=== PATIENT | female | born 1995 | race Caucasian/White ===

== ENCOUNTER 2019-08-19 19:39 | Inpatient (IN) | payer SELFPAY ==
[2019-08-19 19:49] VITALS: BP 148/86; PULSE 106; RESP 22; TEMP 36.4; O2SAT 99; BMI 23.9
--- NOTE | 2019-08-19 19:56 | ED_ITS ---
Entered by Ximena Mcdermott, acting as scribe for Arlette Edwards MD, [facility] [place] - Nausea/Vomiting/Diarrhea General: Chief complaint: Nausea/Vomiting/Diarrhea Stated complaint: VOMITING/SOB/DIZZY Time Seen by Provider: 08/19/19 19:57 Source: patient, family and RN notes reviewed Mode of arrival: ambulatory Limitations: no limitations History of Present Illness: HPI Narrative: 24 yo female presents to ED with complaints fo diarrhea, nausea, vomiting and weakness. The patient states she feels like shit . She said she had watery diarrhea all day yesterday and woke this morning nauseated and began vomiting. The patient is type 1 diabetic and her blood glucose is 444, at this time (20:10). The patient states she has muscle spasms all over. The patient mom said the patient has been short of breath today, more like breathing fast and hard. MD elicited complaint: nausea, vomiting and diarrhea Pertinent past history: other (history of DKA, type 1 diabetic) Onset (ago): day(s) (2) Description of vomiting: none Description of diarrhea: watery Associated nausea: Yes Associated abdominal pain: No Severity: severe Quality: other (all over body pain) Exacerbating factors: other (type 1 diabetic) Relieving factors: none Context: other (type 1 diabetic) Associated symtoms: Reports chest pain, malaise, nausea, short of breath and weakness; Denies change in vision, dysuria, headache(s) or palpitations Treatment prior to arrival: none Review of Systems General: Reports: 10 or more systems reviewed and unremarkable except in HPI and below Const: Reports: malaise Eyes: Denies: change in vision or blurry vision ENMT: Denies: throat pain, enlarged tonsils, painful swallowing, hoarseness, mouth pain or swelling of lips/tongue Card: Reports: chest pain; Denies: palpitations, irregular heart rhythm, edema or swelling of feet/ankles Resp: Denies: productive cough or non-productive cough GI: Reports: nausea : Denies: flank pain, difficulty urinating, painful urination, urinary frequency, urinary urgency or urinary hesitancy Musc: Reports: extremity pain (left shoulder), joint pain (left shoulder) and limited range of motion; Denies: neck pain, back pain or extremity swelling Skin/Breast: Denies: rash, itching or redness Neuro: Denies: headache or numbness in extremities Endo: Denies: excessive urination, excessive thirst or tired all the time PFSH ED PFSH: Statuses (acute, chronic, etc) shown below reflect problem list status as previously entered and may not be historically accurate Medical History (Updated 08/19/19 @ 23:05 by Radha Trevizo MD) Depression (Acute) Type 1 diabetes (Acute) Surgical History (Updated 08/19/19 @ 23:06 by Radha Trevizo MD) Previous section (Acute) Family History (Updated 08/19/19 @ 23:06 by Radha Trevizo MD) Denies family history of CAD (coronary artery disease) Bleeding disorder Cancer Social History (Updated 08/19/19 @ 23:07 by Radha Trevizo MD) Smoking and tobacco status: current every day smoker cigarettes Packs smoked per day: 0.5 Alcohol intake: current Alcohol intake frequency: few times a week Substance/Drug Use: never Caregiver/support person: Yes Housing: House Marital status: Legally Physical Exam Const: COMMON NORMALS: average body habitus, oriented x3, no limitations, healthy appearing, alert and well nourished GENERAL APPEARANCE: in distress and ill appearing HENMT: COMMON NORMALS: normocephalic and head/scalp atraumatic; oral mucous membranes not moist (Dry mucous membrane) HEAD & SCALP: normocephalic and atraumatic Eye: COMMON NORMALS: PERRL, EOMs intact bilaterally, conjunctivae normal and no scleral icterus CONJUNCTIVA: Yes conjunctivae normal PUPIL: Yes PERRL Neck/C-Spine: COMMON NORMALS: full ROM, supple, no meningeal signs, no JVD and no carotid bruits Chest: COMMONS NORMALS: inspection of chest normal and palpation of chest normal Resp: COMMON NORMALS: normal respiratory effort, no retractions, no use of accessory muscles, clear to auscultation bilaterally and percussion normal EFFORT & INSPECTION: Yes tachypneic AUSCULTATION: clear to auscultation bilaterally PERCUSSION: percussion normal Cardio: COMMON NORMALS: no JVD, regular rhythm, S1 normal heart sound, S2 normal heart sound, no gallops, no clicks, no murmurs, no rub and peripheral pulses 2+ throughout RATE: tachycardic RHYTHM: regular rhythm HEART SOUNDS: S1 normal and S2 normal PERIPHERAL PULSES: pulses 2+ throughout GI: COMMON NORMALS: normal to inspection, nondistended, normoactive bowel sounds, soft to palpation, non-tender, no hepatosplenomegaly, no masses and no bruits PALPATION: Yes soft and Yes no hepatosplenomegaly : COMMON NORMALS: Yes no CVA tenderness BLADDER/KIDNEY EXAM: Yes no CVA tenderness Back/Pelvis: COMMON NORMALS: no CVA tenderness Extremity: COMMON NORMALS: normal to inspection, full ROM, normal capillary refill, no calf tenderness and no pedal edema Neuro: COMMON NORMALS: oriented x3 SENSORIUM/ORIENTATION: Yes alert MENINGEAL SIGNS: Yes no meningeal signs Skin: COMMON NORMALS: no rashes or lesions noted, no wounds, skin turgor normal, no jaundice, no petechiae and no mottling GENERAL SKIN EXAM: no rashes or lesions noted, turgor normal and dry skin Course Consultations: Consultation #1: Dr. rTevizo, he kindly accepted the patient to his service. Vital Signs: Vital signs: Vital Signs Temperature 99.0 F 08/19/19 20:53 Pulse Rate 122 H 08/19/19 21:00 Respiratory Rate 30 H 08/19/19 21:00 Blood Pressure 132/70 08/19/19 21:00 Pulse Oximetry 100 08/19/19 21:00 MDM - Nausea/Vomiting/Diarrhea MDM Narrative: Medical decision making narrative: 24-year-old female patient with a history of type 1 diabetes mellitus who presented to the emergency department with complaints of vomiting diarrhea and feeling unwell. Evaluation in the emergency department shows the patient is in diabetic ketoacidosis, with severe acidosis. She also has acute kidney injury. She has significant leukocytosis of unclear etiology. The patient has been started on an insulin drip, given 1 ampoule of bicarbonate intravenously and is being admitted to the ICU for further evaluation and management. Medical Records: Attestation: I reviewed the patient's medical records. Lab Data: Attestation: I reviewed the patient's lab results. Labs: Lab Results 08/19/19 08/19/19 08/19/19 Range/Units 20:05 20:23 20:23 WBC 28.6 H (4.0-10.0) 10^3/ uL RBC 5.54 H (4.1-5.3) 10^6/u L Hgb 17.4 H (11.5-15.3) g/dL Hct 53.8 H (37.0-47.0) % MCV 97.1 (81-99) fL MCH 31.4 (28.0-34.0) pg MCHC 32.3 (30.0-36.0) g/dL RDW 11.5 L (12.1-15.1) % Plt Count 349 (130-400) 10^3/c mm MPV 11.7 H (7.4-10.4) fL Neut % (Auto) 81.6 % Lymph % (Auto) 6.6 % Person % (Auto) 7.6 % Eos % (Auto) 0.1 % Baso % (Auto) 0.6 % Neut # (Auto) 23.4 H (1.8-7.7) 10^3/u L Lymph # (Auto) 1.9 (0.8-4.8) 10^3/u L Person # (Auto) 2.2 H (0.2-0.9) 10^3/u L Eos # (Auto) 0.0 (0.0-0.8) 10^3/u L Baso # (Auto) 0.2 H (0.0-0.1) 10^3/u L Nucleated RBC % (a uto) 0 % Nucleated RBCs # 0.0 /100WBC Specimen Type Sample Site ABG pH (7.35-7.45) ABG pCO2 (35-45) mmHg ABG pO2 (80.0-100.0) mmH g ABG HCO3 (22-26) mmol/L ABG Base Excess (-2.0-2.0) mmol/ L Jasen Test Hematocrit (37-47) % Data Designer ID Sodium 130 L (136-145) mmol/L Potassium 6.6 H (3.5-5.1) mmol/L Chloride 95 L (98-107) mmol/L Carbon Dioxide 6 L* (22-29) mmol/L Anion Gap 35.6 H (5-19) BUN 22 H (6-20) mg/dL Creatinine 1.2 H (0.5-0.9) mg/dL GFR Calculation 55.2 L (90-130) mL/min Glucose 552 H* (74-109) mg/dL POC Glucose 444 (70-110) mg/dL Lactate (0.5-2.2) mmol/L Calcium 10.9 H (8.5-10.5) mg/dL Total Bilirubin 0.5 (0.15-1.2) mg/dL AST 21 (0-32) U/L ALT 16 (0-33) U/L Alkaline Phosphata se 178 H (35-105) IU/L Total Protein 9.1 H (6.6-8.7) g/dL Albumin 5.4 H (3.5-5.2) g/dL Globulin 3.7 (1.3-4.6) g/dL Lipase (13-60) U/L HCG, Qual (Negative) Serum Ketones (Negative) 08/19/19 08/19/19 08/19/19 Range/Units 20:23 20:23 20:23 WBC (4.0-10.0) 10^3/ uL RBC (4.1-5.3) 10^6/u L Hgb (11.5-15.3) g/dL Hct (37.0-47.0) % MCV (81-99) fL MCH (28.0-34.0) pg MCHC (30.0-36.0) g/dL RDW (12.1-15.1) % Plt Count (130-400) 10^3/c mm MPV (7.4-10.4) fL Neut % (Auto) % Lymph % (Auto) % Person % (Auto) % Eos % (Auto) % Baso % (Auto) % Neut # (Auto) (1.8-7.7) 10^3/u L Lymph # (Auto) (0.8-4.8) 10^3/u L Person # (Auto) (0.2-0.9) 10^3/u L Eos # (Auto) (0.0-0.8) 10^3/u L Baso # (Auto) (0.0-0.1) 10^3/u L Nucleated RBC % (a uto) % Nucleated RBCs # /100WBC Specimen Type Sample Site ABG pH (7.35-7.45) ABG pCO2 (35-45) mmHg ABG pO2 (80.0-100.0) mmH g ABG HCO3 (22-26) mmol/L ABG Base Excess (-2.0-2.0) mmol/ L Jasen Test Hematocrit (37-47) % Data Designer ID Sodium (136-145) mmol/L Potassium (3.5-5.1) mmol/L Chloride (98-107) mmol/L Carbon Dioxide (22-29) mmol/L Anion Gap (5-19) BUN (6-20) mg/dL Creatinine (0.5-0.9) mg/dL GFR Calculation (90-130) mL/min Glucose (74-109) mg/dL POC Glucose (70-110) mg/dL Lactate 3.8 H (0.5-2.2) mmol/L Calcium (8.5-10.5) mg/dL Total Bilirubin (0.15-1.2) mg/dL AST (0-32) U/L ALT (0-33) U/L Alkaline Phosphata se (35-105) IU/L Total Protein (6.6-8.7) g/dL Albumin (3.5-5.2) g/dL Globulin (1.3-4.6) g/dL Lipase 13 (13-60) U/L HCG, Qual (Negative) Serum Ketones Positive H (Negative) 08/19/19 08/19/19 Range/Units 21:45 21:50 WBC (4.0-10.0) 10^3/ uL RBC (4.1-5.3) 10^6/u L Hgb (11.5-15.3) g/dL Hct (37.0-47.0) % MCV (81-99) fL MCH (28.0-34.0) pg MCHC (30.0-36.0) g/dL RDW (12.1-15.1) % Plt Count (130-400) 10^3/c mm MPV (7.4-10.4) fL Neut % (Auto) % Lymph % (Auto) % Person % (Auto) % Eos % (Auto) % Baso % (Auto) % Neut # (Auto) (1.8-7.7) 10^3/u L Lymph # (Auto) (0.8-4.8) 10^3/u L Person # (Auto) (0.2-0.9) 10^3/u L Eos # (Auto) (0.0-0.8) 10^3/u L Baso # (Auto) (0.0-0.1) 10^3/u L Nucleated RBC % (a uto) % Nucleated RBCs # /100WBC Specimen Type Arterial Sample Site Radial, left ABG pH 6.99 L* (7.35-7.45) ABG pCO2 15.3 L* (35-45) mmHg ABG pO2 125.0 H (80.0-100.0) mmH g ABG HCO3 3.7 L (22-26) mmol/L ABG Base Excess -26.0 L (-2.0-2.0) mmol/ L Jasen Test Pos Hematocrit 51.5 H (37-47) % Data Designer ID [email or web address] Sodium (136-145) mmol/L Potassium (3.5-5.1) mmol/L Chloride (98-107) mmol/L Carbon Dioxide (22-29) mmol/L Anion Gap (5-19) BUN (6-20) mg/dL Creatinine (0.5-0.9) mg/dL GFR Calculation (90-130) mL/min Glucose (74-109) mg/dL POC Glucose (70-110) mg/dL Lactate (0.5-2.2) mmol/L Calcium (8.5-10.5) mg/dL Total Bilirubin (0.15-1.2) mg/dL AST (0-32) U/L ALT (0-33) U/L Alkaline Phosphata se (35-105) IU/L Total Protein (6.6-8.7) g/dL Albumin (3.5-5.2) g/dL Globulin (1.3-4.6) g/dL Lipase (13-60) U/L HCG, Qual Negative (Negative) Serum Ketones (Negative) Discharge Plan Discharge Patient Disposition: Admitted As Inpatient Clinical Impression: ADALID (acute kidney injury) DKA (diabetic ketoacidoses) Qualifiers: Diabetes mellitus type: type 1 Diabetes mellitus complication detail: without coma Qualified Code(s): E10.10 - Type 1 diabetes mellitus with ketoacidosis without coma Leukocytosis Qualifiers: Leukocytosis type: unspecified Qualified Code(s): D72.829 - Elevated white blood cell count, unspecified Condition: Stable Coding Level of Care Code ED Crossbow Maker for Chg Fwd The documentation recorded by the Baldemar amador Valerie R, accurately reflects the service I personally performed and the decisions made by Jerry burks Adegoke I, MD, [facility] Aug 19, 2019 19:39
[2019-08-19 20:08] LABS: Glucose Point of Care 444 mg/dL (70-110)
[2019-08-19] MEDS: sodium chloride 0.9% 1,000 ML 999 ML IV ×3 (20:17→23:08)
[2019-08-19] MEDS: ondansetron 2 mg/ML SDV 2 mL 4 MG IVP (20:19)
[2019-08-19 20:31] LABS: Basophils # 0.2 10^3/uL (0.0-0.1); Basophils % 0.6 %; Eosinophils % 0.1 %; Hematocrit 53.8 % (37.0-47.0); Hemoglobin 17.4 g/dL (11.5-15.3); Lymphocytes # 1.9 10^3/uL (0.8-4.8); Lymphocytes % 6.6 %; Mean Corpuscular HGB Conc 32.3 g/dL (30.0-36.0); Mean Corpuscular Hemoglobin 31.4 pg (28.0-34.0); Mean Corpuscular Volume 97.1 fL (81-99); Mean Platelet Volume 11.7 fL (7.4-10.4); Monocytes # 2.2 10^3/uL (0.2-0.9); Monocytes % 7.6 %; Neutrophils # 23.4 10^3/uL (1.8-7.7); Neutrophils % 81.6 %; Nucleated Red Blood Cells % 0 %; Platelet Count 349 10^3/cmm (130-400); Red Blood Count 5.54 10^6/uL (4.1-5.3); Red Cell Distribution Width 11.5 % (12.1-15.1); White Blood Count 28.6 10^3/uL (4.0-10.0)
[2019-08-19 20:38] LABS: Ketone (Acetest) Serum Positive (Negative)
[2019-08-19 20:45] LABS: Alanine Aminotransferase 16 U/L (0-33); Albumin Level 5.4 g/dL (3.5-5.2); Alkaline Phosphatase 178 IU/L (35-105); Anion Gap 35.6 (5-19); Aspartate Amino Transferase 21 U/L (0-32); Blood Urea Nitrogen 22 mg/dL (6-20); Calcium 10.9 mg/dL (8.5-10.5); Chloride 95 mmol/L (98-107); Globulin 3.7 g/dL (1.3-4.6); Glomerular Filtration Rate 55.2 mL/min (90-130); Potassium 6.6 mmol/L (3.5-5.1); Sodium 130 mmol/L (136-145); Total Bilirubin 0.5 mg/dL (0.15-1.2); Total Protein 9.1 g/dL (6.6-8.7)
[2019-08-19 20:46] LABS: Lactate (Lactic Acid level) 3.8 mmol/L (0.5-2.2)
[2019-08-19] MEDS: promethazine 25 mg/mL SDV 1 mL IM (20:52)
[2019-08-19 20:53] VITALS: BP 124/76; PULSE 110; RESP 26; TEMP 37.2; O2SAT 100
[2019-08-19 21:00] VITALS: BP 132/70; PULSE 122; RESP 30; O2SAT 100
--- NOTE | 2019-08-19 21:11 | XR_ITS ---
WS: [id number] CHEST XRAY TECHNIQUE: Portable chest. CLINICAL INFORMATION: DKA COMPARISON: FINDINGS: Heart: Normal cardiac silhouette. Lungs: Lungs are clear. No consolidation or pleural effusion. Bones: Normal visualized bony structures. XR/XR chest 1V portable [id number] IMPRESSION: Normal chest
[2019-08-19 21:24] LABS: Carbon Dioxide 6 mmol/L (22-29); Glucose 552 mg/dL (74-109)
[2019-08-19 21:56] LABS: Arterial Blood Gas Hematocrit 51.5 % (37-47); Blood Gas Allen Test Pos; Blood Gas Sample Site Radial, left; Blood Gas Sample Type Arterial; HCO3 ABG 3.7 mmol/L (22-26)
[2019-08-19 21:57] LABS: ABG PCO2 15.3 mmHg (35-45); ABG PH Result 6.99 (7.35-7.45)
[2019-08-19 22:05] LABS: HCG Qualitative Urine. Negative (Negative)
[2019-08-19] MEDS: insulin regular-human 250 UNIT in sodium chloride 0.9% 250 ML 12.6 UNIT IV (22:05)
--- NOTE | 2019-08-19 22:14 | CTR_ITS ---
PROCEDURE INFORMATION: Exam: CT Abdomen And Pelvis Without Contrast Exam date and time: 08/19/2019 10:28 PM Age: 24 years old Clinical indication: Nausea and vomiting and other: Dka; Prior surgery; Surgery date: 6+ months; Surgery type: ; Additional info: Vomiting, diarrhea, dka TECHNIQUE: Imaging protocol: Computed tomography of the abdomen and pelvis without contrast. Total DLP: 545.02 mGy-cm Radiation optimization: All CT scans at this facility use at least one of these dose optimization techniques: automated exposure control; mA and/or kV adjustment per patient size (includes targeted exams where dose is matched to clinical indication); or iterative reconstruction. COMPARISON: US Umbilical Artery Echo [id number] 05/23/2016 12:46 PM FINDINGS: Tubes, catheters and devices: A catheter is present in the urinary bladder. Liver: Normal. No mass. Gallbladder and bile ducts: Normal. No calcified stones. No ductal dilation. Pancreas: Normal. No ductal dilation. Spleen: Normal. No splenomegaly. Adrenals: Normal. No mass. Kidneys and ureters: Normal. No hydronephrosis. Stomach and bowel: Mild wall thickening and pericolonic fat stranding is seen in the proximal ascending colon. No intestinal obstruction. Appendix: The appendix is normal. Intraperitoneal space: Unremarkable. No free air. No significant fluid collection. Vasculature: A left-sided IVC is noted. Lymph nodes: Unremarkable. No enlarged lymph nodes. Bladder: Unremarkable as visualized. Reproductive: The uterus and ovaries appear normal. A 3.6 cm left ovarian cyst is noted. An IUD is present in the uterus. Bones/joints: Unremarkable. No acute fracture. Soft tissues: Unremarkable. CT/CT abdomen pelvis con [id number] IMPRESSION: Possible mild colitis. Radiation Dose CTDIVOL = (mGy): DLP = 545.02 (mGy-cm)
[2019-08-19] MEDS: sodium bicarbonate 8.4% 1 mEq/mL 50mL Syr 50 MEQ IVP (22:36)
[2019-08-19 22:51] LABS: Lipase 13 U/L (13-60)
[2019-08-19 23:00] VITALS: BP 135/74; PULSE 117; RESP 28; O2SAT 100
--- NOTE | 2019-08-19 23:04 | PM.HP ---
Providers/Chief Complaint Primary Care Provider: Cricket Collins MD Chief Complaint: VOMITING/SOB/DIZZY History of Present Illness Nikki Smith is a 24 year old female who presented to the hospital with chief complaint of nausea vomiting and diarrhea. Patient is stating that her symptoms started today with intractable nausea and vomiting, she has had more than 10 episodes throughout the day, she is also noticing some abdominal cramps and hypogastric region which is radiating towards her back every time she is urinating. She has noticed subjective fevers, no cough, sputum production, headache, recent flulike symptoms. 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 She ran out of Lantus insulin 2 nights ago. She has been using short acting insulin with carb counting. Diagnostics in ER showed DKA, severe metabolic acidosis, lactic acidemia, ADALID, leukocytosis without obvious signs of infection, chest x-ray negative Urinalysis and lipase is pending I have ordered 1 amp of bicarb currently she is on insulin drip along normal saline second liter of fluid Review of Systems Const: Reports: chills, body aches, change in appetite, fatigue and malaise; Denies: fever Eyes: Denies: change in vision ENMT: Denies: throat pain Card: Denies: chest pain Resp: Denies: shortness of breath GI: Reports: abdominal pain, nausea and vomiting; Denies: coffee grounds in vomit, difficulty swallowing, heartburn/indigestion or constipation : Reports: difficulty urinating, painful urination and urinary frequency; Denies: flank pain Musc: Denies: neck pain or back pain Skin/Breast: Denies: rash Neuro: Denies: headache Psych: Denies: anxiety Endo: Denies: excessive urination Miki/Lymph: Denies: easy bruising All/Imm: Denies: hives Medications/Allergies Allergies Allergy/AdvReac Type Severity Reaction Status Date / Time No Known Allergies Allergy Verified 08/19/19 19:53 PFSH Acute PFSH: Statuses (acute, chronic, etc) shown below reflect problem list status as previously entered and may not be historically accurate Medical History (Updated 08/19/19 @ 23:05 by Radha Trevizo MD) Depression (Acute) Type 1 diabetes (Acute) Surgical History (Updated 08/19/19 @ 23:06 by Radha Trevizo MD) Previous section (Acute) Family History (Updated 08/19/19 @ 23:06 by Radha Trevizo MD) Denies family history of CAD (coronary artery disease) Bleeding disorder Cancer Social History (Updated 08/19/19 @ 23:07 by Radha Trevizo MD) Smoking and tobacco status: current every day smoker cigarettes Packs smoked per day: 0.5 Alcohol intake: current Alcohol intake frequency: few times a week Substance/Drug Use: never Caregiver/support person: Yes Housing: House Marital status: Legally Vitals/I&O/Wt Last Vital Signs Temp 99.0 F 08/19/19 20:53 Pulse 110 H 08/19/19 20:53 Resp 26 H 08/19/19 20:53 BP 124/76 08/19/19 20:53 Pulse Ox 100 08/19/19 20:53 08/19/19 08/19/19 08/20/19 14:59 22:59 06:59 Intake Total 1002.94 / 1002.94 Balance 1002.94 / 1002.94 Weight last 48 hrs Weight 61.235 kg Physical Exam Narrative: EXAM NARRATIVE: This is a young female looks extremely dehydrated, seems to be in distress because abdominal pain She is tachypneic without any respiratory distress Abdomen is soft nontender nondistended bowels are present S1, S2, tachycardia, no signs of heart failure Lungs are clear to auscultation Patient seems anxious with irritable mood No active suicidal homicidal ideation Skin does not show any signs of ischemia gangrene ulcer Lower extremities without any gross abnormalities Data : 08/19/19 20:23 08/19/19 20:23 A&P Assessment and plan (1) DKA (diabetic ketoacidoses): Status: Acute Qualifiers: Diabetes mellitus complication detail: without coma Diabetes mellitus type: type 1 Qualified Code(s): E10.10 - Type 1 diabetes mellitus with ketoacidosis without coma Code(s): E11.10 - Type 2 diabetes mellitus with ketoacidosis without coma (2) ADALID (acute kidney injury): Status: Acute Code(s): N17.9 - Acute kidney failure, unspecified (3) Leukocytosis: Status: Acute Qualifiers: Leukocytosis type: unspecified Qualified Code(s): D72.829 - Elevated white blood cell count, unspecified Code(s): D72.829 - Elevated white blood cell count, unspecified Additional A&P Information Severe diabetic ketoacidosis She ran out of Lantus insulin 2 nights ago, she has been having diarrhea with urinary frequency and burning DKA protocol Severe metabolic acidosis Lactic acidemia High anion gap with respiratory alkalosis 1 amp of bicarb Patient has received 2 L of fluid, I will give her 1 more normal saline bolus Leukocytosis with tachypnea and tachycardia I believe the symptoms are secondary to ketosis but because she is complaining of urinary tract infection symptoms I will start her on ceftriaxone, she has received adequate fluids in ER Hyperglycemia induced hyponatremia: Corrected sodium is normal Bipolar disorder: Previously she was on lithium and Depakote currently she is not taking any anxiolytics or mood stabilizers No need of DVT prophylaxis because of her young age UTI: I will start her on ceftriaxone Attestations Medical Necessity Statement*: Anticipating her stay to cross more than 2 midnights, clinical course will depend on her glucose control, she is in DKA needs ICU care Time Spent in Patient Care: 60 Coding Level of Care Code Acute Janitor Supervisor for [facility] Junaid Diagnoses DKA (diabetic ketoacidoses) E10.10 Diabetes mellitus complication detail: without coma Diabetes mellitus type: type 1 ADALID (acute kidney injury) N17.9 Leukocytosis D72.829 Leukocytosis type: unspecified
[2019-08-19 23:17] LABS: Protein Urine Trace (Negative); Urine Appearance Clear (CLEAR); Urine Color Straw (Yellow); pH Urine 5 (5-7)
[2019-08-19 23:18] LABS: Bilirubin Urine Neg (NEGATIVE); Blood Urine 2+ (Negative); Glucose Urine UA 4+ (Normal); Ketones Urine 3+ (Negative); Nitrate Urine Negative (Negative); Urobilinogen Urine Norm (Negative)
[2019-08-19 23:20] LABS: Add Urine Microscopic? YES; Leukocyte Esterase Urine Negative (Negative)
[2019-08-19 23:22] LABS: Add Urine Culture? No; Amphetamines Screen Urine Negative (Negative); Bacteria Urine TRACE; Barbiturates Screen Urine Negative (Negative); Benzodiazepines Screen Urine Negative (Negative); Cocaine Screen Urine Negative (Negative); Opiate Screen Urine Negative (Negative); PCP Screen Urine Negative (Negative); RBC Urine 0-4 /hpf (0-2); WBC Urine 0-4 /hpf (0-5)
[2019-08-19 23:23] LABS: THC Screen Urine Negative (Negative)
--- NOTE | 2019-08-19 23:24 | PC.NURSE ---
Lakisha's blood sugar is 251, nurse was notified
[2019-08-19 23:25] LABS: Glucose Point of Care 251 mg/dL (70-110)
[2019-08-19 23:25] LABS: Glucose Point of Care 472 mg/dL (70-110)
[2019-08-19 23:25] LABS: Glucose Point of Care 417 mg/dL (70-110)
[2019-08-19 23:47] VITALS: BP 126/64; PULSE 110; RESP 28; O2SAT 100
[2019-08-20] VITALS (31 sets, daily range): BP systolic 86–122; BP diastolic 41–73; PULSE 85–125; RESP 17–26; TEMP 36.8–38.1; O2SAT 97–100
[2019-08-20 00:41] LABS: Glucose Point of Care 143 mg/dL (70-110)
[2019-08-20] MEDS: sodium bicarbonate 150 MEQ in dextrose 5% 1,000 ML IV (00:44)
[2019-08-20 01:19] LABS: Glucose Point of Care 112 mg/dL (70-110)
[2019-08-20 02:20] LABS: Glucose Point of Care 120 mg/dL (70-110)
[2019-08-20 03:00] LABS: Blood Urea Nitrogen 14 mg/dL (6-20); Chloride 106 mmol/L (98-107); Glomerular Filtration Rate 76.9 mL/min (90-130); Glucose 145 mg/dL (74-109); Osmolality Calculated 281 mOsm/kg (285-295); Sodium 136 mmol/L (136-145)
[2019-08-20 03:06] LABS: Carbon Dioxide 9 mmol/L (22-29)
[2019-08-20 03:18] LABS: Glucose Point of Care 140 mg/dL (70-110)
[2019-08-20 04:16] LABS: Glucose Point of Care 139 mg/dL (70-110)
[2019-08-20 04:33] LABS: Basophils # 0.1 10^3/uL (0.0-0.1); Basophils % 0.4 %; Hematocrit 38.3 % (37.0-47.0); Lymphocytes % 10.5 %; Mean Corpuscular HGB Conc 33.9 g/dL (30.0-36.0); Mean Corpuscular Hemoglobin 31.4 pg (28.0-34.0); Mean Corpuscular Volume 92.5 fL (81-99); Mean Platelet Volume 11.7 fL (7.4-10.4); Monocytes # 1.4 10^3/uL (0.2-0.9); Monocytes % 7.4 %; Neutrophils # 15.4 10^3/uL (1.8-7.7); Neutrophils % 78.9 %; Nucleated Red Blood Cells % 0 %; Platelet Count 241 10^3/cmm (130-400); Red Blood Count 4.14 10^6/uL (4.1-5.3); Red Cell Distribution Width 11.5 % (12.1-15.1); White Blood Count 19.5 10^3/uL (4.0-10.0)
[2019-08-20 04:43] LABS: Anion Gap 22.7 (5-19); Blood Urea Nitrogen 14 mg/dL (6-20); Calcium 9.3 mg/dL (8.5-10.5); Carbon Dioxide 11 mmol/L (22-29); Chloride 108 mmol/L (98-107); Glomerular Filtration Rate 68.1 mL/min (90-130); Glucose 176 mg/dL (74-109); Osmolality Calculated 287 mOsm/kg (285-295); Potassium 3.7 mmol/L (3.5-5.1); Sodium 138 mmol/L (136-145)
[2019-08-20 05:19] LABS: Glucose Point of Care 137 mg/dL (70-110)
--- NOTE | 2019-08-20 06:24 | PC.NURSE ---
SHIFT SUMMARY PT HAS BEEN ALERT AND ORIENTED. PT INSULIN DRIP REMAINS RUNNING. PT HAS SLIGHT NAUSEA. PT HAS HAD ADEQUATE URINE OUTPUT. PT IV REMAINS PATENT.
[2019-08-20 06:34] LABS: Glucose Point of Care 217 mg/dL (70-110)
[2019-08-20 07:30] LABS: Glucose Point of Care 194 mg/dL (70-110)
[2019-08-20] MEDS: D5-NS 0.45% + KCL 20 mEq 20 MEQ/1,000 ML BAG 100 MEQ IV ×2 (07:36→17:23)
--- NOTE | 2019-08-20 07:45 | PM.PN ---
Subjective Subjective: Interval history: Nikki reports she is feeling better. Does not feel nauseated. Would like a clear liquid diet. Does admit to some congestion lately along with some loose stools. Medications: Reviewed: Yes Vitals/I&O/Wt Last Vital Signs Temp 99.7 F H 08/20/19 06:00 Pulse 102 H 08/20/19 06:00 Resp 23 H 08/20/19 06:00 BP 94/53 08/20/19 06:00 Pulse Ox 99 08/20/19 06:00 08/19/19 08/20/19 08/20/19 22:59 06:59 14:59 Intake Total 1002.94 / 1002.94 1036.885 / 2039.825 3.823 / 3.823 Output Total 850 / 850 Balance 1002.94 / 1002.94 186.885 / 1189.825 3.823 / 3.823 Weight last 48 hrs Weight 61.235 kg Physical Exam Narrative: EXAM NARRATIVE: General exam is no apparent distress Cardiovascular slightly tachycardic, no murmur Lungs clear Abdomen is soft with positive bowel sounds Extremities no cyanosis clubbing or edema Urinary Catheter Management^: Shannon: Cath Placed During This Visit: no 2-way Urethral: Cath Placed During This Visit: no Data : 08/20/19 03:45 08/20/19 03:45 A&P Assessment and plan (1) DKA (diabetic ketoacidoses): Associated with severe anion gap metabolic acidosis consistent with DKA on admission. Pseudohyponatremia noted. She received bicarb in the emergency department. Still with significant anion gap. Still needs insulin drip, D5 until this clears. Next BMP is planned at 09 100. However, is improving and bicarb is climbing. Etiology is secondary to her running out of insulin several days ago, although viral illness is also possible. When anion gap clears, will initiate subcutaneous insulin. She will likely be discharged tomorrow if continues to improve. Status: Acute Qualifiers: Diabetes mellitus complication detail: without coma Diabetes mellitus type: type 1 Qualified Code(s): E10.10 - Type 1 diabetes mellitus with ketoacidosis without coma Code(s): E11.10 - Type 2 diabetes mellitus with ketoacidosis without coma (2) ADALID (acute kidney injury): Resolved Status: Acute Code(s): N17.9 - Acute kidney failure, unspecified (3) Leukocytosis: Status: Acute Qualifiers: Leukocytosis type: unspecified Qualified Code(s): D72.829 - Elevated white blood cell count, unspecified Code(s): D72.829 - Elevated white blood cell count, unspecified Additional A&P Information Elevated temperature. Will need to exclude influenza. Check blood cultures. She was placed on Rocephin on admission for some concerns of urinary tract infection. We will continue this until further studies have been obtained. On review of urine 0-4 white blood cells are noted. Chest x-ray reading is pending. Question of colitis on CT. She has had no further loose stool here Leukocytosis. Likely demargination from severe DKA, but cannot exclude viral illness History of bipolar disorder Attestations Medical Necessity Statement*: Needs continued hospitalization for insulin drip secondary to DKA Critical Care Time: 32 minutes spent in critical care time secondary to insulin drip, severe acidosis on admission, exploration of possible infectious disease. Critical Care Time (min): 32 Coding Level of Care Code Acute Head Orthopedic Team Physician for [employer] Fwd Diagnoses DKA (diabetic ketoacidoses) E10.10 Diabetes mellitus complication detail: without coma Diabetes mellitus type: type 1 ADALID (acute kidney injury) N17.9 Leukocytosis D72.829 Leukocytosis type: unspecified
[2019-08-20 08:38] LABS: Glucose Point of Care 166 mg/dL (70-110)
[2019-08-20 09:16] LABS: Influenza A by IFA Negative (Negative); Influenza B by IFA Negative (Negative)
[2019-08-20] MEDS: cefTRIAXone 1,000 MG in sodium chloride 0.9% (plus) 50 ML 100 MG IV (09:39)
[2019-08-20 09:47] LABS: Glucose Point of Care 295 mg/dL (70-110)
[2019-08-20 10:44] LABS: Glucose Point of Care 347 mg/dL (70-110)
[2019-08-20 11:08] LABS: Anion Gap 18.4 (5-19); Blood Urea Nitrogen 10 mg/dL (6-20); Calcium 8.8 mg/dL (8.5-10.5); Carbon Dioxide 18 mmol/L (22-29); Chloride 103 mmol/L (98-107); Creatinine Clr Calc Pharmacy 95.7481; Glomerular Filtration Rate 88.1 mL/min (90-130); Glucose 359 mg/dL (74-109); Osmolality Calculated 292 mOsm/kg (285-295); Potassium 3.4 mmol/L (3.5-5.1); Sodium 136 mmol/L (136-145)
[2019-08-20 11:37] LABS: Glucose Point of Care 270 mg/dL (70-110)
[2019-08-20] MEDS: acetaminophen 325 mg Tablet 650 MG PO ×2 (11:43→20:29)
[2019-08-20 12:36] LABS: Glucose Point of Care 228 mg/dL (70-110)
[2019-08-20 13:44] LABS: Glucose Point of Care 210 mg/dL (70-110)
[2019-08-20 14:48] LABS: Glucose Point of Care 128 mg/dL (70-110)
[2019-08-20 15:35] LABS: Glucose Point of Care 79 mg/dL (70-110)
[2019-08-20 16:36] LABS: Glucose Point of Care 106 mg/dL (70-110)
[2019-08-20 16:55] LABS: Blood Gas CCRB Time 1010
[2019-08-20 17:46] LABS: Glucose Point of Care 101 mg/dL (70-110)
[2019-08-20 18:39] LABS: Glucose Point of Care 154 mg/dL (70-110)
--- NOTE | 2019-08-20 19:27 | PM.EVENT ---
Event Note Event Note: . Gap is closed, I will bridge her with subcutaneous insulin with IV insulin for 2 hours continue D5 half-normal saline with potassium. I will start her on Lantus 25 units twice a day
[2019-08-20 19:38] LABS: Glucose Point of Care 155 mg/dL (70-110)
[2019-08-20] MEDS: insulin glargine 100 units/1 mL 25 UNIT SUBCUT (20:29)
[2019-08-20 20:38] LABS: Glucose Point of Care 160 mg/dL (70-110)
--- NOTE | 2019-08-20 22:39 | PC.NURSE ---
PER DR BARRIOS ORDERS. LANTUS WAS GIVEN, INSULIN DRIP RAN FOR TWO HOURS TO BRIDGE HER OVER. INSULIN NOW TURNED OFF. WILL RECHECK BLOOD SUGAR IN A COUPLE OF HOURS. PT HAS NO COMPLAINTS CURRENTLY. PT WAS ABLE TO EAT, NO NAUSEA OR VOMITING.
[2019-08-21] VITALS (10 sets, daily range): BP systolic 94–118; BP diastolic 55–96; PULSE 76–93; RESP 13–21; TEMP 36.8–37.2; O2SAT 97–100
[2019-08-21 00:56] LABS: Glucose Point of Care 251 mg/dL (70-110)
[2019-08-21 04:22] LABS: Basophils % 0.2 %; Eosinophils % 0.3 %; Hemoglobin 12.1 g/dL (11.5-15.3); Lymphocytes # 3.3 10^3/uL (0.8-4.8); Lymphocytes % 33.1 %; Mean Corpuscular HGB Conc 34.6 g/dL (30.0-36.0); Mean Corpuscular Volume 89.7 fL (81-99); Mean Platelet Volume 11.5 fL (7.4-10.4); Monocytes # 0.8 10^3/uL (0.2-0.9); Monocytes % 7.8 %; Neutrophils # 5.7 10^3/uL (1.8-7.7); Neutrophils % 58.1 %; Nucleated Red Blood Cells % 0 %; Platelet Count 182 10^3/cmm (130-400); Red Cell Distribution Width 11.6 % (12.1-15.1); White Blood Count 9.8 10^3/uL (4.0-10.0)
[2019-08-21 04:31] LABS: Anion Gap 13.1 (5-19); Blood Urea Nitrogen 6 mg/dL (6-20); Calcium 8.9 mg/dL (8.5-10.5); Carbon Dioxide 22 mmol/L (22-29); Chloride 107 mmol/L (98-107); Glomerular Filtration Rate 122.8 mL/min (90-130); Glucose 298 mg/dL (74-109); Osmolality Calculated 293 mOsm/kg (285-295); Potassium 4.1 mmol/L (3.5-5.1); Sodium 138 mmol/L (136-145)
[2019-08-21 06:22] LABS: Glucose Point of Care 237 mg/dL (70-110)
--- NOTE | 2019-08-21 07:01 | PC.NURSE ---
SHIFT SUMMARY PT HAS BEEN ALERT AND ORIENTATED. DR BARRIOS GAVE ORDER TO SHU OVIEDO. PT TOOK SHOWER THIS MORNING. PT LUNGS REMAIN CLEAR. AFEBRILE. NO NAUSEA OR VOMITING NOTED THIS SHIFT. WAS ABLE TO EAT A SANDWICH.
--- NOTE | 2019-08-21 07:36 | PM.DCS ---
Discharge Providers Date of Admission: 08/19/19 22:36 Date of Discharge: Date of Discharge: August 21, 2019 Attending Provider at Admission: Radha Trevizo MD Attending Provider at Discharge: Mat Chapin MD Primary Care Provider: Cricket Collins MD Diagnoses at Discharge Discharge Diagnosis (1) DKA (diabetic ketoacidoses): Status: Acute Problem details: Anion gap closed. DKA resolved. Discharge home Qualifiers: Diabetes mellitus complication detail: without coma Diabetes mellitus type: type 1 Qualified Code(s): E10.10 - Type 1 diabetes mellitus with ketoacidosis without coma (2) ADALID (acute kidney injury): Status: Acute Problem details: Resolved (3) Leukocytosis: Status: Acute Problem details: Resolved Qualifiers: Leukocytosis type: unspecified Qualified Code(s): D72.829 - Elevated white blood cell count, unspecified Reason for Visit Reason for Visit: Reason For Visit: DKA Hospital Course Hospital Course: Nikki is a 24-year-old white female who presented to the hospital with history of not taking her insulin for the last 2 days, running out. She was in DKA with a pH of 6.9. She received resuscitation in the emergency department including fluids, bicarb, insulin drip and transferred to the ICU. While in the ICU she improved rather rapidly. By August 21 her anion gap was closed. She received subcutaneous insulin the night before and had transition to this well. It was thought she could be discharged home with instructions to take her insulin as prescribed. Work-up during her hospitalization did not demonstrate any infection, with her receiving urine testing, chest x-ray, influenza testing. Physical Exam Narrative: EXAM NARRATIVE: General exam no apparent distress Cardiovascular regular in rhythm without murmur Lungs clear Abdomen is soft with positive bowel sounds Extremities no cyanosis clubbing or edema Urinary Catheter Management^: Shannon: Cath Placed During This Visit: no 2-way Urethral: Cath Placed During This Visit: no Discharge Data Data Completed and Pending: Completed Studies During Hospitalization Category Date Time Status CT abdomen pelvis wo con [id number] Urge nt Cat Scan 08/19/19 22:14 Completed XR chest 1V sunny ble [id number] Stat Exams 08/19/19 21:11 Completed Pending at discharge Category Date Time Status Blood Culture Sta t Lab 08/20/19 10:18 Results Labs from last 24 hours 08/21/19 08/21/1920 06:19 03:49 03:49 WBC 9.8 RBC 3.90 L Hgb 12.1 Hct 35.0 L MCV 89.7 MCH 31.0 MCHC 34.6 RDW 11.6 L Plt Count 182 MPV 11.5 H Neut % (Auto) 58.1 Lymph % (Auto) 33.1 [place] % (Auto) 7.8 Eos % (Auto) 0.3 Baso % (Auto) 0.2 Neut # (Auto) 5.7 Lymph # (Auto) 3.3 [place] # (Auto) 0.8 Eos # (Auto) 0.0 Baso # (Auto) 0.0 Nucleated RBC % (a uto) 0 Nucleated RBCs # 0.0 O2 Delivery Device Blood Gas Notified Time Sodium 138 Potassium 4.1 Chloride 107 Carbon Dioxide 22 Anion Gap 13.1 BUN 6 Creatinine 0.6 GFR Calculation 122.8 Glucose 298 H POC Glucose 237 Calculated Osmolal ity 293 Calcium 8.9 Influenza Type A A g POC Influenza B Ag 08/21/19 08/20/19 08/20/19 00:50 20:33 19:30 WBC RBC Hgb Hct MCV MCH MCHC RDW Plt Count MPV Neut % (Auto) Lymph % (Auto) [place] % (Auto) Eos % (Auto) Baso % (Auto) Neut # (Auto) Lymph # (Auto) [place] # (Auto) Eos # (Auto) Baso # (Auto) Nucleated RBC % (a uto) Nucleated RBCs # O2 Delivery Device Blood Gas Notified Time Sodium Potassium Chloride Carbon Dioxide Anion Gap BUN Creatinine GFR Calculation Glucose POC Glucose 251 160 155 Calculated Osmolal ity Calcium Influenza Type A A g POC Influenza B Ag 08/20/19 08/20/19 08/20/19 18:36 17:31 16:34 WBC RBC Hgb Hct MCV MCH MCHC RDW Plt Count MPV Neut % (Auto) Lymph % (Auto) [place] % (Auto) Eos % (Auto) Baso % (Auto) Neut # (Auto) Lymph # (Auto) [place] # (Auto) Eos # (Auto) Baso # (Auto) Nucleated RBC % (a uto) Nucleated RBCs # O2 Delivery Device Blood Gas Notified Time Sodium Potassium Chloride Carbon Dioxide Anion Gap BUN Creatinine GFR Calculation Glucose POC Glucose 154 101 106 Calculated Osmolal ity Calcium Influenza Type A A g POC Influenza B Ag 08/20/19 08/20/19 08/20/19 15:30 14:44 13:39 WBC RBC Hgb Hct MCV MCH MCHC RDW Plt Count MPV Neut % (Auto) Lymph % (Auto) [place] % (Auto) Eos % (Auto) Baso % (Auto) Neut # (Auto) Lymph # (Auto) [place] # (Auto) Eos # (Auto) Baso # (Auto) Nucleated RBC % (a uto) Nucleated RBCs # O2 Delivery Device Blood Gas Notified Time Sodium Potassium Chloride Carbon Dioxide Anion Gap BUN Creatinine GFR Calculation Glucose POC Glucose 79 128 210 Calculated Osmolal ity Calcium Influenza Type A A g POC Influenza B Ag 08/20/19 08/20/19 08/20/19 12:29 11:33 10:40 WBC RBC Hgb Hct MCV MCH MCHC RDW Plt Count MPV Neut % (Auto) Lymph % (Auto) [place] % (Auto) Eos % (Auto) Baso % (Auto) Neut # (Auto) Lymph # (Auto) [place] # (Auto) Eos # (Auto) Baso # (Auto) Nucleated RBC % (a uto) Nucleated RBCs # O2 Delivery Device Blood Gas Notified Time Sodium Potassium Chloride Carbon Dioxide Anion Gap BUN Creatinine GFR Calculation Glucose POC Glucose 228 270 347 Calculated Osmolal ity Calcium Influenza Type A A g POC Influenza B Ag 08/20/19 08/20/19 08/20/19 10:14 09:42 08:31 WBC RBC Hgb Hct MCV MCH MCHC RDW Plt Count MPV Neut % (Auto) Lymph % (Auto) [place] % (Auto) Eos % (Auto) Baso % (Auto) Neut # (Auto) Lymph # (Auto) [place] # (Auto) Eos # (Auto) Baso # (Auto) Nucleated RBC % (a uto) Nucleated RBCs # O2 Delivery Device Blood Gas Notified Time Sodium 136 Potassium 3.4 L Chloride 103 Carbon Dioxide 18 L Anion Gap 18.4 BUN 10 Creatinine 0.8 GFR Calculation 88.1 L Glucose 359 H POC Glucose 295 166 Calculated Osmolal ity 292 Calcium 8.8 Influenza Type A A g POC Influenza B Ag 08/20/19 08/19/19 07:55 21:45 WBC RBC Hgb Hct MCV MCH MCHC RDW Plt Count MPV Neut % (Auto) Lymph % (Auto) [place] % (Auto) Eos % (Auto) Baso % (Auto) Neut # (Auto) Lymph # (Auto) [place] # (Auto) Eos # (Auto) Baso # (Auto) Nucleated RBC % (a uto) Nucleated RBCs # O2 Delivery Device Not Reportable Blood Gas Notified Time 1010 Sodium Potassium Chloride Carbon Dioxide Anion Gap BUN Creatinine GFR Calculation Glucose POC Glucose Calculated Osmolal ity Calcium Influenza Type A A g Negative POC Influenza B Ag Negative Vitals: Last Vital Signs Temp 98.2 F 08/21/19 04:00 Pulse 76 08/21/19 06:00 Resp 16 08/21/19 06:00 BP 102/55 08/21/19 06:00 Pulse Ox 98 08/21/19 06:00 Discharge Plan Discharge Patient Disposition: Home, Self-Care Condition: Stable Prescriptions: Continued Lantus U-100 Insulin 100 unit/mL Solution 25 unit SUBCUT BID RF: 0 Humalog KwikPen Insulin RF: 0 Discharge Orders: Discharge Order (Routine); Ordered 08/21/19 Ordered By: Mat Chapin Referrals: Cricket Collins MD [Primary Care Provider] - 4-7 days Discharge Diet: Diabetic Discharge Activity: Resume usual activity Activity Restrictions/Additional Instructions: Take insulin as prescribed. Follow-up with primary care provider next week. Discharge Attestations Time Spent in Discharge Care*: greater than 30 min Quality Metrics Clinical Quality Measures During this hospital stay, did patient experience: None Coding Level of Care Code Acute Ice Seller for Chg Fwd Diagnoses DKA (diabetic ketoacidoses) E10.10 Diabetes mellitus complication detail: without coma Diabetes mellitus type: type 1 ADALID (acute kidney injury) N17.9 Leukocytosis D72.829 Leukocytosis type: unspecified
[2019-08-21 07:38] LABS: Glucose Point of Care 243 mg/dL (70-110)
[2019-08-21] MEDS: cefTRIAXone 1,000 MG in sodium chloride 0.9% (plus) 50 ML 100 MG IV (08:11)
[2019-08-21] MEDS: insulin glargine 100 units/1 mL 25 UNIT SUBCUT (08:12)
[2019-08-21 12:29] LABS: Glucose Point of Care 179 mg/dL (70-110)
--- NOTE | 2019-08-21 13:11 | PC.NURSE ---
pt discharged at 1250. Pt left with parents. Pres[place] delivered [place] [facility] [place]. Belongings sent with pt. disease specific education provided.
== END 2019-08-21 12:50 | disposition home or self-care (01) | DRG 638 ==
LOC: ER 23:27 → ICU 23:27
PROVIDERS: Admitting Provider Internal Medicine; Emergency Provider Family Medicine; Family Provider Family Medicine; PCP Family Medicine; Visit Provider Internal Medicine
DX: E10.10 Type 1 diabetes mellitus with ketoacidosis without coma (principal); N17.9 Acute kidney failure, unspecified; D72.829 Elevated white blood cell count, unspecified; Z91.128 Patient's intentional underdosing of medication regimen for other reason; Z79.4 Long term (current) use of insulin
CPT/HCPCS: 12345; 36415; 36416; 36600; 51702; 71045; 74176; 80048; 80053; 80307; 81001; 81025; 82009; 82803; 82962; 83605; 83690; 85025; 87040; 87804; 96360; 96372; 96374; 99284; J0696; J1815; J2405; J2550; J7030; J7050

== ENCOUNTER 2020-01-30 13:25 | Emergency (ER) | payer OTHER, SELFPAY ==
[2020-01-30 13:33] VITALS: BP 137/95; PULSE 112; RESP 18; TEMP 37; O2SAT 97; BMI 24.7
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
[2020-01-30] MEDS: ondansetron 4 MG Tablet PO (15:56)
[2020-01-30] MEDS: azithromycin 250 mg Tablet 1000 MG PO (16:10)
[2020-01-30] MEDS: tetanus-dipt-pertussis 0.5 mL SDV IM (16:14)
[2020-01-30] MEDS: cefTRIAXone 250 mg SDV IM (16:14)
[2020-01-30 16:21] LABS: Basophils # 0.1 10^3/uL (0.0-0.1); Basophils % 0.3 %; Eosinophils % 0.1 %; Hematocrit 41.1 % (37.0-47.0); Hemoglobin 14.1 g/dL (11.5-15.3); Lymphocytes # 2.2 10^3/uL (0.8-4.8); Lymphocytes % 15.1 %; Mean Corpuscular HGB Conc 34.3 g/dL (30.0-36.0); Mean Corpuscular Hemoglobin 31.4 pg (28.0-34.0); Mean Corpuscular Volume 91.5 fL (81-99); Mean Platelet Volume 11.2 fL (7.4-10.4); Monocytes # 0.9 10^3/uL (0.2-0.9); Monocytes % 6.3 %; Neutrophils # 11.19 10^3/uL (1.8-7.7); Neutrophils % 77.7 %; Nucleated Red Blood Cells % 0 %; Platelet Count 243 10^3/cmm (130-400); Red Blood Count 4.49 10^6/uL (4.1-5.3); Red Cell Distribution Width 11.8 % (12.1-15.1); White Blood Count 14.4 10^3/uL (4.0-10.0)
[2020-01-30 16:37] LABS: Alanine Aminotransferase < 5 U/L (0-33); Albumin Level 4.6 g/dL (3.5-5.2); Alkaline Phosphatase 122 IU/L (35-105); Anion Gap 17.7 (5-19); Aspartate Amino Transferase 27 U/L (0-32); Blood Urea Nitrogen 13 mg/dL (6-20); Calcium 9.9 mg/dL (8.5-10.5); Carbon Dioxide 19 mmol/L (22-29); Chloride 103 mmol/L (98-107); Creatinine Clr Calc Pharmacy 129.7348; Globulin 2.4 g/dL (1.3-4.6); Glomerular Filtration Rate 122.8 mL/min (90-130); Glucose 183 mg/dL (65-115); Osmolality Calculated 283 mOsm/kg (285-295); Potassium 3.7 mmol/L (3.5-5.1); Sodium 136 mmol/L (136-145); Total Bilirubin 0.8 mg/dL (0.15-1.2)
[2020-01-30] MEDS: lidocaine 1% INJ 20 mL IM (16:37)
[2020-01-30] MEDS: emtricitabine/tenofovir 200 mg-300 mg TABLET 1 TAB PO (16:38)
[2020-01-30 16:58] LABS: Hepatitis A Antibody IgM Non-Reactive (Nonreactive); Hepatitis B Core AB, Total Non-Reactive (Nonreactive); Hepatitis B Surface AB 3.5 (0-8.5); Hepatitis B Surface Antigen Non-Reactive (Nonreactive); Hepatitis C Virus Antibody Non-Reactive (Nonreactive)
[2020-01-30 17:18] LABS: HIV 1 & 2 Antibody Non-Reactive (Non-Reactiv); HIV 1 & 2 Antigen Non-Reactive (Non-Reactiv)
[2020-01-30 18:24] VITALS: BP 116/53; PULSE 78; RESP 18; O2SAT 99
== END 2020-01-30 18:33 | disposition home or self-care (01) ==
PROVIDERS: Emergency Provider Nurse Practitioner Family; PCP Family Medicine
DX: T74.21XA Adult sexual abuse, confirmed, initial encounter (principal); E10.9 Type 1 diabetes mellitus without complications; Z79.4 Long term (current) use of insulin; F17.210 Nicotine dependence, cigarettes, uncomplicated; Z23 Encounter for immunization
CPT/HCPCS: 12345; 36415; 80053; 85025; 86705; 86706; 86709; 86803; 87340; 87806; 90471; 90715; 96372; 99281; E0352; J0696; Q0144; Q0162

== ENCOUNTER → 2020-02-11 10:22 | Outpatient (BNVA) | payer OTHER, SELFPAY | PROVIDERS: PCP Family Medicine; Visit Provider Nurse Practitioner Family | DX: Z04.89 Encounter for examination and observation for other specified reasons (principal); Z79.899 Other long term (current) drug therapy; Z13.31 Encounter for screening for depression | CPT/HCPCS: 80053; 80061; 81025; 83036; 84443; 85025; 87491; 87591; 87661 ==

== ENCOUNTER → 2020-02-28 09:20 | Outpatient (BNVA) | payer OTHER, SELFPAY | PROVIDERS: PCP Family Medicine; Visit Provider Nurse Practitioner Family | DX: T74.21XA Adult sexual abuse, confirmed, initial encounter (principal); Y07.50 Unspecified non-family member, perpetrator of maltreatment and neglect | CPT/HCPCS: 80053; 85025 ==

== ENCOUNTER 2020-03-17 10:12 | Outpatient (CLI) | payer OTHER, SELFPAY ==
[2020-03-17 16:15] LABS: HIV 1 & 2 Antibody Non-Reactive (Non-Reactiv); HIV 1 & 2 Antigen Non-Reactive (Non-Reactiv)
== END 2020-03-17 10:13 | disposition home or self-care (01) ==
PROVIDERS: PCP Family Medicine; Visit Provider Nurse Practitioner Family
DX: Z20.2 Contact with and (suspected) exposure to infections with a predominantly sexual mode of transmission (principal)
CPT/HCPCS: 36415; 87806

== ENCOUNTER → 2020-04-26 15:20 | Outpatient (BNVA) | payer SELFPAY | PROVIDERS: PCP Internal Medicine; Visit Provider Nurse Practitioner Family | DX: Z20.2 Contact with and (suspected) exposure to infections with a predominantly sexual mode of transmission (principal) | CPT/HCPCS: 86705; 86706; 86709; 86803; 87340; 87806 ==

== ENCOUNTER 2020-04-28 13:31 | Inpatient (IN) | payer OTHER, SELFPAY ==
[2020-04-28 14:07] VITALS: BP 121/79; PULSE 113; RESP 16; TEMP 36.7; O2SAT 99; BMI 23.9
--- NOTE | 2020-04-28 14:56 | XR_ITS ---
WS: [id number] Portable AP upright chest, 04/28/2020 Clinical Data: syncope Comparison: Chest, 08/19/2019. Findings: No nodules, masses or effusions are seen. The heart is normal. The pulmonary vascularity is not increased. No pneumonia or pneumothorax is seen. XR/XR chest 1V portable [id number] Impression: Negative chest.
[2020-04-28 16:42] LABS: Basophils # 0.1 10^3/uL (0.0-0.1); Basophils % 0.2 %; Eosinophils % 0.1 %; Hematocrit 51.2 % (37.0-47.0); Hemoglobin 16.5 g/dL (11.5-15.3); Lymphocytes # 1.4 10^3/uL (0.8-4.8); Lymphocytes % 5.6 %; Mean Corpuscular HGB Conc 32.2 g/dL (30.0-36.0); Mean Corpuscular Hemoglobin 31.1 pg (28.0-34.0); Mean Corpuscular Volume 96.6 fL (81-99); Mean Platelet Volume 11.3 fL (7.4-10.4); Monocytes # 0.8 10^3/uL (0.2-0.9); Monocytes % 3.1 %; Neutrophils # 21.47 10^3/uL (1.8-7.7); Neutrophils % 86.4 %; Nucleated Red Blood Cells % 0 %; Platelet Count 406 10^3/cmm (130-400); Red Cell Distribution Width 11.5 % (12.1-15.1); White Blood Count 24.9 10^3/uL (4.0-10.0)
[2020-04-28 16:43] LABS: Glucose Point of Care 494 mg/dL (70-110)
[2020-04-28 16:58] LABS: D Dimer <= 0.27 ug/mIFEU (0-0.59)
[2020-04-28 17:03] LABS: Lactate (Lactic Acid level) 2.1 mmol/L (0.5-2.2)
[2020-04-28 17:04] LABS: Ketone (Acetest) Serum Positive (Negative)
[2020-04-28 17:04] LABS: Arterial Blood Gas Hematocrit 51.5 % (37-47); Blood Gas Allen Test Pos; Blood Gas Operator Identificat MONRO; Blood Gas Sample Site Brachial, left; Blood Gas Sample Type Arterial; Carboxyhemoglobin 0.9 %THgb (0.4-20.1); HCO3 ABG 3.3 mmol/L (22-26); HGB O2 Sat 96.8 % (95-100); Ionized Calcium Level - ABG 1.3 mmol/L (1.1-1.4); Methemoglobin 0.9 % (0.4-1.5); Oxygen Device ROOM AIR; Oxygen Saturation ABG 98.5; Potassium Level - ABG 5.6 mmol/L (3.5-5.0); Total Hemoglobin 16.8 g/dL (12-16)
[2020-04-28 17:05] LABS: ABG PCO2 11.9 mmHg (35-45); ABG PH Result 7.05 (7.35-7.45)
[2020-04-28 17:07] LABS: C Reactive Protein 16.9 mg/L (0.0-4.9); Lactate Dehydrogenase 201 U/L (135-214)
[2020-04-28 17:11] LABS: Fibrinogen 590 mg/dL (174-498)
[2020-04-28 17:12] LABS: Slide Review Slide Review Perform
[2020-04-28 17:16] LABS: Procalcitonin 0.12 ng/mL (0-0.5)
--- NOTE | 2020-04-28 17:23 | ED_ITS ---
Documented by User: Vito Vaughan DO 05/01/20 13:59 HPI - General Adult General: Chief complaint: General Medical Stated complaint: COVID SYMPTOMS Time Seen by Provider: 04/28/20 16:37 History of Present Illness: HPI narrative: 24-year-old female is a known insulin-dependent diabetic. She is lethargic and poorly responsive. Clinically she has Kussmaul breathing and appears to be in severe DKA. She has had cough and some shortness of breath along with sore throat and severe diarrhea for the last week. She denies any medication melena hematemesis or coffee-ground emesis Onset (ago): day(s) (-) Location: chest Severity: moderate Quality: aching Pain Consistency: constant Relieving factors: none Exacerbating factors: none Associated symptoms: Reports confusion, cough, diaphoresis, decreased appetite, dyspnea, fevers/chills, headache(s), malaise, nausea, palpitations, short of breath, vomiting and weakness; Deny rash, seizures or syncope Treatments prior to arrival: none Review of Systems Const: Reports: malaise and diaphoresis ENMT: Reports: throat pain, nasal discharge and nasal congestion; Denies: ear or mastoid pain Card: Reports: palpitations; Denies: syncope Resp: Reports: dyspnea and productive cough GI: Reports: nausea and vomiting : Denies: flank pain, difficulty voiding, dysuria, urinary frequency or urinary urgency Skin/Breast: Denies: rash Neuro: Reports: headache(s) and confusion PFSH ED PFSH: Medical History Depression Type 1 diabetes Surgical History Previous section Family History Denies family history of CAD (coronary artery disease) Bleeding disorder Cancer Social History Smoking and tobacco status: current every day smoker cigarettes Packs smoked per day: 0.5 Alcohol intake: current Alcohol intake frequency: few times a month Substance/Drug Use: never Caregiver/support person: Yes Housing: House Marital status: Legally Female Reproductive History: Date of last menstrual period: 04/27/20 Physical Exam Const: ORIENTATION/CONSCIOUSNESS: Yes oriented to person, Yes oriented to place and Yes oriented to time HENMT: COMMON NORMALS: normocephalic, atraumatic and hearing grossly normal bilaterally HEAD & SCALP: normocephalic and atraumatic Neck/C-Spine: COMMON NORMALS: no JVD Resp: COMMON NORMALS: normal respiratory effort, No retractions, No use of accessory muscles and clear to auscultation bilaterally AUSCULTATION: clear to auscultation bilaterally Cardio: COMMON NORMALS: no JVD, regular rhythm and No murmurs present (Cardio) RATE: tachycardic RHYTHM: regular rhythm GI: COMMON NORMALS: Soft to palpation and No hepatosplenomegaly present AUSCULTATION: Yes normoactive bowel sounds PALPATION: Yes Soft to palpation, No Tenderness to palpation present (GI), No Guarding due to palpation present (GI) and Yes No hepatosplenomegaly present Extremity: COMMON NORMALS: normal to inspection, capillary refill normal, no clubbing, cyanosis or edema, no calf tenderness and no pedal edema Neuro: SENSORIUM/ORIENTATION: Yes oriented to person, Yes oriented to place and Yes oriented to time Skin: COMMON NORMALS: no rashes or lesions noted GENERAL SKIN EXAM: no rashes or lesions noted Course Vital Signs: Vital signs: Vital Signs Temperature 98.7 F 05/01/20 11:53 Pulse Rate 87 05/01/20 11:53 Respiratory Rate 16 05/01/20 11:53 Blood Pressure 127/85 05/01/20 11:53 Pulse Oximetry 99 05/01/20 11:53 MDM - General Adult MDM Narrative: Medical decision making narrative: Patient in DKA discussed with Dr. Kwon and will admit to ICU she is a person under investigation strongly suspicious that she has Covid Lab Data: Labs: Lab Results 04/28/20 04/28/20 04/28/20 Range/Units 16:35 16:35 16:35 WBC 24.9 H (4.0-10.0) 10^3/ uL RBC 5.30 (4.1-5.3) 10^6/u L Hgb 16.5 H (11.5-15.3) g/dL Hct 51.2 H (37.0-47.0) % MCV 96.6 (81-99) fL MCH 31.1 (28.0-34.0) pg MCHC 32.2 (30.0-36.0) g/dL RDW 11.5 L (12.1-15.1) % Plt Count 406 H (130-400) 10^3/c mm MPV 11.3 H (7.4-10.4) fL Neut % (Auto) 86.4 % Lymph % (Auto) 5.6 % [place] % (Auto) 3.1 % Eos % (Auto) 0.1 % Baso % (Auto) 0.2 % Neut # (Auto) 21.47 H (1.8-7.7) 10^3/u L Lymph # (Auto) 1.4 (0.8-4.8) 10^3/u L [place] # (Auto) 0.8 (0.2-0.9) 10^3/u L Eos # (Auto) 0.0 (0.0-0.8) 10^3/u L Baso # (Auto) 0.1 (0.0-0.1) 10^3/u L Nucleated RBC % (a uto) 0 % Nucleated RBCs # 0.0 /100WBC Fibrinogen (174-498) mg/dL D-Dimer <= 0.27 (0-0.59) ug/mIFE U Specimen Type Sample Site ABG pH (7.35-7.45) ABG pCO2 (35-45) mmHg ABG pO2 (80.0-100.0) mmH g ABG HCO3 (22-26) mmol/L ABG O2 Saturation ABG Base Excess (-2.0-2.0) mmol/ L Jasen Test A-a O2 Gradient Hematocrit (37-47) % Hgb O2 Saturation (95-100) % Carboxyhemoglobin (0.4-20.1) %THgb Methemoglobin (0.4-1.5) % Total Hemoglobin (12-16) g/dL Ionized Calcium (1.1-1.4) mmol/L O2 Delivery Device FiO2 % Suction Roller ID Sodium 131 L (136-145) mmol/L Potassium 5.6 H (3.5-5.1) mmol/L Chloride 94 L (98-107) mmol/L Carbon Dioxide 6 L* (22-29) mmol/L Anion Gap 36.6 H (5-19) BUN 22 H (6-20) mg/dL Creatinine 1.1 H (0.5-0.9) mg/dL GFR Calculation 61.0 L (90-130) mL/min Glucose 534 H* (65-115) mg/dL POC Glucose (70-110) mg/dL Calculated Osmolal ity 300 H (285-295) mOsm/k g Lactate (0.5-2.2) mmol/L Calcium 9.9 (8.5-10.5) mg/dL Ferritin 236 H (15-150) ng/mL Total Bilirubin 0.3 (0.15-1.2) mg/dL AST 15 (0-32) U/L ALT 13 (0-33) U/L Alkaline Phosphata se 177 H (35-105) IU/L Lactate Dehydrogen ase (135-214) U/L C-Reactive Protein (0.0-4.9) mg/L Total Protein 7.9 (6.6-8.7) g/dL Albumin 4.7 (3.5-5.2) g/dL Globulin 3.2 (1.3-4.6) g/dL Procalcitonin 0.12 (0-0.5) ng/mL Urine Color (Yellow) Urine Appearance (CLEAR) Urine pH (5-7) Ur Specific Gravit y (1.005-1.030) Urine Protein (Negative) Urine Glucose (UA) (Normal) Urine Ketones (Negative) Urine Blood (Negative) Urine Nitrate (Negative) Urine Bilirubin (Negative) Urine Urobilinogen (Negative) mg/dL Ur Leukocyte Yamile ase (Negative) Urine RBC (0-2) /hpf Urine WBC (0-5) /hpf Ur Squamous Epith Cells (0-5) /hpf Amorphous Sediment Urine Bacteria (NONE) /hpf Urine Mucus /hpf Serum Ketones Positive H (Negative) SARS-CoV-2 Ag (Rap id) (Negative) 04/28/20 04/28/20 04/28/20 Range/Units 16:35 16:35 16:35 WBC (4.0-10.0) 10^3/ uL RBC (4.1-5.3) 10^6/u L Hgb (11.5-15.3) g/dL Hct (37.0-47.0) % MCV (81-99) fL MCH (28.0-34.0) pg MCHC (30.0-36.0) g/dL RDW (12.1-15.1) % Plt Count (130-400) 10^3/c mm MPV (7.4-10.4) fL Neut % (Auto) % Lymph % (Auto) % [place] % (Auto) % Eos % (Auto) % Baso % (Auto) % Neut # (Auto) (1.8-7.7) 10^3/u L Lymph # (Auto) (0.8-4.8) 10^3/u L [place] # (Auto) (0.2-0.9) 10^3/u L Eos # (Auto) (0.0-0.8) 10^3/u L Baso # (Auto) (0.0-0.1) 10^3/u L Nucleated RBC % (a uto) % Nucleated RBCs # /100WBC Fibrinogen 590 H (174-498) mg/dL D-Dimer (0-0.59) ug/mIFE U Specimen Type Sample Site ABG pH (7.35-7.45) ABG pCO2 (35-45) mmHg ABG pO2 (80.0-100.0) mmH g ABG HCO3 (22-26) mmol/L ABG O2 Saturation ABG Base Excess (-2.0-2.0) mmol/ L Jasen Test A-a O2 Gradient Hematocrit (37-47) % Hgb O2 Saturation (95-100) % Carboxyhemoglobin (0.4-20.1) %THgb Methemoglobin (0.4-1.5) % Total Hemoglobin (12-16) g/dL Ionized Calcium (1.1-1.4) mmol/L O2 Delivery Device FiO2 % Suction Roller ID Sodium (136-145) mmol/L Potassium (3.5-5.1) mmol/L Chloride (98-107) mmol/L Carbon Dioxide (22-29) mmol/L Anion Gap (5-19) BUN (6-20) mg/dL Creatinine (0.5-0.9) mg/dL GFR Calculation (90-130) mL/min Glucose (65-115) mg/dL POC Glucose (70-110) mg/dL Calculated Osmolal ity (285-295) mOsm/k g Lactate 2.1 (0.5-2.2) mmol/L Calcium (8.5-10.5) mg/dL Ferritin (15-150) ng/mL Total Bilirubin (0.15-1.2) mg/dL AST (0-32) U/L ALT (0-33) U/L Alkaline Phosphata se (35-105) IU/L Lactate Dehydrogen ase 201 (135-214) U/L C-Reactive Protein 16.9 H (0.0-4.9) mg/L Total Protein (6.6-8.7) g/dL Albumin (3.5-5.2) g/dL Globulin (1.3-4.6) g/dL Procalcitonin (0-0.5) ng/mL Urine Color (Yellow) Urine Appearance (CLEAR) Urine pH (5-7) Ur Specific Gravit y (1.005-1.030) Urine Protein (Negative) Urine Glucose (UA) (Normal) Urine Ketones (Negative) Urine Blood (Negative) Urine Nitrate (Negative) Urine Bilirubin (Negative) Urine Urobilinogen (Negative) mg/dL Ur Leukocyte Yamile ase (Negative) Urine RBC (0-2) /hpf Urine WBC (0-5) /hpf Ur Squamous Epith Cells (0-5) /hpf Amorphous Sediment Urine Bacteria (NONE) /hpf Urine Mucus /hpf Serum Ketones (Negative) SARS-CoV-2 Ag (Rap id) (Negative) 04/28/20 04/28/20 04/28/20 Range/Units 16:40 16:47 17:08 WBC (4.0-10.0) 10^3/ uL RBC (4.1-5.3) 10^6/u L Hgb (11.5-15.3) g/dL Hct (37.0-47.0) % MCV (81-99) fL MCH (28.0-34.0) pg MCHC (30.0-36.0) g/dL RDW (12.1-15.1) % Plt Count (130-400) 10^3/c mm MPV (7.4-10.4) fL Neut % (Auto) % Lymph % (Auto) % [place] % (Auto) % Eos % (Auto) % Baso % (Auto) % Neut # (Auto) (1.8-7.7) 10^3/u L Lymph # (Auto) (0.8-4.8) 10^3/u L [place] # (Auto) (0.2-0.9) 10^3/u L Eos # (Auto) (0.0-0.8) 10^3/u L Baso # (Auto) (0.0-0.1) 10^3/u L Nucleated RBC % (a uto) % Nucleated RBCs # /100WBC Fibrinogen (174-498) mg/dL D-Dimer (0-0.59) ug/mIFE U Specimen Type Arterial Sample Site Brachial, left ABG pH 7.05 L* (7.35-7.45) ABG pCO2 11.9 L* (35-45) mmHg ABG pO2 132.0 H (80.0-100.0) mmH g ABG HCO3 3.3 L (22-26) mmol/L ABG O2 Saturation 98.5 ABG Base Excess -25.0 L (-2.0-2.0) mmol/ L Jasen Test Pos A-a O2 Gradient Not Reportable Hematocrit 51.5 H (37-47) % Hgb O2 Saturation 96.8 (95-100) % Carboxyhemoglobin 0.9 (0.4-20.1) %THgb Methemoglobin 0.9 (0.4-1.5) % Total Hemoglobin 16.8 H (12-16) g/dL Ionized Calcium 1.3 (1.1-1.4) mmol/L O2 Delivery Device Room air FiO2 21.0 % Suction Roller ID [place] Sodium 132.0 (136-145) mmol/L Potassium 5.6 H (3.5-5.1) mmol/L Chloride (98-107) mmol/L Carbon Dioxide (22-29) mmol/L Anion Gap (5-19) BUN (6-20) mg/dL Creatinine (0.5-0.9) mg/dL GFR Calculation (90-130) mL/min Glucose 515.0 H (65-115) mg/dL POC Glucose 494 (70-110) mg/dL Calculated Osmolal ity (285-295) mOsm/k g Lactate (0.5-2.2) mmol/L Calcium (8.5-10.5) mg/dL Ferritin (15-150) ng/mL Total Bilirubin (0.15-1.2) mg/dL AST (0-32) U/L ALT (0-33) U/L Alkaline Phosphata se (35-105) IU/L Lactate Dehydrogen ase (135-214) U/L C-Reactive Protein (0.0-4.9) mg/L Total Protein (6.6-8.7) g/dL Albumin (3.5-5.2) g/dL Globulin (1.3-4.6) g/dL Procalcitonin (0-0.5) ng/mL Urine Color Yellow (Yellow) Urine Appearance Clear (CLEAR) Urine pH 5 (5-7) Ur Specific Gravit y 1.020 (1.005-1.030) Urine Protein 1+ H (Negative) Urine Glucose (UA) 4+ H (Normal) Urine Ketones 3+ H (Negative) Urine Blood Neg (Negative) Urine Nitrate Negative (Negative) Urine Bilirubin Neg (Negative) Urine Urobilinogen Norm (Negative) mg/dL Ur Leukocyte Yamile ase Negative (Negative) Urine RBC None (0-2) /hpf Urine WBC None (0-5) /hpf Ur Squamous Epith Cells 0-4 H (0-5) /hpf Amorphous Sediment Not Reportable Urine Bacteria Trace (NONE) /hpf Urine Mucus Trace /hpf Serum Ketones (Negative) SARS-CoV-2 Ag (Rap id) (Negative) 04/28/20 04/28/20 Range/Units 17:45 18:01 WBC (4.0-10.0) 10^3/ uL RBC (4.1-5.3) 10^6/u L Hgb (11.5-15.3) g/dL Hct (37.0-47.0) % MCV (81-99) fL MCH (28.0-34.0) pg MCHC (30.0-36.0) g/dL RDW (12.1-15.1) % Plt Count (130-400) 10^3/c mm MPV (7.4-10.4) fL Neut % (Auto) % Lymph % (Auto) % [place] % (Auto) % Eos % (Auto) % Baso % (Auto) % Neut # (Auto) (1.8-7.7) 10^3/u L Lymph # (Auto) (0.8-4.8) 10^3/u L [place] # (Auto) (0.2-0.9) 10^3/u L Eos # (Auto) (0.0-0.8) 10^3/u L Baso # (Auto) (0.0-0.1) 10^3/u L Nucleated RBC % (a uto) % Nucleated RBCs # /100WBC Fibrinogen (174-498) mg/dL D-Dimer (0-0.59) ug/mIFE U Specimen Type Sample Site ABG pH (7.35-7.45) ABG pCO2 (35-45) mmHg ABG pO2 (80.0-100.0) mmH g ABG HCO3 (22-26) mmol/L ABG O2 Saturation ABG Base Excess (-2.0-2.0) mmol/ L Jasen Test A-a O2 Gradient Hematocrit (37-47) % Hgb O2 Saturation (95-100) % Carboxyhemoglobin (0.4-20.1) %THgb Methemoglobin (0.4-1.5) % Total Hemoglobin (12-16) g/dL Ionized Calcium (1.1-1.4) mmol/L O2 Delivery Device FiO2 % Suction Roller ID Sodium (136-145) mmol/L Potassium (3.5-5.1) mmol/L Chloride (98-107) mmol/L Carbon Dioxide (22-29) mmol/L Anion Gap (5-19) BUN (6-20) mg/dL Creatinine (0.5-0.9) mg/dL GFR Calculation (90-130) mL/min Glucose (65-115) mg/dL POC Glucose 430 (70-110) mg/dL Calculated Osmolal ity (285-295) mOsm/k g Lactate (0.5-2.2) mmol/L Calcium (8.5-10.5) mg/dL Ferritin (15-150) ng/mL Total Bilirubin (0.15-1.2) mg/dL AST (0-32) U/L ALT (0-33) U/L Alkaline Phosphata se (35-105) IU/L Lactate Dehydrogen ase (135-214) U/L C-Reactive Protein (0.0-4.9) mg/L Total Protein (6.6-8.7) g/dL Albumin (3.5-5.2) g/dL Globulin (1.3-4.6) g/dL Procalcitonin (0-0.5) ng/mL Urine Color (Yellow) Urine Appearance (CLEAR) Urine pH (5-7) Ur Specific Gravit y (1.005-1.030) Urine Protein (Negative) Urine Glucose (UA) (Normal) Urine Ketones (Negative) Urine Blood (Negative) Urine Nitrate (Negative) Urine Bilirubin (Negative) Urine Urobilinogen (Negative) mg/dL Ur Leukocyte Yamile ase (Negative) Urine RBC (0-2) /hpf Urine WBC (0-5) /hpf Ur Squamous Epith Cells (0-5) /hpf Amorphous Sediment Urine Bacteria (NONE) /hpf Urine Mucus /hpf Serum Ketones (Negative) SARS-CoV-2 Ag (Rap id) Negative (Negative) Discharge Plan Discharge Admit Provider: Luis Angel Aquino Clinical Impression: Diabetic ketoacidosis, Acute kidney injury, Type 1 diabetes, Exposure to COVID- 19 virus, Diarrhea Condition: Stable Interventions: ED Discharge Assessment Last Done: 04/28/20 19:51 ED Charges Last Done: 04/28/20 19:51 Discharge Date/Time: 04/28/20 19:05 Sign Out Sign Out Data: Patient Sign Out occurred on 04/28/20 at 18:30. Patient's care was discussed, and care was transferred from to Tiffanie Tucker. 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 Documented by User: Tiffanie Tucker 04/29/20 06:10 HPI - General Adult General: Chief complaint: General Medical Stated complaint: COVID SYMPTOMS Time Seen by Provider: 04/28/20 16:37 PFSH ED PFSH: Medical History Depression Type 1 diabetes Surgical History Previous section Family History Denies family history of CAD (coronary artery disease) Bleeding disorder Cancer Social History Smoking and tobacco status: current every day smoker cigarettes Packs smoked per day: 0.5 Alcohol intake: current Alcohol intake frequency: few times a month Substance/Drug Use: never Caregiver/support person: Yes Housing: House Marital status: Legally Course Vital Signs: Vital signs: Vital Signs Temperature 98.7 F 05/01/20 11:53 Pulse Rate 87 05/01/20 11:53 Respiratory Rate 16 05/01/20 11:53 Blood Pressure 127/85 05/01/20 11:53 Pulse Oximetry 99 05/01/20 11:53 MDM - General Adult Lab Data: Labs: Lab Results 04/28/20 04/28/20 04/28/20 Range/Units 16:35 16:35 16:35 WBC 24.9 H (4.0-10.0) 10^3/ uL RBC 5.30 (4.1-5.3) 10^6/u L Hgb 16.5 H (11.5-15.3) g/dL Hct 51.2 H (37.0-47.0) % MCV 96.6 (81-99) fL MCH 31.1 (28.0-34.0) pg MCHC 32.2 (30.0-36.0) g/dL RDW 11.5 L (12.1-15.1) % Plt Count 406 H (130-400) 10^3/c mm MPV 11.3 H (7.4-10.4) fL Neut % (Auto) 86.4 % Lymph % (Auto) 5.6 % [place] % (Auto) 3.1 % Eos % (Auto) 0.1 % Baso % (Auto) 0.2 % Neut # (Auto) 21.47 H (1.8-7.7) 10^3/u L Lymph # (Auto) 1.4 (0.8-4.8) 10^3/u L [place] # (Auto) 0.8 (0.2-0.9) 10^3/u L Eos # (Auto) 0.0 (0.0-0.8) 10^3/u L Baso # (Auto) 0.1 (0.0-0.1) 10^3/u L Nucleated RBC % (a uto) 0 % Nucleated RBCs # 0.0 /100WBC Fibrinogen (174-498) mg/dL D-Dimer <= 0.27 (0-0.59) ug/mIFE U Specimen Type Sample Site ABG pH (7.35-7.45) ABG pCO2 (35-45) mmHg ABG pO2 (80.0-100.0) mmH g ABG HCO3 (22-26) mmol/L ABG O2 Saturation ABG Base Excess (-2.0-2.0) mmol/ L Jasen Test A-a O2 Gradient Hematocrit (37-47) % Hgb O2 Saturation (95-100) % Carboxyhemoglobin (0.4-20.1) %THgb Methemoglobin (0.4-1.5) % Total Hemoglobin (12-16) g/dL Ionized Calcium (1.1-1.4) mmol/L O2 Delivery Device FiO2 % Suction Roller ID Sodium 131 L (136-145) mmol/L Potassium 5.6 H (3.5-5.1) mmol/L Chloride 94 L (98-107) mmol/L Carbon Dioxide 6 L* (22-29) mmol/L Anion Gap 36.6 H (5-19) BUN 22 H (6-20) mg/dL Creatinine 1.1 H (0.5-0.9) mg/dL GFR Calculation 61.0 L (90-130) mL/min Glucose 534 H* (65-115) mg/dL POC Glucose (70-110) mg/dL Calculated Osmolal ity 300 H (285-295) mOsm/k g Lactate (0.5-2.2) mmol/L Calcium 9.9 (8.5-10.5) mg/dL Ferritin 236 H (15-150) ng/mL Total Bilirubin 0.3 (0.15-1.2) mg/dL AST 15 (0-32) U/L ALT 13 (0-33) U/L Alkaline Phosphata se 177 H (35-105) IU/L Lactate Dehydrogen ase (135-214) U/L C-Reactive Protein (0.0-4.9) mg/L Total Protein 7.9 (6.6-8.7) g/dL Albumin 4.7 (3.5-5.2) g/dL Globulin 3.2 (1.3-4.6) g/dL Procalcitonin 0.12 (0-0.5) ng/mL Urine Color (Yellow) Urine Appearance (CLEAR) Urine pH (5-7) Ur Specific Gravit y (1.005-1.030) Urine Protein (Negative) Urine Glucose (UA) (Normal) Urine Ketones (Negative) Urine Blood (Negative) Urine Nitrate (Negative) Urine Bilirubin (Negative) Urine Urobilinogen (Negative) mg/dL Ur Leukocyte Yamile ase (Negative) Urine RBC (0-2) /hpf Urine WBC (0-5) /hpf Ur Squamous Epith Cells (0-5) /hpf Amorphous Sediment Urine Bacteria (NONE) /hpf Urine Mucus /hpf Serum Ketones Positive H (Negative) SARS-CoV-2 Ag (Rap id) (Negative) 04/28/20 04/28/20 04/28/20 Range/Units 16:35 16:35 16:35 WBC (4.0-10.0) 10^3/ uL RBC (4.1-5.3) 10^6/u L Hgb (11.5-15.3) g/dL Hct (37.0-47.0) % MCV (81-99) fL MCH (28.0-34.0) pg MCHC (30.0-36.0) g/dL RDW (12.1-15.1) % Plt Count (130-400) 10^3/c mm MPV (7.4-10.4) fL Neut % (Auto) % Lymph % (Auto) % [place] % (Auto) % Eos % (Auto) % Baso % (Auto) % Neut # (Auto) (1.8-7.7) 10^3/u L Lymph # (Auto) (0.8-4.8) 10^3/u L [place] # (Auto) (0.2-0.9) 10^3/u L Eos # (Auto) (0.0-0.8) 10^3/u L Baso # (Auto) (0.0-0.1) 10^3/u L Nucleated RBC % (a uto) % Nucleated RBCs # /100WBC Fibrinogen 590 H (174-498) mg/dL D-Dimer (0-0.59) ug/mIFE U Specimen Type Sample Site ABG pH (7.35-7.45) ABG pCO2 (35-45) mmHg ABG pO2 (80.0-100.0) mmH g ABG HCO3 (22-26) mmol/L ABG O2 Saturation ABG Base Excess (-2.0-2.0) mmol/ L Jasen Test A-a O2 Gradient Hematocrit (37-47) % Hgb O2 Saturation (95-100) % Carboxyhemoglobin (0.4-20.1) %THgb Methemoglobin (0.4-1.5) % Total Hemoglobin (12-16) g/dL Ionized Calcium (1.1-1.4) mmol/L O2 Delivery Device FiO2 % Suction Roller ID Sodium (136-145) mmol/L Potassium (3.5-5.1) mmol/L Chloride (98-107) mmol/L Carbon Dioxide (22-29) mmol/L Anion Gap (5-19) BUN (6-20) mg/dL Creatinine (0.5-0.9) mg/dL GFR Calculation (90-130) mL/min Glucose (65-115) mg/dL POC Glucose (70-110) mg/dL Calculated Osmolal ity (285-295) mOsm/k g Lactate 2.1 (0.5-2.2) mmol/L Calcium (8.5-10.5) mg/dL Ferritin (15-150) ng/mL Total Bilirubin (0.15-1.2) mg/dL AST (0-32) U/L ALT (0-33) U/L Alkaline Phosphata se (35-105) IU/L Lactate Dehydrogen ase 201 (135-214) U/L C-Reactive Protein 16.9 H (0.0-4.9) mg/L Total Protein (6.6-8.7) g/dL Albumin (3.5-5.2) g/dL Globulin (1.3-4.6) g/dL Procalcitonin (0-0.5) ng/mL Urine Color (Yellow) Urine Appearance (CLEAR) Urine pH (5-7) Ur Specific Gravit y (1.005-1.030) Urine Protein (Negative) Urine Glucose (UA) (Normal) Urine Ketones (Negative) Urine Blood (Negative) Urine Nitrate (Negative) Urine Bilirubin (Negative) Urine Urobilinogen (Negative) mg/dL Ur Leukocyte Yamile ase (Negative) Urine RBC (0-2) /hpf Urine WBC (0-5) /hpf Ur Squamous Epith Cells (0-5) /hpf Amorphous Sediment Urine Bacteria (NONE) /hpf Urine Mucus /hpf Serum Ketones (Negative) SARS-CoV-2 Ag (Rap id) (Negative) 04/28/20 04/28/20 04/28/20 Range/Units 16:40 16:47 17:08 WBC (4.0-10.0) 10^3/ uL RBC (4.1-5.3) 10^6/u L Hgb (11.5-15.3) g/dL Hct (37.0-47.0) % MCV (81-99) fL MCH (28.0-34.0) pg MCHC (30.0-36.0) g/dL RDW (12.1-15.1) % Plt Count (130-400) 10^3/c mm MPV (7.4-10.4) fL Neut % (Auto) % Lymph % (Auto) % [place] % (Auto) % Eos % (Auto) % Baso % (Auto) % Neut # (Auto) (1.8-7.7) 10^3/u L Lymph # (Auto) (0.8-4.8) 10^3/u L [place] # (Auto) (0.2-0.9) 10^3/u L Eos # (Auto) (0.0-0.8) 10^3/u L Baso # (Auto) (0.0-0.1) 10^3/u L Nucleated RBC % (a uto) % Nucleated RBCs # /100WBC Fibrinogen (174-498) mg/dL D-Dimer (0-0.59) ug/mIFE U Specimen Type Arterial Sample Site Brachial, left ABG pH 7.05 L* (7.35-7.45) ABG pCO2 11.9 L* (35-45) mmHg ABG pO2 132.0 H (80.0-100.0) mmH g ABG HCO3 3.3 L (22-26) mmol/L ABG O2 Saturation 98.5 ABG Base Excess -25.0 L (-2.0-2.0) mmol/ L Jasen Test Pos A-a O2 Gradient Not Reportable Hematocrit 51.5 H (37-47) % Hgb O2 Saturation 96.8 (95-100) % Carboxyhemoglobin 0.9 (0.4-20.1) %THgb Methemoglobin 0.9 (0.4-1.5) % Total Hemoglobin 16.8 H (12-16) g/dL Ionized Calcium 1.3 (1.1-1.4) mmol/L O2 Delivery Device Room air FiO2 21.0 % Suction Roller ID [place] Sodium 132.0 (136-145) mmol/L Potassium 5.6 H (3.5-5.1) mmol/L Chloride (98-107) mmol/L Carbon Dioxide (22-29) mmol/L Anion Gap (5-19) BUN (6-20) mg/dL Creatinine (0.5-0.9) mg/dL GFR Calculation (90-130) mL/min Glucose 515.0 H (65-115) mg/dL POC Glucose 494 (70-110) mg/dL Calculated Osmolal ity (285-295) mOsm/k g Lactate (0.5-2.2) mmol/L Calcium (8.5-10.5) mg/dL Ferritin (15-150) ng/mL Total Bilirubin (0.15-1.2) mg/dL AST (0-32) U/L ALT (0-33) U/L Alkaline Phosphata se (35-105) IU/L Lactate Dehydrogen ase (135-214) U/L C-Reactive Protein (0.0-4.9) mg/L Total Protein (6.6-8.7) g/dL Albumin (3.5-5.2) g/dL Globulin (1.3-4.6) g/dL Procalcitonin (0-0.5) ng/mL Urine Color Yellow (Yellow) Urine Appearance Clear (CLEAR) Urine pH 5 (5-7) Ur Specific Gravit y 1.020 (1.005-1.030) Urine Protein 1+ H (Negative) Urine Glucose (UA) 4+ H (Normal) Urine Ketones 3+ H (Negative) Urine Blood Neg (Negative) Urine Nitrate Negative (Negative) Urine Bilirubin Neg (Negative) Urine Urobilinogen Norm (Negative) mg/dL Ur Leukocyte [place] ase Negative (Negative) Urine RBC None (0-2) /hpf Urine WBC None (0-5) /hpf Ur Squamous Epith Cells 0-4 H (0-5) /hpf Amorphous Sediment Not Reportable Urine Bacteria Trace (NONE) /hpf Urine Mucus Trace /hpf Serum Ketones (Negative) SARS-CoV-2 Ag (Rap id) (Negative) 04/28/20 04/28/20 Range/Units 17:45 18:01 WBC (4.0-10.0) 10^3/ uL RBC (4.1-5.3) 10^6/u L Hgb (11.5-15.3) g/dL Hct (37.0-47.0) % MCV (81-99) fL MCH (28.0-34.0) pg MCHC (30.0-36.0) g/dL RDW (12.1-15.1) % Plt Count (130-400) 10^3/c mm MPV (7.4-10.4) fL Neut % (Auto) % Lymph % (Auto) % [place] % (Auto) % Eos % (Auto) % Baso % (Auto) % Neut # (Auto) (1.8-7.7) 10^3/u L Lymph # (Auto) (0.8-4.8) 10^3/u L [place] # (Auto) (0.2-0.9) 10^3/u L Eos # (Auto) (0.0-0.8) 10^3/u L Baso # (Auto) (0.0-0.1) 10^3/u L Nucleated RBC % (a uto) % Nucleated RBCs # /100WBC Fibrinogen (174-498) mg/dL D-Dimer (0-0.59) ug/mIFE U Specimen Type Sample Site ABG pH (7.35-7.45) ABG pCO2 (35-45) mmHg ABG pO2 (80.0-100.0) mmH g ABG HCO3 (22-26) mmol/L ABG O2 Saturation ABG Base Excess (-2.0-2.0) mmol/ L Jasen Test A-a O2 Gradient Hematocrit (37-47) % Hgb O2 Saturation (95-100) % Carboxyhemoglobin (0.4-20.1) %THgb Methemoglobin (0.4-1.5) % Total Hemoglobin (12-16) g/dL Ionized Calcium (1.1-1.4) mmol/L O2 Delivery Device FiO2 % Suction Roller ID Sodium (136-145) mmol/L Potassium (3.5-5.1) mmol/L Chloride (98-107) mmol/L Carbon Dioxide (22-29) mmol/L Anion Gap (5-19) BUN (6-20) mg/dL Creatinine (0.5-0.9) mg/dL GFR Calculation (90-130) mL/min Glucose (65-115) mg/dL POC Glucose 430 (70-110) mg/dL Calculated Osmolal ity (285-295) mOsm/k g Lactate (0.5-2.2) mmol/L Calcium (8.5-10.5) mg/dL Ferritin (15-150) ng/mL Total Bilirubin (0.15-1.2) mg/dL AST (0-32) U/L ALT (0-33) U/L Alkaline Phosphata se (35-105) IU/L Lactate Dehydrogen ase (135-214) U/L C-Reactive Protein (0.0-4.9) mg/L Total Protein (6.6-8.7) g/dL Albumin (3.5-5.2) g/dL Globulin (1.3-4.6) g/dL Procalcitonin (0-0.5) ng/mL Urine Color (Yellow) Urine Appearance (CLEAR) Urine pH (5-7) Ur Specific Gravit y (1.005-1.030) Urine Protein (Negative) Urine Glucose (UA) (Normal) Urine Ketones (Negative) Urine Blood (Negative) Urine Nitrate (Negative) Urine Bilirubin (Negative) Urine Urobilinogen (Negative) mg/dL Ur Leukocyte [place] ase (Negative) Urine RBC (0-2) /hpf Urine WBC (0-5) /hpf Ur Squamous Epith Cells (0-5) /hpf Amorphous Sediment Urine Bacteria (NONE) /hpf Urine Mucus /hpf Serum Ketones (Negative) SARS-CoV-2 Ag (Rap id) Negative (Negative) Discharge Plan Discharge Admit Provider: Luis Angel Aquino Clinical Impression: Diabetic ketoacidosis, Acute kidney injury, Type 1 diabetes, Exposure to COVID- 19 virus, Diarrhea Condition: Stable Interventions: ED Discharge Assessment Last Done: 04/28/20 19:51 ED Charges Last Done: 04/28/20 19:51 Discharge Date/Time: 04/28/20 19:05 Sign Out Sign Out Data: Patient Sign Out occurred on 04/28/20 at 18:30. Patient's care was discussed, and care was transferred from to [facility]. Coding Level of Care Code ED Tower Dragline Operator for Melissa Quiroga
[2020-04-28] MEDS: insulin regular-human 100 units/1 mL 10 UNIT IVP (17:25)
[2020-04-28] MEDS: sodium bicarbonate 8.4% 1 mEq/mL 50mL Syr 100 MEQ IVP (17:26)
[2020-04-28 17:28] LABS: Alanine Aminotransferase 13 U/L (0-33); Albumin Level 4.7 g/dL (3.5-5.2); Alkaline Phosphatase 177 IU/L (35-105); Anion Gap 36.6 (5-19); Aspartate Amino Transferase 15 U/L (0-32); Blood Urea Nitrogen 22 mg/dL (6-20); Calcium 9.9 mg/dL (8.5-10.5); Chloride 94 mmol/L (98-107); Ferritin 236 ng/mL (15-150); Globulin 3.2 g/dL (1.3-4.6); Osmolality Calculated 300 mOsm/kg (285-295); Potassium 5.6 mmol/L (3.5-5.1); Sodium 131 mmol/L (136-145); Total Bilirubin 0.3 mg/dL (0.15-1.2); Total Protein 7.9 g/dL (6.6-8.7)
[2020-04-28 17:33] LABS: Carbon Dioxide 6 mmol/L (22-29)
[2020-04-28 17:34] LABS: Glucose 534 mg/dL (65-115)
[2020-04-28] MEDS: ondansetron 2 mg/ML SDV 2 mL 4 MG IVP (17:40)
[2020-04-28] MEDS: insulin regular-human 250 UNIT in sodium chloride 0.9% 250 ML 10 UNIT IV (17:58)
[2020-04-28 18:05] LABS: Glucose Point of Care 430 mg/dL (70-110)
[2020-04-28 18:16] LABS: Add Urine Microscopic? YES; Bilirubin Urine Neg (Negative); Blood Urine Neg (Negative); Glucose Urine UA 4+ (Normal); Ketones Urine 3+ (Negative); Leukocyte Esterase Urine Negative (Negative); Nitrate Urine Negative (Negative); Protein Urine 1+ (Negative); Urine Appearance Clear (CLEAR); Urine Color Yellow (Yellow); Urobilinogen Urine Norm (Negative); pH Urine 5 (5-7)
[2020-04-28 18:19] LABS: SARS Covid-2 Antigen Negative (Negative)
[2020-04-28] MEDS: LORazepam 2 mg/mL INJ 1 mL (18:19)
[2020-04-28 18:22] LABS: Add Urine Culture? No; Bacteria Urine TRACE /hpf; Mucus Urine TRACE /hpf; Squamous Epithelial Cell Urine 0-4 /hpf (0-5)
[2020-04-28] MEDS: sodium chloride 0.9% 1,000 ML 999 ML IV (18:52)
[2020-04-28 18:55] LABS: Glucose Point of Care 324 mg/dL (70-110)
[2020-04-28] MEDS: sodium chlor 0.9% + KCl 20 mEq 20 MEQ/1,000 ML BAG 175 MEQ IV (18:57)
--- NOTE | 2020-04-28 19:36 | PM.HP ---
Providers/Chief Complaint Admitting Physician: Luis Angel Aquino Primary Care Provider: Francisca Pineda DO Chief Complaint: COVID SYMPTOMS History of Present Illness Nikki Smith is a 24 year old female asked medical history of type 1 diabetes mellitus on insulin, maternal preeclampsia, G1, P1, who presents to [facility] due to a 4-day history of nausea, vomiting, diarrhea, fatigue, malaise, cough, shortness of breath, fevers. Patient tells me that she was exposed to COVID-19, her coworker tested positive on Friday. The day after, she started to feel lightheaded, dizzy, have diarrhea, nausea, vomiting, fatigue, malaise, cough, shortness of breath, fevers. Her symptoms persisted, and worsens, she lives in [place]. No dysuria, no hematuria, no increased urinary frequency. No chest pain, no palpitations. No headache, no blurry vision, no neck pain, no neck stiffness. Denies being . Review of Systems Const: Reports: fever(s), chills, body aches, fatigue and malaise Eyes: Denies: change in vision or blurry vision ENMT: Denies: nasal congestion Resp: Reports: dyspnea and non-productive cough; Denies: productive cough or wheezing GI: Reports: nausea, vomiting and diarrhea; Denies: abdominal pain, hematemesis, constipation, hematochezia or melena : Denies: flank pain, dysuria or urinary frequency Musc: Denies: neck pain or back pain Skin/Breast: Denies: rash Neuro: Denies: headache(s), dizziness or vertigo Psych: Denies: anxiety or depression Endo: Denies: polyuria or polydipsia Medications/Allergies Home Medications Medication Instructions Recorded Confirmed Last Taken Type insulin lispro [Humalog KwikPen 5 unit SUBCUT TID #15 ml 08/21/19 04/28/20 04/27/20 Rx Insulin] insulin glargine [Lantus Solostar 25 unit SUBCUT BID 04/28/20 04/28/20 04/27/20 History U-100 Insulin] Allergies Allergy/AdvReac Type Severity Reaction Status Date / Time No Known Allergies Allergy Verified 03/17/20 09:11 PFSH Acute PFSH: Medical History (Updated 04/28/20 @ 19:40 by Sky Mccullough MD) Depression Type 1 diabetes Surgical History Previous section Family History Denies family history of CAD (coronary artery disease) Bleeding disorder Cancer Social History (Updated 04/28/20 @ 14:11 by Nathaniel Norris RN) Smoking and tobacco status: current every day smoker cigarettes Packs smoked per day: 0.5 Alcohol intake: current Alcohol intake frequency: few times a month Substance/Drug Use: never Caregiver/support person: Yes Housing: House Marital status: Legally Female Reproductive History: Date of last menstrual period: 04/27/20 Vitals/I&O/Wt Last Vital Signs Temp 98.1 F 04/28/20 14:07 Pulse 113 H 04/28/20 14:07 Resp 16 04/28/20 14:07 BP 121/79 04/28/20 14:07 Pulse Ox 99 04/28/20 14:07 Weight last 48 hrs Weight 61.235 kg Physical Exam Const: COMMON NORMALS: no acute distress and patient oriented x3 GENERAL APPEARANCE: cooperative and ill appearing HENMT: COMMON NORMALS: normocephalic HEAD & SCALP: normocephalic Eye: COMMON NORMALS: Equal, round and reactive pupils present, EOMs intact bilaterally and no papilledema GENERAL EYE: appearance normal, both eyes and all related structures PUPIL: Yes Equal, round and reactive pupils present DIRECT OPHTHALMOSCOPY: Yes no papilledema Neck/C-Spine: COMMON NORMALS: full ROM, no lymphadenopathy, no JVD and Thyroid normal THYROID: Thyroid normal Lymph: LYMPHATIC: no lymphadenopathy noted Resp: COMMON NORMALS: normal respiratory effort, No retractions, No use of accessory muscles and clear to auscultation bilaterally AUSCULTATION: clear to auscultation bilaterally Cardio: COMMON NORMALS: no JVD, regular rate, regular rhythm, S1 normal heart sound present, S2 normal heart sound present, No gallops present (Cardio), No clicks present (Cardio) and No murmurs present (Cardio) RATE: regular rate RHYTHM: regular rhythm HEART SOUNDS: S1 normal heart sound present and S2 normal heart sound present GI: COMMON NORMALS: Normal to inspection, nondistended, normoactive bowel sounds present, Soft to palpation, non-tender and No hepatosplenomegaly present PALPATION: Yes Soft to palpation and Yes No hepatosplenomegaly present Extremity: COMMON NORMALS: normal to inspection, full ROM and no pedal edema Neuro: COMMON NORMALS: patient oriented x3, CN's II-XII intact bilaterally, moves all extremities and no focal motor deficits Psych: COMMON NORMALS: mental status grossly normal, Normal thought process present and cooperative THOUGHT PROCESS: Normal thought process present Data : 04/28/20 16:35 04/28/20 16:35 A&P Assessment and plan (1) Diabetic ketoacidosis: -Ketones positive, potassium 5.6, sodium 131, creatinine 1.1, blood sugar 534, pH 7.05, PCO2 11.9, white blood cell count 24.9 -Patient did not take insulin today PLAN: -Admit to ICU -Full code -Lovenox for DVT prophylaxis -Insulin drip -Potassium replacement as needed -BMP every 2 hours -Received 100 mEq of bicarb, after bicarb -Currently n.p.o. -COVID-19 precautions -No other infectious source is found, UA unremarkable for UTI, chest x-ray unremarkable for pneumonia, no signs of meningitis, occasional alcohol use, no symptoms related to pancreatitis Status: Acute (2) Exposure to COVID-19 virus: -Has symptoms highly suspicious of COVID-19, and has exposure -Rapid COVID negative -We will order COVID PCR Status: Acute (3) Type 1 diabetes: Status: Acute (4) Acute kidney injury: Status: Acute Attestations Medical Necessity Statement*: Patient cards hospitalization, inpatient, greater than 2 midnights, for diabetic ketoacidosis, exposure COVID-19, COVID-19 symptoms Coding Level of Care Code Acute Ui Programmer for [facility] Diagnoses Diabetic ketoacidosis E11.10 Exposure to COVID-19 virus Z20.828 Type 1 diabetes E10.9 Acute kidney injury N17.9
[2020-04-28 19:42] VITALS: BP 107/63; PULSE 103; RESP 21; TEMP 37.2; O2SAT 100
[2020-04-28 20:00] VITALS: BP 107/63; PULSE 104; RESP 22; O2SAT 100
[2020-04-28] MEDS: sodium chlor 0.9% + KCl 20 mEq 20 MEQ/1,000 ML BAG 100 MEQ IV (20:07)
[2020-04-28] MEDS: acetaminophen 325 mg Tablet 650 MG PO (20:28)
[2020-04-28 20:33] LABS: ABG PH Result 7.19 (7.35-7.45); Arterial Blood Gas Hematocrit 42.8 % (37-47); Base Excess ABG -18.8 mmol/L (-2.0-2.0); Blood Gas Allen Test Pos; Blood Gas Operator Identificat HARKR; Blood Gas Sample Site Radial, right; Blood Gas Sample Type Arterial; HCO3 ABG 7.2 mmol/L (22-26); Oxygen Device ROOM AIR
[2020-04-28] MEDS: enoxaparin 40 mg/0.4 mL Syringe SUBCUT (20:43)
[2020-04-28 21:00] VITALS: BP 113/62; PULSE 105; RESP 23; O2SAT 100
[2020-04-28 21:09] LABS: Lactic Sepsis W/Reflex 1.6 mmol/L (0.5-2.2)
[2020-04-28 21:12] LABS: Glucose Point of Care 126 mg/dL (70-110)
[2020-04-28] MEDS: dextrose 5%-ns + KCl 20 20 MEQ/1,000 ML BAG 100 MEQ IV (21:15)
[2020-04-28 21:20] LABS: Blood Urea Nitrogen 18 mg/dL (6-20); Calcium 8.4 mg/dL (8.5-10.5); Chloride 110 mmol/L (98-107); Glomerular Filtration Rate 76.9 mL/min (90-130); Glucose 181 mg/dL (65-115); Osmolality Calculated 294 mOsm/kg (285-295); Sodium 139 mmol/L (136-145)
[2020-04-28 21:26] LABS: Anion Gap 25.1 (5-19); Potassium 4.1 mmol/L (3.5-5.1)
[2020-04-28 21:27] LABS: Carbon Dioxide 8 mmol/L (22-29)
[2020-04-28 22:00] VITALS: BP 110/61; PULSE 110; RESP 25; O2SAT 98
[2020-04-28 22:02] LABS: Glucose Point of Care 124 mg/dL (70-110)
[2020-04-28] MEDS: TRAMadol 50 mg Tablet 25 MG PO (22:58)
[2020-04-28 23:00] VITALS: BP 97/61; PULSE 109; RESP 17; O2SAT 100
[2020-04-28 23:13] LABS: Anion Gap 22.4 (5-19); Blood Urea Nitrogen 14 mg/dL (6-20); Chloride 113 mmol/L (98-107); Glomerular Filtration Rate 102.8 mL/min (90-130); Glucose 170 mg/dL (65-115); Lipase 18 U/L (13-60); Osmolality Calculated 292 mOsm/kg (285-295); Potassium 4.4 mmol/L (3.5-5.1); Sodium 139 mmol/L (136-145)
[2020-04-28 23:19] LABS: Carbon Dioxide 8 mmol/L (22-29)
[2020-04-29] VITALS (25 sets, daily range): BP systolic 94–133; BP diastolic 50–82; PULSE 76–109; RESP 16–35; O2SAT 97–100
[2020-04-29 00:20] LABS: Glucose Point of Care 192 mg/dL (70-110)
[2020-04-29 01:10] LABS: Glucose Point of Care 152 mg/dL (70-110)
[2020-04-29] MEDS: sodium bicarbonate 8.4% 1 mEq/mL 50mL Syr 50 MEQ IVP (01:13)
[2020-04-29 01:52] LABS: Anion Gap 15.5 (5-19); Blood Urea Nitrogen 11 mg/dL (6-20); Calcium 6.8 mg/dL (8.5-10.5); Carbon Dioxide 10 mmol/L (22-29); Chloride 116 mmol/L (98-107); Glomerular Filtration Rate 122.8 mL/min (90-130); Glucose 162 mg/dL (65-115); Osmolality Calculated 289 mOsm/kg (285-295); Potassium 3.5 mmol/L (3.5-5.1); Sodium 138 mmol/L (136-145)
[2020-04-29 02:07] LABS: Glucose Point of Care 149 mg/dL (70-110)
[2020-04-29 03:11] LABS: Glucose Point of Care 130 mg/dL (70-110)
[2020-04-29 04:06] LABS: Glucose Point of Care 104 mg/dL (70-110)
[2020-04-29 05:15] LABS: Glucose Point of Care 103 mg/dL (70-110)
[2020-04-29 05:33] LABS: Basophils # 0.1 10^3/uL (0.0-0.1); Basophils % 0.5 %; Eosinophils % 0.1 %; Hematocrit 37.2 % (37.0-47.0); Hemoglobin 12.8 g/dL (11.5-15.3); Lymphocytes # 3.5 10^3/uL (0.8-4.8); Lymphocytes % 23.2 %; Mean Corpuscular HGB Conc 34.4 g/dL (30.0-36.0); Mean Corpuscular Hemoglobin 31.6 pg (28.0-34.0); Mean Corpuscular Volume 91.9 fL (81-99); Mean Platelet Volume 11.5 fL (7.4-10.4); Monocytes # 1.2 10^3/uL (0.2-0.9); Neutrophils # 10.09 10^3/uL (1.8-7.7); Neutrophils % 66.5 %; Nucleated Red Blood Cells % 0 %; Platelet Count 307 10^3/cmm (130-400); Red Blood Count 4.05 10^6/uL (4.1-5.3); Red Cell Distribution Width 11.5 % (12.1-15.1); White Blood Count 15.2 10^3/uL (4.0-10.0)
[2020-04-29] MEDS: dextrose 5%-ns + KCl 20 20 MEQ/1,000 ML BAG 100 MEQ IV ×2 (06:09→15:45)
[2020-04-29 06:13] LABS: Glucose Point of Care 83 mg/dL (70-110)
[2020-04-29 08:04] LABS: Procalcitonin 0.75 ng/mL (0-0.5)
[2020-04-29 08:05] LABS: Glucose Point of Care 148 mg/dL (70-110)
[2020-04-29 08:15] LABS: Alanine Aminotransferase 8 U/L (0-33); Albumin Level 3.3 g/dL (3.5-5.2); Alkaline Phosphatase 103 IU/L (35-105); Anion Gap 12.6 (5-19); Aspartate Amino Transferase 10 U/L (0-32); Blood Urea Nitrogen 13 mg/dL (6-20); C Reactive Protein 13.9 mg/L (0.0-4.9); Calcium 8.2 mg/dL (8.5-10.5); Carbon Dioxide 16 mmol/L (22-29); Chloride 114 mmol/L (98-107); Globulin 2.1 g/dL (1.3-4.6); Glomerular Filtration Rate 122.8 mL/min (90-130); Glucose 101 mg/dL (65-115); Magnesium 1.9 mg/dL (1.7-2.3); Osmolality Calculated 288 mOsm/kg (285-295); Phosphorus 2.6 mg/dL (2.5-4.5); Potassium 3.6 mmol/L (3.5-5.1); Sodium 139 mmol/L (136-145); Total Bilirubin 0.4 mg/dL (0.15-1.2); Total Protein 5.4 g/dL (6.6-8.7)
--- NOTE | 2020-04-29 10:56 | PM.PN ---
Subjective Subjective: Interval history: She is doing better. She says that so far she has not had any more diarrhea. She denies any nausea or vomiting. She says that her appetite is coming back. Vitals/I&O/Wt Last Vital Signs Temp 98.9 F 04/28/20 19:42 Pulse 78 04/29/20 08:08 Resp 18 04/29/20 08:00 BP 111/70 04/29/20 08:00 Pulse Ox 98 04/29/20 08:08 04/28/20 04/29/20 04/29/20 22:59 06:59 14:59 Intake Total 1026.858 / 7113.734 1727.5 / 2408.358 Output Total 800 / 800 Balance 1026.858 / 5755.849 6248.5 / 2408.358 -800 / -800 Weight last 48 hrs Weight 61.235 kg Physical Exam Const: COMMON NORMALS: no acute distress and patient oriented x3 HENMT: COMMON NORMALS: oropharynx normal Neck/C-Spine: COMMON NORMALS: no JVD Resp: COMMON NORMALS: normal respiratory effort and clear to auscultation bilaterally AUSCULTATION: clear to auscultation bilaterally Cardio: COMMON NORMALS: no JVD, regular rhythm, S1 normal heart sound present, S2 normal heart sound present and No murmurs present (Cardio) RHYTHM: regular rhythm HEART SOUNDS: S1 normal heart sound present and S2 normal heart sound present GI: COMMON NORMALS: Normal to inspection, nondistended, normoactive bowel sounds present, Soft to palpation and non-tender PALPATION: Yes Soft to palpation Extremity: COMMON NORMALS: no joint enlargement and no pedal edema Neuro: COMMON NORMALS: patient oriented x3 and moves all extremities Skin: COMMON NORMALS: no rashes or lesions noted GENERAL SKIN EXAM: no rashes or lesions noted Data : 04/29/20 04:38 04/29/20 07:14 Micro: Microbiology 04/28/20 20:29 Blood Culture - Preliminary Blood SPECIMEN COLLECTED 04/28/20 20:27 Blood Culture - Preliminary Blood SPECIMEN COLLECTED A&P Assessment and plan (1) Diabetic ketoacidosis: Improving. Anion gap is down to 12.6. Bicarbonate up to 16. Subjectively she is feeling better. Potassium is down to 3.6. Will give additional potassium. Recheck labs. If bicarbonate continues to improve, she is doing well, may transition to subcutaneous insulin. She says she takes Lantus 25 units twice daily. She also takes Humalog with carb counting. Continue IVF. She is feeling better and is hungry, will start consistent carbohydrate diet. -COVID-19 precautions -No other infectious source is found, UA unremarkable for UTI, chest x-ray unremarkable for pneumonia, no signs of meningitis, occasional alcohol use, no symptoms related to pancreatitis Status: Acute (2) Exposure to COVID-19 virus: -Has symptoms highly suspicious of COVID-19, and has exposure -Rapid COVID negative Follow COVID PCR Status: Acute (3) Type 1 diabetes: Status: Acute (4) Acute kidney injury: Resolved Status: Acute (5) Diarrhea: This appears to have subsided, no more liquid bowel movement so far. Continue to monitor. COVID-19 PCR pending. Status: Acute Attestations Medical Necessity Statement*: Continue admission versus management of DKA, PUI for coronavirus. Coding Level of Care Code Acute Public Health Clinical Nurse Specialist for [facility] Fwd Exam Comprehensive Diagnoses Diabetic ketoacidosis E11.10 Exposure to COVID-19 virus Z20.828 Type 1 diabetes E10.9 Acute kidney injury N17.9 Diarrhea R19.7
[2020-04-29] MEDS: potassium chloride premix 100 ML 25 MEQ IV (12:05)
[2020-04-29] MEDS: sodium chloride 0.9% (100 ml) 100 ML 25 ML (12:06)
[2020-04-29 12:13] LABS: Anion Gap 13.7 (5-19); Blood Urea Nitrogen 13 mg/dL (6-20); Carbon Dioxide 16 mmol/L (22-29); Chloride 112 mmol/L (98-107); Glomerular Filtration Rate 122.8 mL/min (90-130); Glucose 139 mg/dL (65-115); Osmolality Calculated 288 mOsm/kg (285-295); Potassium 3.7 mmol/L (3.5-5.1); Sodium 138 mmol/L (136-145)
[2020-04-29 16:28] LABS: Anion Gap 12.7 (5-19); Blood Urea Nitrogen 10 mg/dL (6-20); Calcium 8.9 mg/dL (8.5-10.5); Carbon Dioxide 17 mmol/L (22-29); Chloride 113 mmol/L (98-107); Glomerular Filtration Rate 102.8 mL/min (90-130); Glucose 161 mg/dL (65-115); Osmolality Calculated 291 mOsm/kg (285-295); Potassium 3.7 mmol/L (3.5-5.1); Sodium 139 mmol/L (136-145)
[2020-04-29 17:41] LABS: Glucose Point of Care 235 mg/dL (70-110)
[2020-04-29 17:41] LABS: Glucose Point of Care 108 mg/dL (70-110)
[2020-04-29 17:41] LABS: Glucose Point of Care 195 mg/dL (70-110)
[2020-04-29 17:41] LABS: Glucose Point of Care 120 mg/dL (70-110)
[2020-04-29 17:41] LABS: Glucose Point of Care 114 mg/dL (70-110)
[2020-04-29 17:41] LABS: Glucose Point of Care 116 mg/dL (70-110)
[2020-04-29 17:41] LABS: Glucose Point of Care 183 mg/dL (70-110)
[2020-04-29 17:41] LABS: Glucose Point of Care 97 mg/dL (70-110)
[2020-04-29 17:41] LABS: Glucose Point of Care 100 mg/dL (70-110)
[2020-04-29 17:41] LABS: Glucose Point of Care 95 mg/dL (70-110)
[2020-04-29 17:41] LABS: Glucose Point of Care 78 mg/dL (70-110)
[2020-04-29 18:22] LABS: Glucose Point of Care 199 mg/dL (70-110)
[2020-04-29 20:20] LABS: Anion Gap 12.4 (5-19); Blood Urea Nitrogen 7 mg/dL (6-20); Calcium 8.2 mg/dL (8.5-10.5); Carbon Dioxide 19 mmol/L (22-29); Chloride 110 mmol/L (98-107); Glomerular Filtration Rate 151.6 mL/min (90-130); Glucose 179 mg/dL (65-115); Osmolality Calculated 288 mOsm/kg (285-295); Potassium 3.4 mmol/L (3.5-5.1); Sodium 138 mmol/L (136-145)
[2020-04-29] MEDS: enoxaparin 40 mg/0.4 mL Syringe SUBCUT (21:03)
[2020-04-30] VITALS (10 sets, daily range): BP systolic 99–132; BP diastolic 67–91; PULSE 71–96; RESP 15–21; TEMP 37.2; O2SAT 95–100
[2020-04-30] MEDS: dextrose 5%-ns + KCl 20 20 MEQ/1,000 ML BAG 100 MEQ IV ×2 (01:45→17:52)
[2020-04-30 04:13] LABS: Glucose Point of Care 91 mg/dL (70-110)
[2020-04-30 04:13] LABS: Glucose Point of Care 92 mg/dL (70-110)
[2020-04-30 04:13] LABS: Glucose Point of Care 130 mg/dL (70-110)
[2020-04-30 04:13] LABS: Glucose Point of Care 84 mg/dL (70-110)
[2020-04-30 04:13] LABS: Glucose Point of Care 70 mg/dL (70-110)
[2020-04-30 04:13] LABS: Glucose Point of Care 107 mg/dL (70-110)
[2020-04-30 04:13] LABS: Glucose Point of Care 113 mg/dL (70-110)
[2020-04-30 04:13] LABS: Glucose Point of Care 79 mg/dL (70-110)
[2020-04-30 04:13] LABS: Glucose Point of Care 172 mg/dL (70-110)
[2020-04-30 04:13] LABS: Glucose Point of Care 141 mg/dL (70-110)
[2020-04-30 05:33] LABS: Basophils % 0.5 %; Eosinophils # 0.1 10^3/uL (0.0-0.8); Eosinophils % 0.7 %; Hematocrit 34.7 % (37.0-47.0); Hemoglobin 11.9 g/dL (11.5-15.3); Lymphocytes # 3.4 10^3/uL (0.8-4.8); Lymphocytes % 40.5 %; Mean Corpuscular HGB Conc 34.3 g/dL (30.0-36.0); Mean Corpuscular Hemoglobin 31.3 pg (28.0-34.0); Mean Corpuscular Volume 91.3 fL (81-99); Mean Platelet Volume 11.7 fL (7.4-10.4); Monocytes # 0.5 10^3/uL (0.2-0.9); Monocytes % 5.8 %; Neutrophils # 4.33 10^3/uL (1.8-7.7); Neutrophils % 51.5 %; Nucleated Red Blood Cells % 0 %; Platelet Count 245 10^3/cmm (130-400); Red Cell Distribution Width 11.8 % (12.1-15.1); White Blood Count 8.4 10^3/uL (4.0-10.0)
[2020-04-30 05:54] LABS: Anion Gap 12.5 (5-19); Blood Urea Nitrogen 6 mg/dL (6-20); Calcium 8.2 mg/dL (8.5-10.5); Carbon Dioxide 21 mmol/L (22-29); Chloride 112 mmol/L (98-107); Glomerular Filtration Rate 151.6 mL/min (90-130); Glucose 86 mg/dL (65-115); Osmolality Calculated 291 mOsm/kg (285-295); Potassium 3.5 mmol/L (3.5-5.1); Sodium 142 mmol/L (136-145)
[2020-04-30 05:56] LABS: C Reactive Protein 7.3 mg/L (0.0-4.9); Magnesium 1.7 mg/dL (1.7-2.3); Phosphorus 2.2 mg/dL (2.5-4.5)
[2020-04-30 06:03] LABS: Procalcitonin 0.41 ng/mL (0-0.5)
--- NOTE | 2020-04-30 08:15 | PC.NURSE ---
0700-- RECEIVED REPORT FROM JUAN JOSE DELGADO. PT DID WELL OVER NIGHT. REMAINS ON INSULIN DRIP. NASAL SWABS FOR MRSA & INFLUENZA OBTAINED, TAKEN TO LAB. PT C/O FEELING TIRED ALL THE TIME. WOULD LIKE EJ REMOVED D/T PAIN/TENDERNESS.
[2020-04-30] MEDS: magnesium sulfate premix 2 GM/50 ML PIGGYBACK IV (08:28)
[2020-04-30] MEDS: potassium chloride ER 10 mEq Tablet 40 MEQ PO (08:28)
[2020-04-30 09:59] LABS: Influenza A by IFA Negative (Negative); Influenza B by IFA Negative (Negative)
[2020-04-30] MEDS: insulin glargine 100 units/1 mL 25 UNIT SUBCUT ×2 (10:47→21:15)
--- NOTE | 2020-04-30 11:45 | PM.PN ---
Subjective Subjective: Interval history: She is doing well. Appetite is good. No nausea or vomiting. Diarrhea has resolved. No chest pain or pressure, no shortness of breath or other complaints. Vitals/I&O/Wt Last Vital Signs Temp 98.9 F 04/28/20 19:42 Pulse 96 04/30/20 08:04 Resp 18 04/30/20 08:04 BP 123/89 04/30/20 08:04 Pulse Ox 99 04/30/20 08:04 04/29/20 04/30/20 04/30/20 22:59 06:59 14:59 Intake Total 2166.6 / 2406.6 1521.967 / 3928.567 536.783 / 536.783 Output Total 1200 / 2000 900 / 2900 Balance 966.6 / 406.6 621.967 / 1028.567 536.783 / 536.783 Weight last 48 hrs Weight 61.235 kg Physical Exam Const: COMMON NORMALS: no acute distress and patient oriented x3 HENMT: COMMON NORMALS: oropharynx normal Neck/C-Spine: COMMON NORMALS: no JVD Resp: COMMON NORMALS: normal respiratory effort and clear to auscultation bilaterally AUSCULTATION: clear to auscultation bilaterally Cardio: COMMON NORMALS: no JVD, regular rhythm, S1 normal heart sound present, S2 normal heart sound present and No murmurs present (Cardio) RHYTHM: regular rhythm HEART SOUNDS: S1 normal heart sound present and S2 normal heart sound present GI: COMMON NORMALS: Normal to inspection, nondistended, normoactive bowel sounds present, Soft to palpation and non-tender PALPATION: Yes Soft to palpation Extremity: COMMON NORMALS: no joint enlargement and no pedal edema Neuro: COMMON NORMALS: patient oriented x3 and moves all extremities Skin: COMMON NORMALS: no rashes or lesions noted GENERAL SKIN EXAM: no rashes or lesions noted Data : 04/30/20 04:00 04/30/20 04:00 Micro: Microbiology 04/28/20 20:29 Blood Culture - Preliminary Blood NEGATIVE TO DATE 04/28/20 20:27 Blood Culture - Preliminary Blood NEGATIVE TO DATE A&P Assessment and plan (1) Diabetic ketoacidosis: Resolved. Transition to subcutaneous insulin. She takes glargine 25 units twice a day. We did not overlap her insulins as her glucose was low but soft this morning so we discontinued drip. Continue consistent carbohydrate diet. Nursing will work with her in terms of Humalog dosing as she at home adjust her dose depending on carbohydrate intake. Ordered insulin sliding scale. Give additional potassium and magnesium replacement for hypokalemia, hypomagnesemia. Add dairy to meals for hypophosphatemia. Continue IVF. Monitor glucose. -No other infectious source is found, UA unremarkable for UTI, chest x-ray unremarkable for pneumonia, no signs of meningitis, occasional alcohol use, no symptoms related to pancreatitis Follow COVID-19 PCR. Status: Acute (2) Exposure to COVID-19 virus: No further symptoms. Diarrhea resolved. She is doing well. Has remained afebrile. -Rapid COVID negative Follow COVID PCR Status: Acute (3) Type 1 diabetes: Status: Acute (4) Acute kidney injury: Resolved Status: Acute (5) Diarrhea: This appears to have subsided, no more liquid bowel movement so far. Continue to monitor. COVID-19 PCR pending. Status: Acute Attestations Medical Necessity Statement*: Continue admission for assessment of management of DKA. Coding Level of Care Code Acute Bowling Alley Refinisher for [facility] Fwd Diagnoses Diabetic ketoacidosis E11.10 Exposure to COVID-19 virus Z20.828 Type 1 diabetes E10.9 Acute kidney injury N17.9 Diarrhea R19.7
--- NOTE | 2020-04-30 12:57 | PC.NURSE ---
1245-- PT SLIDING SCALE INSULIN PT TYPICALLY COUNTS CARBS FOR HER COVERAGE OF MEALS, SHE CHECKED SUGAR WITH HER MONITOR--452, SHE WAS GIVEN 10 UNITS NOVOLOG PER HER CALCULATIONS. DR EDDY & PT TALKED ABOUT THIS PREVIOUSLY DURING MORNING ROUNDS
[2020-04-30 13:50] LABS: Glucose Point of Care 158 mg/dL (70-110)
[2020-04-30 15:16] LABS: Coronavirus Lab Test PTC Negative
[2020-04-30 16:54] LABS: Glucose Point of Care 93 mg/dL (70-110)
[2020-04-30 16:55] LABS: Glucose Point of Care 98 mg/dL (70-110)
[2020-04-30 16:55] LABS: Glucose Point of Care 95 mg/dL (70-110)
[2020-04-30 16:55] LABS: Glucose Point of Care 322 mg/dL (70-110)
[2020-04-30 16:55] LABS: Glucose Point of Care 77 mg/dL (70-110)
--- NOTE | 2020-04-30 20:32 | PC.NURSE ---
TRANSFER FROM ICU Pt received via wheelchair from ICU. Alert and oriented. Denies pain. Requested to shower.
[2020-04-30] MEDS: enoxaparin 40 mg/0.4 mL Syringe SUBCUT (21:14)
[2020-04-30 21:34] LABS: Glucose Point of Care 281 mg/dL (70-110)
--- NOTE | 2020-04-30 21:42 | PC.NURSE ---
ice pack Patient reports burning and irritation from the IV insertion discontinued in her neck. Placed Ice pack @2243. will continue to monitor.
[2020-05-01] VITALS: BP 118/81; PULSE 86; RESP 20; TEMP 36.8; O2SAT 99
[2020-05-01] MEDS: dextrose 5%-ns + KCl 20 20 MEQ/1,000 ML BAG 100 MEQ IV ×2 (03:55→09:10)
[2020-05-01 04:00] VITALS: BP 105/71; PULSE 81; RESP 18; TEMP 36.7; O2SAT 99
--- NOTE | 2020-05-01 05:55 | PC.NURSE ---
SHIFT SUMMARY Has rested well since arriving to floor from ICU. No c/o pain or discomfort. IV infusing at 100ml/hr rate. Pt does own insulin sliding scale management by counting carbs.
[2020-05-01 06:42] LABS: Glucose Point of Care 254 mg/dL (70-110)
[2020-05-01 08:00] VITALS: BP 125/82; PULSE 80; RESP 17; TEMP 36.8; O2SAT 100
[2020-05-01] MEDS: insulin glargine 100 units/1 mL 25 UNIT SUBCUT ×2 (09:03→21:12)
--- NOTE | 2020-05-01 10:09 | PC.NURSE ---
notified Dr Kauffman that patient has 2/4 bottles positive blood culture for staphylococcus aureus
--- NOTE | 2020-05-01 11:50 | USCV_ITS ---
Nikki Smith Age: 24 Gender: F : 1995 Exam Date: 05/01/2020 14:46 Ordering Phys: Anne Kauffman MD Technologist: Tru Mancilla Exam Location: [facility] [place] Indication: neck swelling HISTORY: Upper extremity swelling. PROCEDURES: Venous duplex imaging was performed in only the left upper extremity. The following venous structures were evaluated: internal jugular vein, subclavian vein, axillary vein, and brachial veins. In addition, the basilic vein, cephalic vein, radial vein, and ulnar vein. Serial compression, augmentation maneuvers, and spectral Doppler flow evaluation were performed. FINDINGS: Normal 2-D, color Doppler and phasicity noted in the left upper extremity venous system extending from the left internal jugular vein through the main forearm. No thrombosis or occlusion noted. CONCLUSIONS No left upper extremity DVT. Dr. Jannette Mcgowan DO (Electronically Signed) Final Date: 01 May 2020 15:57 S
--- NOTE | 2020-05-01 11:50 | USCV_ITS ---
Nikki Smith Age: 24 Gender: F : 1995 Exam Date: 05/01/2020 14:35 Ordering Phys: Anne Kauffman MD Technologist: Tru Mancilla Exam Location: [facility] [place] Indication: bacteremia BP: 124 / 73 HR: 72 Rhythm: Sinus Technical Quality: Adequate MEASUREMENTS (Male / Female) Normal Values 2D ECHO LV Diastolic Diameter PLAX 3.9 cm 4.2 - 5.9 / 3.9 - 5.3 cm LV Systolic Diameter PLAX 2.9 cm IVS Diastolic Thickness 1.0 cm 0.6 - 1.0 / 0.6 - 0.9 cm IVS Systolic Thickness 1.3 cm LVPW Diastolic Thickness 1.0 cm 0.6 - 1.0 / 0.6 - 0.9 cm LVPW Systolic Thickness 1.0 cm LVOT Diameter 2.0 cm LV Ejection Fraction 2D Teich 52.5 % LV Ejection Fraction MOD 2C 66.0 % LV Ejection Fraction 2C AL 66.5 % LA Diameter 2.8 cm LA Width 3.6 cm LA Height 4.2 cm RA Width 3.6 cm RA Height 3.8 cm M-MODE LV Diastolic Diameter MM 5.5 cm 4.2 - 5.9 / 3.9 - 5.3 cm LV Systolic Diameter MM 3.9 cm LV Ejection Fraction MM Teich 56.1 % IVS Diastolic Thickness MM 0.8 cm 0.6 - 1.0 / 0.6 - 0.9 cm IVS Systolic Thickness MM 1.3 cm LVPW Diastolic Thickness MM 0.7 cm 0.6 - 1.0 / 0.6 - 0.9 cm LVPW Systolic Thickness MM 1.6 cm RV Diastolic Diameter MM 0.3 cm Aortic Annulus Diameter 2.8 cm LA Ao Ratio MM 1.1 MV E Point Septal Separation 1.1 cm DOPPLER AV Peak Velocity 135.0 cm/s LVOT Peak Velocity 91.0 cm/s AV Area Cont Eq vti 2.3 cm squared AV Area Cont Eq pk 2.2 cm squared MV Area PHT 5.0 cm squared Mitral E to A Ratio 2.7 MV E' Velocity 55.0 cm/s Mitral E to MV E' Ratio 8.1 Mitral E to LV E' Lateral Ratio 7.2 Mitral E to LV E' Septal Ratio 9.2 TR Peak Velocity 170.3 cm/s TR Peak Gradient 11.6 mmHg Right Atrial Pressure 3.0 mmHg Pulmonary Artery Systolic Pressu 14.6 mmHg FINDINGS Left Ventricle Normal left ventricular size, systolic function and wall thickness, with no regional wall motion abnormalities. Systolic function is normal with EF of 55 to 60%. Normal left ventricular wall thickness. Normal diastolic filling pattern. Right Ventricle The right ventricle is normal in size and function. Right Atrium The right atrium is normal in size. Left Atrium The left atrium is normal in size. Mitral Valve Structurally normal mitral valve without significant stenosis or prolapse. There is no mitral regurgitation. Aortic Valve Structurally normal aortic valve without significant sclerosis or stenosis. There is no aortic regurgitation. Tricuspid Valve Structurally normal tricuspid valve without significant stenosis or regurgitation. Insufficient TR jet to calculate RVSP. Pulmonic Valve Not well visualized.. There is no pulmonic regurgitation. Pericardium Normal pericardium without effusion. Aorta Normal ascending aorta dimension. CONCLUSIONS LV systolic function is normal with EF of 55 to 60%. Diastolic function is normal. No valvular vegetations seen. No prior studies for comparison available. Cooper Greenberg MD (Electronically Signed) Final Date: 01 May 2020 15:54 S
[2020-05-01 11:53] VITALS: BP 127/85; PULSE 87; RESP 16; TEMP 37.1; O2SAT 99
[2020-05-01 13:59] LABS: Glucose Point of Care 209 mg/dL (70-110)
[2020-05-01] MEDS: vancomycin 1,000 MG in sodium chloride 0.9% 250 ML 250 MG IV ×2 (14:21→21:12)
--- NOTE | 2020-05-01 15:08 | PC.RESP ---
SMOKING CESSATION INFORMATION SENT TO PATIENT.
[2020-05-01 15:50] VITALS: BP 126/85; PULSE 84; RESP 17; TEMP 36.6; O2SAT 99
--- NOTE | 2020-05-01 17:10 | PM.PN ---
Subjective Subjective: Interval history: Patient DKA remains resolved, it was planned to be discharged today, however the blood cultures from admission resulted as positive as 2 out of 4 sets with Staph aureus per preliminary coagulase testing from microbiology lab. Still awaiting final micro scan identification and susceptibility. Medications: Reviewed: Yes Vitals/I&O/Wt Last Vital Signs Temp 97.8 F 05/01/20 15:50 Pulse 84 05/01/20 15:50 Resp 17 05/01/20 15:50 BP 126/85 05/01/20 15:50 Pulse Ox 99 05/01/20 15:50 05/01/20 05/01/20 05/01/20 06:59 14:59 22:59 Intake Total 1200 / 3576.783 1202 / 1202 Output Total 700 / 1000 Balance 500 / 2576.783 1202 / 1202 Physical Exam Narrative: EXAM NARRATIVE: GEN: Awake, alert and oriented, no acute distress CVS: S1S2 N RS: CTA B/L Abd: Soft, nt/nd , bs+ DIABETOLOGIST: no focal neuro deficits Data : 04/30/20 04:00 04/30/20 04:00 Micro: Microbiology 05/01/20 13:52 Blood Culture - Preliminary Blood SPECIMEN COLLECTED 05/01/20 13:46 Blood Culture - Preliminary Blood SPECIMEN COLLECTED 04/28/20 20:29 Blood Culture - Preliminary Blood Staphylococcus aureus 04/30/20 07:40 MRSA Culture - Final Nose A&P Assessment and plan (1) Diabetic ketoacidosis: Resolved. Transition to subcutaneous insulin. Continue the same for now. Discontinued 5% dextrose. Patient is able to eat and drink adequately at this present time. Saturating 99% on room air. COVID-19 PCR eventually returned negative. Today blood cultures were reported as positive 2 out of 4 sets for Staph aureus per preliminary testing by micro lab. Check stat blood cultures today. Start IV vancomycin while awaiting final identification from micro scan. Check echocardiogram and also left upper extremity Doppler extending up to the neck as patient is complaining of some soreness at the IV site in her external IJ on left side Status: Acute (2) Exposure to COVID-19 virus: No further symptoms. Diarrhea resolved. She is doing well. Has remained afebrile. Rapid COVID negative COVID PCR negative Status: Acute (3) Type 1 diabetes: Status: Acute (4) Acute kidney injury: Resolved Status: Acute (5) Diarrhea: This appears to have subsided, no more liquid bowel movement so far. Continue to monitor. Status: Acute (6) Staphylococcus aureus bacteremia: Patient's blood cultures from admission today reported positive a staph aureus based on testing of coagulase manually by micro tech. Awaiting results of micro scan and further susceptibility testing. Check repeat blood cultures, start empiric IV vancomycin. Instructed to start IV vancomycin only after blood cultures have been taken. Patient denies any history of IV drug use. Her last tattoo dates back to at least July of this year. No recent folliculitis. echo and venous duplex as above Status: Acute Attestations Medical Necessity Statement*: staph aureus bacteremia needing further assessment Coding Level of Care Code Acute Machine Slat Basket Maker for [facility] Fwd Diagnoses Diabetic ketoacidosis E11.10 Exposure to COVID-19 virus Z20.828 Type 1 diabetes E10.9 Acute kidney injury N17.9 Diarrhea R19.7 Staphylococcus aureus bacteremia R78.81; B95.61
[2020-05-01 18:58] LABS: Glucose Point of Care 112 mg/dL (70-110)
[2020-05-01 20:00] VITALS: BP 121/84; PULSE 82; RESP 17; TEMP 37.1; O2SAT 98
[2020-05-01] MEDS: enoxaparin 40 mg/0.4 mL Syringe SUBCUT (20:01)
[2020-05-01 21:02] LABS: Glucose Point of Care 151 mg/dL (70-110)
[2020-05-02] VITALS: BP 121/67; PULSE 77; RESP 17; TEMP 37.1; O2SAT 95
[2020-05-02 04:00] VITALS: BP 122/81; PULSE 75; RESP 17; TEMP 36.6; O2SAT 99
[2020-05-02] MEDS: vancomycin 1,000 MG in sodium chloride 0.9% 250 ML 250 MG IV ×2 (05:23→12:32)
[2020-05-02 05:26] LABS: Basophils % 0.5 %; Eosinophils # 0.1 10^3/uL (0.0-0.8); Eosinophils % 1.2 %; Hematocrit 41.9 % (37.0-47.0); Hemoglobin 13.8 g/dL (11.5-15.3); Lymphocytes # 2.8 10^3/uL (0.8-4.8); Lymphocytes % 38.4 %; Mean Corpuscular HGB Conc 32.9 g/dL (30.0-36.0); Mean Corpuscular Hemoglobin 30.8 pg (28.0-34.0); Mean Corpuscular Volume 93.5 fL (81-99); Mean Platelet Volume 10.8 fL (7.4-10.4); Monocytes # 0.5 10^3/uL (0.2-0.9); Monocytes % 7.3 %; Neutrophils # 3.77 10^3/uL (1.8-7.7); Neutrophils % 51.6 %; Nucleated Red Blood Cells % 0 %; Platelet Count 259 10^3/cmm (130-400); Red Blood Count 4.48 10^6/uL (4.1-5.3); Red Cell Distribution Width 11.3 % (12.1-15.1); White Blood Count 7.3 10^3/uL (4.0-10.0)
[2020-05-02 05:36] LABS: Anion Gap 15.9 (5-19); Blood Urea Nitrogen 10 mg/dL (6-20); Calcium 9.9 mg/dL (8.5-10.5); Carbon Dioxide 28 mmol/L (22-29); Chloride 102 mmol/L (98-107); Glomerular Filtration Rate 122.8 mL/min (90-130); Glucose 157 mg/dL (65-115); Osmolality Calculated 296 mOsm/kg (285-295); Potassium 3.9 mmol/L (3.5-5.1); Sodium 142 mmol/L (136-145)
[2020-05-02 06:47] LABS: Glucose Point of Care 126 mg/dL (70-110)
[2020-05-02 08:00] VITALS: BP 118/79; PULSE 73; RESP 16; TEMP 36.8; O2SAT 98
[2020-05-02] MEDS: insulin glargine 100 units/1 mL 25 UNIT SUBCUT (08:57)
[2020-05-02 11:16] VITALS: BP 107/74; PULSE 78; RESP 16; TEMP 36.8; O2SAT 98
[2020-05-02 11:49] LABS: Glucose Point of Care 171 mg/dL (70-110)
[2020-05-02 13:37] LABS: Vancomycin Trough 18.3 ug/mL (10-15)
[2020-05-02 15:43] VITALS: BP 123/82; PULSE 87; RESP 16; TEMP 37; O2SAT 98
[2020-05-02 16:00] VITALS: BP 123/82; PULSE 87; RESP 16; TEMP 37; O2SAT 98
--- NOTE | 2020-05-02 21:59 | PM.DCS ---
Discharge Providers Date of Admission: 04/28/20 18:45 Date of Discharge: May 02, 2020 Attending Provider at Admission: Luis Angel Aquino Attending Provider at Discharge: Anne Kauffman MD Primary Care Provider: Francisca Pineda DO Diagnoses at Discharge Discharge Diagnosis (1) Diabetic ketoacidosis: Status: Acute (2) Exposure to COVID-19 virus: Status: Acute (3) Type 1 diabetes: Status: Acute (4) Acute kidney injury: Status: Acute (5) Diarrhea: Status: Acute Reason for Visit Reason for Visit: COVID SYMPTOMS Hospital Course Discharge Summary: Nikki Smith is a 24 year old female asked medical history of type 1 diabetes mellitus on insulin who presented on 04/28 with 4-day history of nausea, vomiting, diarrhea, fatigue, malaise, cough, shortness of breath, fevers. Her co worker had testeed positive for COVID 19 and she was tested due to known expousre and ongoing symptoms. She tested negative with AG testing and PCR. She was noted to have Diabetic ketoacidosis which resolved after insulind rip and then transition to s/c insulin. on 05/02 blood cultures were reported as positive 2 out of 4 sets for Staph aureus per preliminary manual testing by micro lab, however today identified eventually as an error result and confrimed via microscan to be CoNS, likely to represnt a contaminant especially given no corresponding signs or symptoms to suggest disseminated staphylococcal illness. Blood cx from 05/01 remain negative to date. Patient feels well on day of discharge, eager to return home. Echo was performed with erronous identification of S. aureus, no valvular abnormalities noted. She devloped some redness around iv site over left neck for which venous duplex was perfromed- no signs of DVT or septic thrombophlebitis. Physical Exam Narrative: EXAM NARRATIVE: GEN: Awake, alert and oriented, no acute distress CVS: S1S2 N RS: CTA B/L Abd: Soft, nt/nd , bs+ FILLING TECHNICIAN: no focal neuro deficits Discharge Data Data Completed and Pending: Completed Studies During Hospitalization Category Date Time Status XR chest 1V sunny ble [id number] Stat Exams 04/28/20 14:56 Completed CV echo complete* 80230 Routine Ultrasound 05/01/20 11:50 [place] [address] Routin e Ultrasound 05/01/20 11:50 Completed Pending at discharge Category Date Time Status ABG ONLY [Arteria l Blood Gas W/O Co ox] Stat Lab 04/28/20 20:20 Results Arterial Blood Ga s W/O Coox Stat Lab 04/28/20 19:32 Ordered Blood Culture Sta t Lab 04/28/20 20:29 Results Blood Culture Sta t Lab 05/01/20 13:52 Results Interleukin 6 (IL -6) Serum Stat Lab 04/28/20 20:27 Received Labs from last 24 hours 05/02/20 05/02/20 05/02/20 12:51 11:13 06:44 WBC RBC Hgb Hct MCV MCH MCHC RDW Plt Count MPV Neut % (Auto) Lymph % (Auto) [place] % (Auto) Eos % (Auto) Baso % (Auto) Neut # (Auto) Lymph # (Auto) [place] # (Auto) Eos # (Auto) Baso # (Auto) Nucleated RBC % (a uto) Nucleated RBCs # Sodium Potassium Chloride Carbon Dioxide Anion Gap BUN Creatinine GFR Calculation Glucose POC Glucose 171 126 Calculated Osmolal ity Calcium Vancomycin Trough 18.3 H 05/02/20 05/02/20 04:52 04:52 WBC 7.3 RBC 4.48 Hgb 13.8 Hct 41.9 MCV 93.5 MCH 30.8 MCHC 32.9 RDW 11.3 L Plt Count 259 MPV 10.8 H Neut % (Auto) 51.6 Lymph % (Auto) 38.4 [place] % (Auto) 7.3 Eos % (Auto) 1.2 Baso % (Auto) 0.5 Neut # (Auto) 3.77 Lymph # (Auto) 2.8 [place] # (Auto) 0.5 Eos # (Auto) 0.1 Baso # (Auto) 0.0 Nucleated RBC % (a uto) 0 Nucleated RBCs # 0.0 Sodium 142 Potassium 3.9 Chloride 102 Carbon Dioxide 28 Anion Gap 15.9 BUN 10 Creatinine 0.6 GFR Calculation 122.8 Glucose 157 H POC Glucose Calculated Osmolal ity 296 H Calcium 9.9 Vancomycin Trough Vitals: Last Vital Signs Temp 98.6 F 05/02/20 16:00 Pulse 87 05/02/20 16:00 Resp 16 05/02/20 16:00 BP 123/82 05/02/20 16:00 Pulse Ox 98 05/02/20 16:00 Discharge Plan Discharge Patient Disposition: Home Condition: Stable Prescriptions: Continued insulin lispro [Humalog KwikPen Insulin] 100 unit/mL insulin pen 5 unit SUBCUT TID Qty: 15 RF: 0 Lantus Solostar U-100 Insulin 100 unit/mL (3 mL) insulin pen 25 unit SUBCUT BID RF: 0 Discharge Orders: Discharge Order (Routine); Ordered 05/02/20 Ordered By: Anne Kauffman Referrals: Francisca Pineda DO [Primary Care Provider] - 05/05/20 8:30 am (hospital discharge follow up for DKA) Discharge Diet: Usual diet and Diabetic Discharge Activity: Resume usual activity Patient Instructions: Diabetic Ketoacidosis (GEN), Diabetes Mellitus Type 1 in Adults (GEN), Staphylococcus Aureus Infection Discharge Date/Time: 05/02/20 16:52 Discharge Attestations Time Spent in Discharge Care*: greater than 30 min Specific Discharge Activities: Specific discharge activities: educating patient, documenting/other paperwork and evaluating patient/reviewing data Quality Metrics Clinical Quality Measures During this hospital stay, did patient experience: None Coding Level of Care Code Acute Pie [place] for Chg Fwd Diagnoses Diabetic ketoacidosis E11.10 Exposure to COVID-19 virus Z20.828 Type 1 diabetes E10.9 Acute kidney injury N17.9 Diarrhea R19.7
[2020-05-03 23:57] LABS: Interleukin 6 (IL-6) Serum 11.85 pg/mL (<5.00)
[2020-05-06 16:33] LABS: ABG PCO2 11.9 mmHg (35-45); Blood Gas CCRB Time 1720
== END 2020-05-02 16:52 | disposition home or self-care (01) | DRG 638 ==
LOC: ER 19:01 → ICU 19:18 → MEDSURG 04-30 20:17
PROVIDERS: Family Medicine; Nurse Practitioner Family; Admitting Provider Internal Medicine; PCP Internal Medicine; Visit Provider Student in an Organized Health Care Education/Training Program
DX: E10.10 Type 1 diabetes mellitus with ketoacidosis without coma (principal); N17.9 Acute kidney failure, unspecified; F32.9 Major depressive disorder, single episode, unspecified; F17.210 Nicotine dependence, cigarettes, uncomplicated; R19.7 Diarrhea, unspecified; M79.89 Other specified soft tissue disorders; Z20.828 Contact with and (suspected) exposure to other viral communicable diseases
CPT/HCPCS: 12345; 36415; 36416; 36592; 36600; 71045; 80048; 80051; 80053; 80202; 81001; 82009; 82728; 82803; 82810; 82962; 83520; 83605; 83615; 83690; 83735; 83986; 84100; 84145; 84702; 85025; 85378; 85384; 86140; 87040; 87077; 87426; 87635; 87641; 87804; 93306; 93971; 94664; 96372; 96375; 99283; J1650; J1815 ×2; J2060; J2405; J3370; J3475; J3480; J7030; J7050

== ENCOUNTER → 2020-05-17 08:11 | Outpatient (BNVA) | payer SELFPAY | PROVIDERS: PCP Internal Medicine; Referring Provider Nurse Practitioner Family; Visit Provider Internal Medicine | DX: E10.649 Type 1 diabetes mellitus with hypoglycemia without coma (principal); E10.65 Type 1 diabetes mellitus with hyperglycemia; F32.89 Other specified depressive episodes | CPT/HCPCS: 99204 ==

== ENCOUNTER 2022-07-29 14:30 | Outpatient (CLI) | payer BC, MEDICAID, SELFPAY | END 2022-07-29 14:31 | disposition home or self-care (01) | LOC: SLEEP 07-30 09:06 | PROVIDERS: PCP Nurse Practitioner Family; Visit Provider Nurse Practitioner Family | DX: G47.10 Hypersomnia, unspecified (principal) | CPT/HCPCS: 81025; 84315; G0399 ==

== ENCOUNTER 2022-09-05 09:25 | Outpatient (CLI) | payer BC, MEDICAID, SELFPAY ==
--- NOTE | 2022-09-05 09:59 | US_ITS ---
WS: [id number] EARLY OBSTETRICAL ULTRASOUND (<14 WEEKS). HISTORY: TYPE 1 DM/MULTIGRAVIDA IN 1ST TRIMESTER COMPARISON: None available. Single intrauterine gestational sac is identified. Cardiac activity at 167 BPM. [place]-rump length young sures 4.8 cm which corresponds to a gestation of 11w4d. Normal-appearing yolk sac and amnion demonstr ated. No subchorionic hemorrhage. No free fluid. Normal size ovaries with no mass. US/US OB <= 14 weeks fetus [id number] IMPRESSION: 1. Single intrauterine gestation of 11 weeks 4 days with an EDC of 03/23/2023. 2. Normal cardiac activity.
== END 2022-09-05 09:26 | disposition home or self-care (01) ==
PROVIDERS: PCP Nurse Practitioner Family; Visit Provider Family Medicine
DX: O24.011 Pre-existing type 1 diabetes mellitus, in pregnancy, first trimester (principal); Z3A.11 11 weeks gestation of pregnancy
CPT/HCPCS: 76801

== ENCOUNTER 2023-01-22 17:57 | Outpatient (CLI) | payer BC, MEDICAID, SELFPAY ==
[2023-01-22 18:00] VITALS: BMI 30.6
[2023-01-22 18:24] VITALS: BP 130/78; PULSE 90
[2023-01-22 18:29] VITALS: RESP 17; TEMP 36.2
[2023-01-22 18:35] LABS: Nitrazine Paper, PH Inconclusive
[2023-01-22 18:44] LABS: Actim Prom Negative
[2023-01-22 18:48] LABS: Bilirubin Urine Neg (Negative); Blood Urine Neg (Negative); Glucose Urine UA Norm (Normal); Ketones Urine 1+ (Negative); Leukocyte Esterase Urine 2+ (Negative); Nitrate Urine Negative (Negative); Protein Urine Neg (Negative); RBC Urine 0-4 /hpf (0-2); Squamous Epithelial Cell Urine 40-55 /hpf (0-5); Urine Appearance Cloudy (CLEAR); Urine Color Yellow (Yellow); Urobilinogen Urine Norm (Negative); WBC Urine 15-25 /hpf (0-5); pH Urine 7 (5-7)
[2023-01-22 18:49] LABS: Add Urine Culture? No; Amorphous Sediment Urine 1+ /hpf; Bacteria Urine TR /hpf; Mucus Urine 2+ /hpf
[2023-01-22] MEDS: lactated ringers 1,000 ML 999 ML IV (19:45)
[2023-01-22 19:57] VITALS: BP 135/79; PULSE 96
[2023-01-22 20:39] LABS: Basophils % 0.3 %; Eosinophils % 0.3 %; Hematocrit 38.5 % (37.0-47.0); Hemoglobin 13.4 g/dL (11.5-15.3); Lymphocytes % 23.9 %; Mean Corpuscular HGB Conc 34.8 g/dL (30.0-36.0); Mean Corpuscular Hemoglobin 31.7 pg (28.0-34.0); Monocytes # 0.9 10^3/uL (0.2-0.9); Monocytes % 7.5 %; Neutrophils # 8.02 10^3/uL (1.8-7.7); Nucleated Red Blood Cells % 0 %; Platelet Count 198 10^3/cmm (130-400); Red Blood Count 4.23 10^6/uL (4.1-5.3); Red Cell Distribution Width 12.9 % (12.1-15.1); White Blood Count 12.4 10^3/uL (4.0-10.0)
[2023-01-22 20:43] LABS: Bilirubin Urine Neg (Negative); Blood Urine Neg (Negative); Glucose Urine UA Norm (Normal); Ketones Urine Negative (Negative); Leukocyte Esterase Urine Negative (Negative); Nitrate Urine Negative (Negative); Protein Urine Neg (Negative); Squamous Epithelial Cell Urine 0-4 /hpf (0-5); Urine Appearance Clear (CLEAR); Urine Color Yellow (Yellow); Urobilinogen Urine Norm (Negative); pH Urine 7 (5-7)
[2023-01-22 20:45] LABS: Add Urine Culture? No
[2023-01-22 20:54] LABS: Alanine Aminotransferase 19 U/L (0-33); Albumin Level 3.4 g/dL (3.5-5.2); Alkaline Phosphatase 106 U/L (35-105); Anion Gap 14.7 (5-19); Aspartate Amino Transferase 26 U/L (0-32); Blood Urea Nitrogen 4 mg/dL (6-20); Calcium 8.9 mg/dL (8.5-10.5); Carbon Dioxide 21 mmol/L (22-29); Chloride 105 mmol/L (98-107); Globulin 2.8 g/dL (1.3-4.6); Glomerular Filtration Rate 191.5 mL/min (90-130); Glucose 54 mg/dL (65-115); Osmolality Calculated 278 mOsm/kg (285-295); Potassium 3.7 mmol/L (3.5-5.1); Sodium 137 mmol/L (136-145); Total Bilirubin 0.2 mg/dL (0.15-1.2); Total Protein 6.2 g/dL (6.6-8.7)
[2023-01-22 21:09] VITALS: BP 120/76; PULSE 82
--- NOTE | 2023-01-22 21:14 | PC.NURSE ---
Called in Flagyl 500mg BID x7days to [facility] pharmacy.
== END 2023-01-22 21:30 | disposition home or self-care (01) ==
LOC: OPOB 18:03 → OBGYN 18:04
PROVIDERS: PCP Nurse Practitioner Family; Visit Provider Family Medicine
DX: O26.899 Other specified pregnancy related conditions, unspecified trimester (principal); N89.8 Other specified noninflammatory disorders of vagina; Z3A.00 Weeks of gestation of pregnancy not specified
CPT/HCPCS: 36415; 59025; 80053; 81001; 83986; 84112; 85025; 87086; 87210; 99211; J7120

== ENCOUNTER 2023-02-06 12:43 | Outpatient (CLI) | payer BC, MEDICAID, SELFPAY ==
[2023-02-06] VITALS (10 sets, daily range): BP systolic 103–130; BP diastolic 64–92; PULSE 76–95; TEMP 35.8; BMI 31.1
[2023-02-06] MEDS: lactated ringers 1,000 ML 999 ML IV (14:22)
== END 2023-02-06 15:33 | disposition home or self-care (01) ==
LOC: OPOB 12:49 → OBGYN 12:50
PROVIDERS: PCP Nurse Practitioner Family; Visit Provider Family Medicine
DX: O26.899 Other specified pregnancy related conditions, unspecified trimester (principal); M54.9 Dorsalgia, unspecified; Z3A.00 Weeks of gestation of pregnancy not specified
CPT/HCPCS: 59025; 99211; J7120

== ENCOUNTER 2023-02-08 12:31 | Outpatient (CLI) | payer BC, MEDICAID, SELFPAY ==
[2023-02-08] VITALS (10 sets, daily range): BP systolic 100–123; BP diastolic 65–81; PULSE 73–88; RESP 16
[2023-02-08 13:56] LABS: Basophils % 0.3 %; Eosinophils % 0.1 %; Hematocrit 38.2 % (37.0-47.0); Hemoglobin 12.9 g/dL (11.5-15.3); Lymphocytes # 2.2 10^3/uL (0.8-4.8); Lymphocytes % 24.7 %; Mean Corpuscular HGB Conc 33.8 g/dL (30.0-36.0); Mean Corpuscular Hemoglobin 30.8 pg (28.0-34.0); Mean Corpuscular Volume 91.2 fl (81-99); Mean Platelet Volume 12.3 fL (7.4-10.4); Monocytes # 0.7 10^3/uL (0.2-0.9); Monocytes % 7.7 %; Neutrophils # 5.83 10^3/uL (1.8-7.7); Neutrophils % 66.3 %; Nucleated Red Blood Cells % 0 %; Platelet Count 162 10^3/cmm (130-400); Red Blood Count 4.19 10^6/uL (4.1-5.3); Red Cell Distribution Width 12.9 % (12.1-15.1); White Blood Count 8.8 10^3/uL (4.0-10.0)
[2023-02-08 14:09] LABS: Bilirubin Urine Neg (Negative); Blood Urine Neg (Negative); Glucose Urine UA Norm (Normal); Ketones Urine 2+ (Negative); Leukocyte Esterase Urine 2+ (Negative); Nitrate Urine Negative (Negative); Protein Urine Trace (Negative); Specific Gravity, Urine 1.005 (1.005-1.030); Urine Appearance SL Hazy (CLEAR); Urine Color Straw (Yellow); Urobilinogen Urine Norm (Negative); pH Urine 7 (5-7)
[2023-02-08 14:10] LABS: Add Urine Culture? No; Bacteria Urine 2+ /hpf; Squamous Epithelial Cell Urine 15-25 /hpf (0-5)
[2023-02-08 14:18] LABS: Alanine Aminotransferase 26 U/L (0-33); Albumin Level 3.3 g/dL (3.5-5.2); Alkaline Phosphatase 97 U/L (35-105); Aspartate Amino Transferase 30 U/L (0-32); Blood Urea Nitrogen 5 mg/dL (6-20); Calcium 8.5 mg/dL (8.5-10.5); Carbon Dioxide 20 mmol/L (22-29); Chloride 106 mmol/L (98-107); Globulin 2.5 g/dL (1.3-4.6); Glucose 81 mg/dL (65-115); Osmolality Calculated 282 mOsm/kg (285-295); Sodium 138 mmol/L (136-145); Total Bilirubin 0.3 mg/dL (0.15-1.2); Total Protein 5.8 g/dL (6.6-8.7)
== END 2023-02-08 16:10 | disposition home or self-care (01) ==
LOC: OPOB 12:36 → OBGYN 12:51
PROVIDERS: Family Medicine; PCP Nurse Practitioner Family; Visit Provider Family Medicine
DX: O26.899 Other specified pregnancy related conditions, unspecified trimester (principal); E16.2 Hypoglycemia, unspecified; Z3A.00 Weeks of gestation of pregnancy not specified
CPT/HCPCS: 36415; 59025; 80053; 81001; 85025; 99211

== ENCOUNTER 2023-02-12 12:49 | Outpatient (CLI) | payer BC, MEDICAID, SELFPAY ==
[2023-02-12] VITALS (16 sets, daily range): BP systolic 112–141; BP diastolic 60–89; PULSE 79–107; RESP 16–18; TEMP 35.9; O2SAT 100; BMI 30.2
[2023-02-12] MEDS: lactated ringers 1,000 ML 999 ML IV (13:30)
[2023-02-12 13:37] LABS: Bilirubin Urine Neg (Negative); Blood Urine Neg (Negative); Glucose Urine UA Norm (Normal); Ketones Urine 3+ (Negative); Nitrate Urine Negative (Negative); Protein Urine 1+ (Negative); Urine Appearance Hazy (CLEAR); Urine Color Yellow (Yellow); Urobilinogen Urine Norm (Negative); pH Urine 5 (5-7)
[2023-02-12 13:38] LABS: Leukocyte Esterase Urine Trace (Negative)
[2023-02-12 13:39] LABS: Add Urine Culture? No; Bacteria Urine 1+ /hpf; Mucus Urine 1+ /hpf; RBC Urine 0-4 /hpf (0-2); Squamous Epithelial Cell Urine 25-40 /hpf (0-5)
[2023-02-12] MEDS: ondansetron 2 mg/ML SDV 2 mL 4 MG IVP (13:59)
[2023-02-12] MEDS: sodium chloride 0.9% 1,000 ML 999 ML IV (14:44)
--- NOTE | 2023-02-12 14:50 | USR_ITS ---
PROCEDURE INFORMATION: Exam: US Biophysical Profile Without Non-Stress Test Exam date and time: 02/12/2023 3:01 PM Age: 27 years old Clinical indication: Screening exam; Routine US screening of fetus; Second trimester (14 weeks 0 days to 27 weeks 6 days); ; Additional info: Poor tracing TECHNIQUE: Imaging protocol: US biophysical profile without non-stress testing. COMPARISON: US OB <= 14 weeks fetus [id number] 09/05/2022 10:14 AM FINDINGS: heart rate: 167 bpm BIOPHYSICAL PROFILE: breathing movement (BPP): 0 out of 2. body movement (BPP): 2 out of 2. tone (BPP): 2 out of 2. Amniotic fluid (BPP): 2 out of 2. MATERNAL ANATOMY: Cervix: Cervical length measures 3.1 cm. US/US OB BPP wo NST [id number] IMPRESSION: Biophysical profile score equals 6/8 with 0 for breathing.
[2023-02-12 15:13] LABS: Albumin Level 3.8 g/dL (3.5-5.2); Blood Urea Nitrogen 6 mg/dL (6-20); Calcium 9.8 mg/dL (8.5-10.5); Chloride 101 mmol/L (98-107); Globulin 2.5 g/dL (1.3-4.6); Total Bilirubin 0.4 mg/dL (0.15-1.2)
[2023-02-12 15:40] LABS: Alanine Aminotransferase 39 U/L (0-33); Alkaline Phosphatase 139 U/L (35-105); Aspartate Amino Transferase 39 U/L (0-32); Glucose 133 mg/dL (65-115); Osmolality Calculated 272 mOsm/kg (285-295); Sodium 131 mmol/L (136-145); Total Protein 6.3 g/dL (6.6-8.7)
[2023-02-12 15:42] LABS: Anion Gap 29.1 (5-19); Carbon Dioxide 6 mmol/L (22-29); Potassium 5.1 mmol/L (3.5-5.1)
[2023-02-12] MEDS: promethazine 25 mg/mL SDV 1 mL IM (17:03)
--- NOTE | 2023-02-12 17:57 | P.TS_ITS ---
Transfer Summary Providers Date of Admission: 02/12/23 Date of Discharge/Transfer: 02/12/23 Attending Provider at Admission: Diana Whitten MD Attending Provider at Transfer: Diana Whitten MD Primary Care Provider: ASHLEY Chase MD Transfer Plans: Anticipated date of transfer: 02/12/23 . Receiving Facility: [facility] . Receiving Provider: Dr. Jordan Rehman . Diagnoses at Discharge Discharge Diagnosis (1) Intractable vomiting with nausea: Details from hospital stay: Combined with her constipation and back pain she will need further imaging to rule out bowel obstruction. She does have a metabolic acidosis, most likley due to dehydration and anorexia x 3 days. Consider also DKA but less likely given her consistently controlled sugars. We will cont her on NS at 200 mL /hr during transfer. Status: Acute (2) Left low back pain: Details from hospital stay: All 3 urines we have gotten from her have been contaminated so we will get a cath urine. She consistently has not had any CVA or renal tenderness to suggest Pyelonephritis but this is still in the differential. We are awaiting CBC to be drawn. She is still rating her pain a 7 out of 10 and appears to be in discomfort so we will go ahead and give a dose of morphine. She did not report any relief with tramadol outpatient. Status: Acute (3) Constipation during in third trimester: Status: Acute (4) Type 1 diabetes: Status: Acute (5) 34 weeks gestation of : Details from hospital stay: 34w1d with CHAKA 03/25/23 Status: Acute (6) Hx of section complicating : Details from hospital stay: for pre-eclampsia Status: Acute Reason for Visit Reason for Visit kidney issues, nausea and vomiting Hospital Course Hospital Course This is a 27-year-old G4, P1 at 34 weeks 1 day gestation, type I diabetic, who was seen in clinic 2 days ago complaining of left back pain. She was evaluated there by myself and had no CVA tenderness, no spinal tenderness, no paraspinal tenderness but was rating her pain a 7 out of 10, localized to the left flank. Urinalysis and urine culture were sent. They were both contaminated with mixed bacteria, but not particularly indicative of infection, with trace leuk and no nitrates. She underwent a renal ultrasound 1 day ago which showed some right hydronephrosis consistent with , no left hydronephrosis. The was a left renal pelvis stone without evidence of blockage. The patient has not had a bowel movement for 4 days. Her last bowel movement was on Friday and she said it was small like rabbit terds . On Friday she was advised to do a bowel cleanout but only took 1-2 doses of MOM. She says she did keep it down but did not have bm. She states she has not eaten in the past 3 days. Her vomiting began about 2 days ago. She takes both Lantus and a short acting insulin but had not needed to take any doses for the past 2 days. She states that she did finally take some last evening because her sugar was 150. Her blood sugar here has been 130. She was difficult to draw blood from and required multiple tries by more experienced personnel to obtain labs. Initial labs are as below. Repeat labs ordered STAT are waiting to be drawn. The patient has been given 2 L of fluid (1 liter LR, 1 liter NS) and a dose of Zofran. Two hours post zofran she was wretching and was given a dose of Phenergan. The phernergan has now made her drowsy. heart tones have been labile. There have been some brief periods of minimal variablility but there is mostly moderate variability. No accelerations, some variable decelerations, periods of tachycardia in the 170s to 180s. Biophysical profile was obtained and was 6 out of 8 for lack of breathing movement. Currently heart tones appear to be 160s with moderate variability. Still no accelaerations but no decelerations. The patient sees MFM at [facility] in [place]. I spoke with Dr. Jordan Rehman at [facility] who is willing to accept the patient in transfer. Physical Exam Const: OTHER: She is pale and tired appearing Lying on her side in bed with a family member rubbing her back, lips are dry HENMT: COMMON NORMALS: normocephalic and atraumatic HEAD & SCALP: normocephalic and atraumatic Eye: COMMON NORMALS: Equal, round and reactive pupils present and EOMs intact bilaterally PUPIL: Yes Equal, round and reactive pupils present Chest: COMMONS NORMALS: normal inspection of the chest Resp: COMMON NORMALS: normal respiratory effort and clear to auscultation bilaterally AUSCULTATION: clear to auscultation bilaterally Cardio: COMMON NORMALS: regular rate and regular rhythm RATE: regular rate RHYTHM: regular rhythm GI: OTHER: Gravid, nontender to palpation (though patient states she has generalized tenderness) no right upper quadrant tenderness, no epigastric tenderness Back/Pelvis: OTHER: No CVA tenderness, patient has some mild left back tenderness around the iliac crest Extremity: NARRATIVE EXTREMITY EXAM: No calf tenderness no edema TS Data Studies Completed and Pending Pending at discharge Category Date Time Status CBC Auto Diff [Complete Blood Count w/Auto] Stat Lab 02/12/23 17:27 Ordered CMP [Comprehensive Metabolic Panel] Stat Lab 02/12/23 17:27 Ordered Labs from last 24 hours 02/12/23 02/12/23 14:41 13:00 Sodium 131 L Potassium 5.1 Chloride 101 Carbon Dioxide 6 L* Anion Gap 29.1 H BUN 6 Creatinine 0.8 GFR Calculation 86.0 L Glucose 133 H Calculated Osmolality 272 L Calcium 9.8 Total Bilirubin 0.4 AST 39 H ALT 39 H Alkaline Phosphatase 139 H Total Protein 6.3 L Albumin 3.8 Globulin 2.5 Urine Color Yellow Urine Appearance Hazy A Urine pH 5 Ur Specific Hol[place] 1.030 Urine Protein 1+ H Urine Glucose (UA) Norm Urine Ketones 3+ H Urine Blood Neg Urine Nitrate Negative Urine Bilirubin Neg Urine Urobilinogen Norm Ur Leukocyte Esterase Trace H Urine RBC 0-4 H Urine WBC 5-10 H Ur Squamous Epith Cells 25-40 H Amorphous Sediment Not Reportable Urine Bacteria 1+ H Urine Mucus 1+ Completed Studies During Hospitalization Category Date Time Status US OB BPP wo NST 17272 Stat Ultrasound 02/12/23 14:50 Completed Laboratory Last Values Sodium 131 mmol/L (136-145) L 02/12/23 14:41 Potassium 5.1 mmol/L (3.5-5.1) 02/12/23 14:41 Chloride 101 mmol/L (98-107) 02/12/23 14:41 Carbon Dioxide 6 mmol/L (22-29) L* 02/12/23 14:41 Anion Gap 29.1 (5-19) H 02/12/23 14:41 BUN 6 mg/dL (6-20) 02/12/23 14:41 Creatinine 0.8 mg/dL (0.5-0.9) 02/12/23 14:41 GFR Calculation 86.0 mL/min (90-130) L 02/12/23 14:41 Glucose 133 mg/dL (65-115) H 02/12/23 14:41 Calculated Osmolality 272 mOsm/kg (285-295) L 02/12/23 14:41 Calcium 9.8 mg/dL (8.5-10.5) 02/12/23 14:41 Total Bilirubin 0.4 mg/dL (0.15-1.2) 02/12/23 14:41 AST 39 U/L (0-32) H 02/12/23 14:41 ALT 39 U/L (0-33) H 02/12/23 14:41 Alkaline Phosphatase 139 U/L (35-105) H 02/12/23 14:41 Total Protein 6.3 g/dL (6.6-8.7) L 02/12/23 14:41 Albumin 3.8 g/dL (3.5-5.2) 02/12/23 14:41 Globulin 2.5 g/dL (1.3-4.6) 02/12/23 14:41 Urine Color Yellow (Yellow) 02/12/23 13:00 Urine Appearance Hazy (CLEAR) A 02/12/23 13:00 Urine pH 5 (5-7) 02/12/23 13:00 Ur Specific [place] 1.030 (1.005-1.030) 02/12/23 13:00 Urine Protein 1+ (Negative) H 02/12/23 13:00 Urine Glucose (UA) Norm (Normal) 02/12/23 13:00 Urine Ketones 3+ (Negative) H 02/12/23 13:00 Urine Blood Neg (Negative) 02/12/23 13:00 Urine Nitrate Negative (Negative) 02/12/23 13:00 Urine Bilirubin Neg (Negative) 02/12/23 13:00 Urine Urobilinogen Norm mg/dL (Negative) 02/12/23 13:00 Ur Leukocyte Esterase Trace (Negative) H 02/12/23 13:00 Urine RBC 0-4 /hpf (0-2) H 02/12/23 13:00 Urine WBC 5-10 /hpf (0-5) H 02/12/23 13:00 Ur Squamous Epith Cells 25-40 /hpf (0-5) H 02/12/23 13:00 Amorphous Sediment Not Reportable 02/12/23 13:00 Urine Bacteria 1+ /hpf (NONE) H 02/12/23 13:00 Urine Mucus 1+ /hpf 02/12/23 13:00 Radiology Impressions Obstetrics US/Biophysical Profile 02/12/23 14:50 IMPRESSION: Biophysical profile score equals 6/8 with 0 for breathing. ADDENDUM: 02/12/23 4036 THIS REPORT CONTAINS FINDINGS THAT MAY BE CRITICAL TO PATIENT CARE. The findings were verbally communicated via telephone conference with COPY CENTER OPERATOR Thais Clarke at 5:31 PM CDT on 02/12/2023. The findings were acknowledged and understood. Recent Clincial Data Last Vital Signs Temp 96.6 F L 02/12/23 14:02 Pulse 94 02/12/23 17:39 BP 135/88 02/12/23 17:39 Vital Signs Temp Pulse BP 02/12/23 17:39 94 135/88 02/12/23 17:20 80 135/80 02/12/23 16:59 82 121/64 02/12/23 16:39 84 115/75 02/12/23 16:19 86 117/60 02/12/23 14:02 96.6 F L 02/12/23 13:59 89 135/89 02/12/23 13:39 93 130/84 02/12/23 13:19 107 H 130/85 02/12/23 13:03 107 H 133/82 Intake & Output/Weight 02/10/23 02/11/23 02/12/23 02/13/23 06:59 06:59 06:59 06:59 Weight 77.564 kg Vitals Last Vital Signs Temp 96.6 F L 02/12/23 14:02 Pulse 94 02/12/23 17:39 BP 135/88 02/12/23 17:39 TS Medications Medications Fentanyl (Fentanyl 50 Mcg/Ml Inj 2ml) 25 - 100 mcg IVP Q1H PRN PRN Reason: SEVERE PAIN Sodium Chloride (Sodium Chloride 0.9%) 1,000 mls @ 125 mls/hr IV .Q8H DIEGO Promethazine HCl (Promethazine 25 Mg/Ml Sdv 1 Ml) 25 mg IM Q6H PRN PRN Reason: NAUSEA Last Admin: 02/12/23 17:03 Dose: 25 mg Discontinued Medications Lactated Ringer's (Lactated Ringers) 1,000 mls @ 999 mls/hr IV .Q1H1M ONE Stop: 02/12/23 14:13 Last Admin: 02/12/23 13:30 Dose: 999 mls/hr Sodium Chloride (Sodium Chloride 0.9%) 1,000 mls @ 999 mls/hr IV .Q1H1M ONE Stop: 02/12/23 14:40 Last Admin: 02/12/23 14:44 Dose: 999 mls/hr Ondansetron HCl (Ondansetron 2 Mg/Ml Sdv 2 Ml) 4 mg IVP ONCE ONE Stop: 02/12/23 13:42 Last Admin: 02/12/23 13:59 Dose: 4 mg Allergies No Known Allergies Allergy (Verified 08/30/22 08:12) Home Medications insulin glargine 100 unit/mL (3 mL) subcutaneous pen (Lantus Solostar U-100 Insulin) 25 unit SUBCUT BID 04/28/20 [History Confirmed 08/30/22] insulin lispro 100 unit/mL subcutaneous pen (Humalog KwikPen (U-100) Insulin) 5 unit SUBCUT TID 05/17/20 [History Confirmed 08/30/22] buspirone 15 mg tablet 15 mg PO TID 07/29/22 [History Confirmed 08/30/22] divalproex 500 mg tablet,delayed release 500 mg PO ONCE 07/29/22 [History Confirmed 08/30/22] Discharge Plan Discharge Patient Disposition: Home Prescriptions: No Action insulin lispro [Humalog KwikPen Insulin] 100 unit/mL insulin pen 5 unit SUBCUT TID Patient Comments: Patient is on a sliding scale. Rx Instructions: Continue carb counting dose buspirone 15 mg tablet 15 mg PO TID divalproex 500 mg tablet,delayed release (DR/EC) 500 mg PO ONCE Lantus Solostar U-100 Insulin 100 unit/mL (3 mL) insulin pen 25 unit SUBCUT BID Transfer Attestations Time Spent in Transfer Care: greater than 30 min Quality Metrics Clinical Quality Measures [ No reported AMI, CVA or VTE this stay] Coding Level of Care Code Acute Code for Chg Fwd Diagnoses Intractable vomiting with nausea R11.2 Left low back pain M54.50 Constipation during in third trimester O99.613; K59.00 Type 1 diabetes E10.9 34 weeks gestation of Z3A.34 Hx of section complicating O34.219
[2023-02-12] MEDS: sodium chloride 0.9% 1,000 ML 125 ML IV (18:20)
[2023-02-12] MEDS: morphine 4 mg/mL SDV 1 mL 1 MG IVP (18:41)
[2023-02-12 19:04] LABS: Basophils % 0.3 %; Hematocrit 45.4 % (37.0-47.0); Hemoglobin 15.2 g/dL (11.5-15.3); Lymphocytes # 1.8 10^3/uL (0.8-4.8); Lymphocytes % 14.4 %; Mean Corpuscular HGB Conc 33.5 g/dL (30.0-36.0); Mean Corpuscular Hemoglobin 30.8 pg (28.0-34.0); Mean Corpuscular Volume 91.9 fl (81-99); Mean Platelet Volume 12.2 fL (7.4-10.4); Monocytes # 0.7 10^3/uL (0.2-0.9); Monocytes % 5.6 %; Neutrophils # 9.97 10^3/uL (1.8-7.7); Neutrophils % 78.7 %; Nucleated Red Blood Cells % 0 %; Platelet Count 220 10^3/cmm (130-400); Red Blood Count 4.94 10^6/uL (4.1-5.3); Red Cell Distribution Width 13.3 % (12.1-15.1); White Blood Count 12.7 10^3/uL (4.0-10.0)
[2023-02-12 19:12] LABS: Add Urine Microscopic? NO; Charge for UA Resulting for Rev
[2023-02-12 19:15] LABS: Bilirubin Urine Neg (Negative); Blood Urine Neg (Negative); Glucose Urine UA Norm (Normal); Ketones Urine 3+ (Negative); Leukocyte Esterase Urine Negative (Negative); Nitrate Urine Negative (Negative); Protein Urine Neg (Negative); Specific Gravity, Urine 1.025 (1.005-1.030); Urine Appearance Clear (CLEAR); Urine Color Yellow (Yellow); Urobilinogen Urine Norm (Negative); pH Urine 5 (5-7)
[2023-02-12 19:29] LABS: Alanine Aminotransferase 37 U/L (0-33); Albumin Level 3.7 g/dL (3.5-5.2); Alkaline Phosphatase 147 U/L (35-105); Anion Gap 28.6 (5-19); Aspartate Amino Transferase 38 U/L (0-32); Blood Urea Nitrogen 6 mg/dL (6-20); Calcium 9.5 mg/dL (8.5-10.5); Chloride 103 mmol/L (98-107); Globulin 3.2 g/dL (1.3-4.6); Glucose 163 mg/dL (65-115); Osmolality Calculated 277 mOsm/kg (285-295); Potassium 4.6 mmol/L (3.5-5.1); Sodium 133 mmol/L (136-145); Total Bilirubin 0.4 mg/dL (0.15-1.2); Total Protein 6.9 g/dL (6.6-8.7)
[2023-02-12 19:31] LABS: Carbon Dioxide 6 mmol/L (22-29)
[2023-02-12] MEDS: betamethasone susp 6 mg/mL 5 mL 12 MG IM (19:46)
--- NOTE | 2023-02-12 19:49 | PC.NURSE ---
Per doctor Fish patient administered 30 units of personal lantus with blood glucose reading of 179 @1944. Per doctor Fish patient to drink 4oz apple juice Per doctor Fish patient to admin personal humalog 5 units @ 1952
== END 2023-02-12 20:05 | disposition intermediate care facility (04) ==
LOC: OPOB 12:51 → OBGYN 12:59
PROVIDERS: PCP Nurse Practitioner Family; Visit Provider Family Medicine
DX: O24.013 Pre-existing type 1 diabetes mellitus, in pregnancy, third trimester (principal); E10.9 Type 1 diabetes mellitus without complications; O99.613 Diseases of the digestive system complicating pregnancy, third trimester; R11.2 Nausea with vomiting, unspecified; K59.00 Constipation, unspecified; O26.899 Other specified pregnancy related conditions, unspecified trimester; M54.50 Low back pain, unspecified; Z3A.34 34 weeks gestation of pregnancy; Z79.4 Long term (current) use of insulin; E87.20 Acidosis, unspecified; N20.0 Calculus of kidney
CPT/HCPCS: 36415; 59025; 76819; 80053; 81001; 81003; 85025; 96372; 96374; 96375; 99211; J0702; J2270; J2405; J2550; J7030; J7120

== ENCOUNTER 2023-07-29 15:53 | Outpatient (CLI) | payer BC, MEDICAID, SELFPAY ==
--- NOTE | 2023-07-29 16:00 | MR_ITS ---
WS: [id number] MRI CERVICAL SPINE NONCONTRAST HISTORY: M54.2 - Cervicalgia COMPARISON: None available. Technique: Multiplanar, multisequence noncontrast imaging of the cervical spine. Normal cervical alignment with no compression fracture or significant disc space narrowing. Signal within the cervical cord is normal. Visualized posterior fossa is unremarkable. Craniocervical junction, C1 and C2 relationship, odontoid process and soft tissues are normal. C2-C3: Normal. C3-C4: Normal. C4-C5: Normal. C5-C6: Normal. C6-C7: Normal. C7-T1: Normal. Paraspinal soft tissue are normal. Normal signal in the visualized vertebral and carotid arteries. IMPRESSION: Normal MRI C-spine.
== END 2023-07-29 15:54 | disposition home or self-care (01) ==
LOC: RAD 15:53
PROVIDERS: PCP Nurse Practitioner Family; Visit Provider Specialist
DX: M54.2 Cervicalgia (principal); R20.0 Anesthesia of skin
CPT/HCPCS: 72141

== ENCOUNTER 2023-09-02 19:20 | Emergency (ER) | payer BC, MEDICAID, SELFPAY ==
[2023-09-02 19:24] VITALS: BP 131/85; PULSE 76; RESP 16; TEMP 37; O2SAT 99; BMI 22.1
[2023-09-02 19:54] LABS: Basophils % 0.5 %; Eosinophils # 0.1 10^3/uL (0.0-0.8); Eosinophils % 0.8 %; Hematocrit 43.6 % (36-47); Lymphocytes # 2.8 10^3/uL (0.8-4.8); Mean Corpuscular HGB Conc 34.9 g/dL (30-55); Mean Corpuscular Hemoglobin 30.4 pg (27-33); Mean Corpuscular Volume 87.2 fl (85-98); Mean Platelet Volume 10.4 fL (7.4-10.4); Monocytes # 0.5 10^3/uL (0.2-0.9); Neutrophils # 2.66 10^3/uL (1.8-7.7); Neutrophils % 44.4 %; Nucleated Red Blood Cells % 0 %; Platelet Count 251 10^3/cmm (157-399); Red Cell Distribution Width 12.3 % (12.1-15.1)
[2023-09-02] MEDS: ondansetron 2 mg/ML SDV 2 mL 4 MG IVP (20:01)
[2023-09-02] MEDS: sodium chloride 0.9% 1,000 ML 999 ML IV (20:02)
[2023-09-02 20:13] LABS: Alanine Aminotransferase 19 U/L (0-33); Albumin Level 4.6 g/dL (3.5-5.2); Alkaline Phosphatase 119 U/L (35-105); Anion Gap 13.6 (5-19); Aspartate Amino Transferase 18 U/L (0-32); Blood Urea Nitrogen 7 mg/dL (6-20); Calcium 9.6 mg/dL (8.5-10.5); Carbon Dioxide 26 mmol/L (22-29); Chloride 105 mmol/L (98-107); Globulin 2.8 g/dL (1.3-4.6); Glomerular Filtration Rate 146.9 mL/min (90-130); Glucose 96 mg/dL (65-115); Lipase 19 U/L (13-60); Osmolality Calculated 290 mOsm/kg (285-295); Potassium 3.6 mmol/L (3.5-5.1); Sodium 141 mmol/L (136-145); Total Bilirubin 0.4 mg/dL (0.15-1.2); Total Protein 7.4 g/dL (6.6-8.7)
[2023-09-02 20:18] LABS: HCG, Serum Qual Negative (Negative); Ketone (Acetest) Serum Negative (Negative)
--- NOTE | 2023-09-02 20:18 | ED_ITS ---
HPI - Nausea/Vomiting/Diarrhea 2 General: Chief complaint: Nausea/Vomiting/Diarrhea Stated complaint: type 1 diabetic, vomit 24hr+ with blood Time Seen by Provider: 09/02/23 19:39 Source: patient Mode of arrival: ambulatory Limitations: no limitations History of Present Illness: 20-year-old female is a type I diabetic states she has had vomiting throughout the day states she is feeling extremely nauseous while she states she is very concerned about going DKA states her glucose was 169 earlier though. Had some slight dizziness she denies any pain or fevers. Associated nausea: Yes Associated symtoms: Reports nausea; Denies chest pain, dysuria or headache(s) Review of Systems 2 Const: Denies: fever(s), chills, body aches or change in appetite Eyes: Denies: blurry vision or eye discomfort Card: Denies: chest pain Resp: Denies: dyspnea GI: Reports: nausea and vomiting; Denies: abdominal pain or diarrhea : Denies: dysuria Musc: Denies: neck pain or back pain Skin/Breast: Denies: rash Neuro: Denies: headache(s) PFSH ED 2 PFSH: Medical History Type 1 diabetes Depression Surgical History Previous section Family History Grandmother Breast cancer maternal Family history of thyroid problem maternal Grandfather Diabetes paternal Hypertension paternal Father Hypertension Denies family history of Colon cancer Ovarian cancer Heart disease Bleeding disorder Uterine cancer Stroke Hyperchloremia Social History Smoking and tobacco/nicotine status: current some day tobacco/nicotine user Substance/Drug Use: never Physical Exam 2 Const: COMMON NORMALS: no acute distress, patient oriented x3 and healthy appearing HENMT: COMMON NORMALS: normocephalic and atraumatic HEAD & SCALP: n ormocephalic and atraumatic Eye: COMMON NORMALS: Equal, round and reactive pupils present and EOMs intact bilaterally PUPIL: Yes Equal, round and reactive pupils present Neck/C-Spine: COMMON NORMALS: full ROM and supple Chest: COMMONS NORMALS: normal inspection of the chest and normal palpation of entire chest wall Resp: COMMON NORMALS: normal respiratory effort, No retractions, No use of accessory muscles and clear to auscultation bilaterally AUSCULTATION: clear to auscultation bilaterally Cardio: COMMON NORMALS: regular rate, regular rhythm and No murmurs present (Cardio) RATE: regular rate RHYTHM: regular rhythm GI: COMMON NORMALS: Normal to inspection, nondistended, normoactive bowel sounds present, Soft to palpation, non-tender and no masses PALPATION: Yes Soft to palpation Extremity: COMMON NORMALS: normal to inspection and full ROM Neuro: COMMON NORMALS: patient oriented x3, moves all extremities and no focal motor deficits Psych: COMMON NORMALS: mental status grossly normal, Normal thought process present and cooperative THOUGHT PROCESS: Normal thought process present Skin: COMMON NORMALS: no rashes or lesions noted and no wounds GENERAL SKIN EXAM: no rashes or lesions noted Course 2 Vital Signs: Vital signs: Vital Signs Temperature 98.6 F 09/02/23 19:24 Pulse Rate 76 09/02/23 19:24 Respiratory Rate 16 09/02/23 19:24 Blood Pressure 131/85 09/02/23 19:24 Pulse Oximetry 99 09/02/23 19:24 Oxygen Delivery Me thod Room Air 09/02/23 19:24 MDM - Nausea/Vomiting/Diarrhea Medical Decision Making Patient presents here with vomiting she is not in DKA she feels much improved here blood work is normal white count is normal she has no signs of acute surgical abdomen we will place her on Zofran for home she is follow-up with PCP and return if worsening. Medical Records I reviewed the patient's medical records. Lab Data I reviewed the patient's lab results. 09/02/23 19:42 09/02/23 19:42 Laboratory Results WBC 6.00 10^3/uL (3.29-11.43) 09/02/23 19:42 RBC 5.00 10^6/uL (3.85-5.65) 09/02/23 19:42 Hgb 15.20 g/dL (11.27-16.99) 09/02/23 19:42 Hct 43.6 % (36-47) 09/02/23 19:42 MCV 87.2 fl (85-98) 09/02/23 19:42 MCH 30.4 pg (27-33) 09/02/23 19: MCHC 34.9 g/dL (30-55) 09/02/23 19: RDW 12.3 % (12.1-15.1) 09/02/23 19: Plt Count 251 10^3/cmm (157-399) 09/02/23 19:42 MPV 10.4 fL (7.4-10.4) 09/02/23 19: Neut % (Auto) 44.4 % 09/02/23 19:42 Lymph % (Auto) 46.0 % 09/02/23 19:42 [place] % (Auto) 8.0 % 09/02/23 19: Eos % (Auto) 0.8 % 09/02/23 19: Baso % (Auto) 0.5 % 09/02/23 19: Neut # (Auto) 2.66 10^3/uL (1.8-7.7) 09/02/23 19: Lymph # (Auto) 2.8 10^3/uL (0.8-4.8) 09/02/23 19:42 [place] # (Auto) 0.5 10^3/uL (0.2-0.9) 09/02/23: Eos # (Auto) 0.1 10^3/uL (0.0-0.8) 09/02/23 19: Baso # (Auto) 0.0 10^3/uL (0.0-0.1) 09/02/23: Nucleated RBC % (auto) 0 % 09/02/23: Nucleated RBCs # 0.0 /100WBC 09/02/23 19:42 Specimen Type Arterial 09/02/23 20:15 Sample Site Brachial, left 09/02/23 20:15 ABG pH 7.42 (7.35-7.45) 09/02/23 20:15 ABG pCO2 38.4 mmHg (35-45) 09/02/23 20:15 ABG pO2 100.0 mmHg (80.0-100.0) 09/02/23 20:15 ABG PO2/FiO2 Ratio 0 09/02/23 20:15 ABG HCO3 24.8 mmol/L (22-26) 09/02/23 20:15 ABG Base Excess 0.4 mmol/L (-2.0-2.0) 09/02/23 20:15 Jasen Test Pos 09/02/23 20:15 Hematocrit 41.9 % (37-47) 09/02/23 20:15 O2 Delivery Device None 09/02/23 20:15 FiO2 21.0 % 09/02/23 20:15 Drug Clerk ID [email or web address] 09/02/23 20:15 Sodium 141 mmol/L (136-145) 09/02/23 19:42 Potassium 3.6 mmol/L (3.5-5.1) 09/02/23 19:42 Chloride 105 mmol/L (98-107) 09/02/23 19:42 Carbon Dioxide 26 mmol/L (22-29) 09/02/23 19:42 Anion Gap 13.6 (5-19) 09/02/23 19:42 BUN 7 mg/dL (6-20) 09/02/23 19:42 Creatinine 0.5 mg/dL (0.5-0.9) 09/02/23 19:42 GFR Calculation 146.9 mL/min (90-130) H 09/02/23 19:42 Glucose 96 mg/dL (65-115) 09/02/23 19:42 Calculated Osmolality 290 mOsm/kg (285-295) 09/02/23 19:42 Calcium 9.6 mg/dL (8.5-10.5) 09/02/23 19:42 Total Bilirubin 0.4 mg/dL (0.15-1.2) 09/02/23 19:42 AST 18 U/L (0-32) 09/02/23 19:42 ALT 19 U/L (0-33) 09/02/23 19:42 Alkaline Phosphatase 119 U/L (35-105) H 09/02/23 19:42 Total Protein 7.4 g/dL (6.6-8.7) 09/02/23 19:42 Albumin 4.6 g/dL (3.5-5.2) 09/02/23 19:42 Globulin 2.8 g/dL (1.3-4.6) 09/02/23 19:42 Lipase 19 U/L (13-60) 09/02/23 19:42 HCG, Qual Negative (Negative) 09/02/23 19:42 Serum Ketones Negative (Negative) 09/02/23 19:42 No radiology studies performed this visit Discharge Plan Discharge Patient Disposition: Home Clinical Impression: Vomiting Qualifiers: Vomiting type: unspecified Nausea presence: with nausea Qualified Code(s): R 11.2 - Nausea with vomiting, unspecified Condition: Stable Prescriptions: No Action insulin lispro [Humalog KwikPen Insulin] 100 unit/mL insulin pen 5 unit SUBCUT TID Patient Comments: Patient is on a sliding scale. Rx Instructions: Continue carb counting dose Trintellix 20 mg tablet 20 mg PO DAILY buspirone 15 mg tablet 15 mg PO TID Lantus Solostar U-100 Insulin 100 unit/mL (3 mL) insulin pen 25 unit SUBCUT BID Discharge Orders: Discharge ED (Routine); Ordered 09/02/23 Ordered By: Stefan Starr Referrals: Marcella Burton FNP [Primary Care Provider] - Discharge Diet: Advance as tolerated Discharge Activity: Resume usual activity Patient Instructions: Acute Nausea and Vomiting (ED) Coding Level of Care Code ED Account Services Coordinator for Melissa Quiroga
[2023-09-02 20:21] LABS: ABG PCO2 38.4 mmHg (35-45); ABG PH Result 7.42 (7.35-7.45); Arterial Blood Gas Hematocrit 41.9 % (37-47); Base Excess ABG 0.4 mmol/L (-2.0-2.0); Blood Gas Allen Test Pos; Blood Gas Sample Site Brachial, left; Blood Gas Sample Type Arterial; HCO3 ABG 24.8 mmol/L (22-26); PO2 FiO2 Ratio Arterial Blood 0
[2023-09-02] MEDS: diphenhydrAMINE 50 mg/mL SDV 1mL 25 MG IVP (20:30)
[2023-09-02] MEDS: metoclopramide 5 mg/mL SDV 2 mL IVP (20:30)
[2023-09-02 21:12] LABS: Glucose Point of Care 124 mg/dL (70-110)
[2023-09-02] MEDS: ondansetron 4 MG Tablet PO (21:46)
[2023-09-02 21:50] VITALS: BP 112/73; PULSE 66; RESP 16; O2SAT 100
[2023-09-02 21:51] VITALS: BP 112/73; PULSE 66; RESP 16; O2SAT 100
== END 2023-09-02 21:51 | disposition home or self-care (01) ==
PROVIDERS: Emergency Provider Emergency Medicine; PCP Nurse Practitioner Family
DX: R11.2 Nausea with vomiting, unspecified (principal); Z79.4 Long term (current) use of insulin; Z72.0 Tobacco use; E10.9 Type 1 diabetes mellitus without complications
CPT/HCPCS: 36416; 36600; 80053; 82009; 82803; 82962; 83690; 84703; 85025; 96361; 96374; 96375; 99284; J1200; J2405; J2765; J7030; Q0162

== ENCOUNTER 2023-12-21 00:38 | Emergency (ER) | payer BC, MEDICAID, SELFPAY ==
[2023-12-21 00:39] VITALS: BP 150/113; PULSE 145; RESP 20; TEMP 37.4; O2SAT 98; BMI 23.0
[2023-12-21] MEDS: ondansetron 4 MG Tablet PO (00:58)
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
[2023-12-21 01:00] LABS: Glucose Point of Care 340 mg/dL (70-110)
[2023-12-21 02:05] LABS: Basophils % 0.4 %; Eosinophils # 0.1 10^3/uL (0.0-0.8); Eosinophils % 0.7 %; Hematocrit 43.1 % (36-47); Lymphocytes # 1.9 10^3/uL (0.8-4.8); Lymphocytes % 18.9 %; Mean Corpuscular HGB Conc 35.3 g/dL (30-55); Mean Corpuscular Hemoglobin 30.8 pg (27-33); Mean Corpuscular Volume 87.4 fl (85-98); Mean Platelet Volume 10.7 fL (7.4-10.4); Monocytes # 0.5 10^3/uL (0.2-0.9); Monocytes % 5.1 %; Neutrophils # 7.36 10^3/uL (1.8-7.7); Neutrophils % 74.4 %; Nucleated Red Blood Cells % 0 %; Platelet Count 281 10^3/cmm (157-399); Red Blood Count 4.93 10^6/uL (3.85-5.65); Red Cell Distribution Width 11.9 % (12.1-15.1); White Blood Count 9.89 10^3/uL (3.29-11.43)
[2023-12-21 02:15] LABS: HCG, Serum Qual Negative (Negative); Ketone (Acetest) Serum Negative (Negative)
[2023-12-21] MEDS: sodium chloride 0.9% 1,000 ML 999 ML IV ×2 (02:15→03:14)
[2023-12-21 02:23] LABS: Add Urine Microscopic? NO; Charge for UA Resulting for Rev
[2023-12-21 02:24] LABS: Bilirubin Urine Neg (Negative); Blood Urine Neg (Negative); Glucose Urine UA 4+ (Normal); Ketones Urine Negative (Negative); Leukocyte Esterase Urine Negative (Negative); Nitrate Urine Negative (Negative); Protein Urine Neg (Negative); Urine Appearance Clear (CLEAR); Urine Color Yellow (Yellow); Urobilinogen Urine Neg (Negative); pH Urine 7 (5-7)
[2023-12-21 02:24] LABS: Alanine Aminotransferase 14 U/L (0-33); Albumin Level 4.4 g/dL (3.5-5.2); Alcohol Level 146 mg/dL (0-10); Alkaline Phosphatase 104 U/L (35-105); Aspartate Amino Transferase 14 U/L (0-32); Blood Urea Nitrogen 9 mg/dL (6-20); Calcium 9.4 mg/dL (8.5-10.5); Carbon Dioxide 18 mmol/L (22-29); Chloride 104 mmol/L (98-107); Creatinine Clr Calc Pharmacy 121.2628; Globulin 3.1 g/dL (1.3-4.6); Glucose 361 mg/dL (65-115); Magnesium 1.9 mg/dL (1.7-2.3); Osmolality Calculated 301 mOsm/kg (285-295); Phosphorus 2.8 mg/dL (2.5-4.5); Salicylate 1.1 mg/dL (3-10); Sodium 139 mmol/L (136-145); Total Bilirubin 0.5 mg/dL (0.15-1.2); Total Protein 7.5 g/dL (6.6-8.7)
[2023-12-21 02:25] LABS: Acetaminophen < 5.0 ug/mL (10-30)
[2023-12-21] MEDS: insulin regular-human 100 units/1 mL 6 UNIT IVP (02:25)
[2023-12-21 02:33] LABS: Amphetamines Screen Urine Negative (Negative); Barbiturates Screen Urine Negative (Negative); Benzodiazepines Screen Urine Negative (Negative); Cocaine Screen Urine Negative (Negative); Opiate Screen Urine Negative (Negative); PCP Screen Urine Negative (Negative); THC Screen Urine Negative (Negative)
[2023-12-21 03:20] LABS: Glucose Point of Care 135 mg/dL (70-110)
[2023-12-21 03:35] VITALS: BP 150/113; PULSE 93; RESP 16; TEMP 37.4; O2SAT 97
== END 2023-12-21 03:36 | disposition home or self-care (01) ==
PROVIDERS: Emergency Provider Emergency Medicine; PCP Nurse Practitioner Family
DX: F10.129 Alcohol abuse with intoxication, unspecified (principal); Y90.6 Blood alcohol level of 120-199 mg/100 ml; E10.65 Type 1 diabetes mellitus with hyperglycemia; Z79.4 Long term (current) use of insulin; Z72.0 Tobacco use
CPT/HCPCS: 36415; 36416; 80053; 80306; 80307; 81003; 82009; 82962; 83735; 84100; 84703; 85025; 86140; 96361; 96374; 99284; J1815; J7030; Q0162

== ENCOUNTER 2024-07-23 15:32 | Emergency (ER) | payer BC, MEDICAID, SELFPAY ==
[2024-07-23 15:50] VITALS: BP 130/90; PULSE 104; RESP 16; TEMP 36.9; O2SAT 99; BMI 23.9
[2024-07-23 15:57] LABS: Glucose Point of Care 163 mg/dL (70-110)
[2024-07-23 17:14] LABS: Basophils % 0.3 %; Eosinophils % 0.2 %; Hematocrit 39.9 % (36-47); Lymphocytes # 0.7 10^3/uL (0.8-4.8); Mean Corpuscular HGB Conc 34.3 g/dL (30-55); Mean Corpuscular Hemoglobin 31.5 pg (27-33); Mean Corpuscular Volume 91.7 fl (85-98); Mean Platelet Volume 11.2 fL (7.4-10.4); Monocytes # 0.6 10^3/uL (0.2-0.9); Monocytes % 6.6 %; Neutrophils # 7.35 10^3/uL (1.8-7.7); Neutrophils % 84.6 %; Nucleated Red Blood Cells % 0 %; Platelet Count 255 10^3/cmm (157-399); Red Blood Count 4.35 10^6/uL (3.85-5.65); Red Cell Distribution Width 11.8 % (12.1-15.1)
[2024-07-23 17:36] LABS: ABG PCO2 37.4 mmHg (35-45); ABG PH Result 7.44 (7.35-7.45); Alveolar-Arterial Oxygen Gradi 2.3 mmHg (5-10); Arterial Blood Gas Hematocrit 41.4 % (37-47); Blood Gas Operator Identificat GD; Blood Gas Sample Site Brachial, left; Blood Gas Sample Type Arterial; HCO3 ABG 25.1 mmol/L (22-26); HGB O2 Sat 95.7 % (95-100); Ionized Calcium Level - ABG 1.2 mmol/L (1.1-1.4); Methemoglobin 1.1 % (0.4-1.5); Oxygen Device ROOM AIR; Oxygen Saturation ABG 97.7; PO2 ABG 86.4 mmHg (80.0-100.0); PO2 FiO2 Ratio Arterial Blood 411; Potassium Level - ABG 3.6 mmol/L (3.5-5.0); Total Hemoglobin 13.5 g/dL (12-16)
[2024-07-23 17:39] LABS: Alanine Aminotransferase 14 U/L (0-33); Albumin Level 4.6 g/dL (3.5-5.2); Alkaline Phosphatase 115 U/L (35-105); Anion Gap 15.6 (5-19); Aspartate Amino Transferase 15 U/L (0-32); Blood Urea Nitrogen 10 mg/dL (6-20); C Reactive Protein 10.5 mg/L (0.0-4.9); Calcium 9.5 mg/dL (8.5-10.5); Carbon Dioxide 27 mmol/L (22-29); Chloride 101 mmol/L (98-107); Creatinine Clr Calc Pharmacy 146.5937; Globulin 2.9 g/dL (1.3-4.6); Glomerular Filtration Rate 145.9 mL/min (90-130); Glucose 161 mg/dL (65-115); Osmolality Calculated 293 mOsm/kg (285-295); Potassium 3.6 mmol/L (3.5-5.1); Sodium 140 mmol/L (136-145); Total Bilirubin 0.6 mg/dL (0.15-1.2); Total Protein 7.5 g/dL (6.6-8.7)
[2024-07-23 17:40] LABS: Lactic Sepsis W/Reflex 1.4 mmol/L (0.5-2.2)
[2024-07-23 17:49] LABS: Bilirubin Urine Negative (Negative); Blood Urine 3+ (Negative); Glucose Urine UA Negative (Normal); Ketones Urine 1+ (Negative); Leukocyte Esterase Urine Negative (Negative); Nitrate Urine Negative (Negative); Protein Urine 1+ (Negative); Specific Gravity, Urine 1.017 (1.005-1.030); Urine Appearance Clear (CLEAR); Urine Color Yellow (Yellow)
[2024-07-23 17:54] LABS: Bacteria Urine None Seen /hpf; WBC Urine 0-5 /hpf (0-5)
--- NOTE | 2024-07-23 17:54 | ED_ITS ---
HPI - Nausea/Vomiting/Diarrhea 2 General: Chief complaint: Nausea/Vomiting/Diarrhea Stated complaint: vomiting Time Seen by Provider: 07/23/24 17:10 Source: patient Mode of arrival: ambulatory Limitations: no limitations History of Present Illness: Patient is a 29-year-old female with past medical history of type 1 diabetes and multiple incidences of DKA who presents to the emergency department complaining of nausea and vomiting for the past couple of days. States this feels similar to her prior episodes of DKA. She notes that a few months ago she had her insulin switched from Humalog to some other generic brand and that her sugars have been higher since then. States that over the past 24 hours she has had recordings of greater than 400 on her CGM. No changes with her medication regimen. States she has vomited too many times to count, sometimes she will go an hour without vomiting but otherwise if she is not vomiting it is because she has nothing to throw up. Reports decreased appetite and some epigastric abdominal pain from retching. She is not reporting any fevers, constipation or diarrhea, chest pain or shortness of breath, or any other symptoms at this time. She is stating currently that her primary concern is the nausea, she has not taken anything for this. Currently vitals are unremarkable. MD elicited complaint: nausea and vomiting Pertinent past history: other (Diabetes) Onset (ago): day(s) Associated nausea: Yes Associated abdominal pain: Yes Location of pain: Epigastric Pain consistency: constant Quality: cramping Exacerbating factors: vomiting Relieving factors: none Associated symtoms: Reports nausea; Denies chest pain, diaphoresis, dizziness, dysuria, headache(s) or palpitations Related Data Home Medications Medication Instructions Recorded Confirmed insulin glargine 100 unit/mL (3 25 unit SUBCUT BID 04/28/20 06/25/23 mL) subcutaneous pen (Lantus Solostar U-100 Insulin) insulin lispro 100 unit/mL 5 unit SUBCUT TID 05/17/20 06/25/23 subcutaneous pen (Humalog KwikPen (U-100) Insulin) buspirone 15 mg tablet 15 mg PO TID 07/29/22 06/25/23 vortioxetine 20 mg tablet 20 mg PO DAILY 06/25/23 06/25/23 (Trintellix) Previous Rx's Medication Instructions Recorded ondansetron HCl 4 mg tablet 4 mg PO Q8H #30 tabs 07/23/24 Allergies Allergy/AdvReac Type Severity Reaction Status Date / Time No Known Allergies Allergy Verified 09/02/23 19:24 Review of Systems 2 General: Reports: 10 or more systems reviewed and unremarkable except in HPI and below Const: Denies: fever(s), chills, change in appetite, change in weight or diaphoresis ENMT: Denies: throat pain or hoarseness Card: Denies: chest pain, palpitations or lightheadedness Resp: Denies: dyspnea, productive cough or wheezing GI: Reports: abdominal pain, nausea and vomiting; Denies: diarrhea or constipation : Denies: flank pain, difficulty voiding, dysuria, urinary frequency or urinary urgency Musc: Denies: neck pain or back pain Skin/Breast: Denies: rash or new lesions Neuro: Denies: headache(s) or dizziness PFSH ED 2 PFSH: Medical History Type 1 diabetes Depression Surgical History Previous section Family History Grandmother Breast cancer maternal Family history of thyroid problem maternal Grandfather Diabetes paternal Hypertension paternal Father Hypertension Denies family history of Colon cancer Ovarian cancer Heart disease Bleeding disorder Uterine cancer Stroke Hyperchloremia Social History Smoking and tobacco/nicotine status: current some day tobacco/nicotine user Substance/Drug Use: never Physical Exam 2 Const: COMMON NORMALS: no acute distress, average body habitus, patient oriented x3, no limitations, healthy appearing, alert and well nourished G ENERAL APPEARANCE: cooperative and comfortable ORIENTATION/CONSCIOUSNESS: Yes awake HENMT: COMMON NORMALS: normocephalic, atraumatic, hearing grossly normal bilaterally, external ears normal, Normal external nose present, Normal nasal mucous membranes and turbinates present and moist oral mucous membranes HEAD & SCALP: normocephalic and atraumatic NOSE: Normal external nose present and Normal nasal mucous membranes and turbinates present EXTERNAL EAR: Yes external ears normal OTHER: No fruity breath noted Eye: COMMON NORMALS: Equal, round and reactive pupils present, EOMs intact bilaterally, conjunctivae normal and normal visual fontenot by confrontation C ONJUNCTIVA: Yes conjunctivae normal PUPIL: Yes Equal, round and reactive pupils present Neck/C-Spine: COMMON NORMALS: full ROM, supple, no meningeal signs and no JVD Resp: COMMON NORMALS: normal respiratory effort, No retractions, No use of accessory muscles and clear to auscultation bilaterally AUSCULTATION: clear to auscultation bilaterally, no crackles, no rales, no rhonchi and no wheezes OTHER: No Kussmaul respirations Cardio: COMMON NORMALS: no JVD, regular rate, regular rhythm, S1 normal heart sound present, S2 normal heart sound present, No gallops present (Cardio), No clicks present (Cardio), No murmurs present (Cardio), No rub (Cardio) and Peripheral pulses 2+ throughout RATE: regular rate RHYTHM: regular rhythm HEART SOUNDS: S1 normal heart sound present and S2 normal heart sound present PERIPHERAL PULSES: Peripheral pulses 2+ throughout GI: COMMON NORMALS: Normal to inspection, nondistended, normoactive bowel sounds present, Soft to palpation, non-tender, No hepatosplenomegaly present and no masses AUSCULTATION: Yes normoactive bowel sounds PALPATION: Yes Soft to palpation, No Guarding due to palpation present (GI), No Rigid due to palpation and Yes No hepatosplenomegaly present RECTAL EXAM: deferred : COMMON NORMALS: Yes no CVA tenderness BLADDER/KIDNEY EXAM: Yes no CVA tenderness Back/Pelvis: COMMON NORMALS: no CVA tenderness Extremity: COMMON NORMALS: normal to inspection and full ROM Neuro: COMMON NORMALS: patient oriented x3, moves all extremities, no focal motor deficits and no sensory deficits noted SENSORIUM/ORIENTATION: Yes alert MENINGEAL SIGNS: Yes no meningeal signs Psych: COMMON NORMALS: mental status grossly normal, cooperative and speech normal SPEECH: Yes normal speech Skin: COMMON NORMALS: no rashes or lesions noted GENERAL SKIN EXAM: no rashes or lesions noted Course 2 Vital Signs: Vital signs: Vital Signs Temperature 98.4 F 07/23/24 15:50 Pulse Rate 88 07/23/24 19:08 Respiratory Rate 16 07/23/24 15:50 Blood Pressure 135/82 07/23/24 19:08 Pulse Oximetry 98 07/23/24 19:08 Oxygen Delivery Me thod Room Air 07/23/24 15:50 MDM - Nausea/Vomiting/Diarrhea Medical Decision Making Patient reported history of DKA, stating she had it back in 2019 as well as in 2021. She states that her vomiting and condition overall was similar, had blood sugars as high as 400 at home. Here in triage her fingerstick blood sugar was 163 and on metabolic panel it was 161. Did give her a liter of fluids as well as Zofran through an IV. Serum ketones were negative, no signs of infection on her blood work, ABG unremarkable, electrolytes normal, kidney function normal, overall unremarkable lab workup. Negative urinalysis and negative swab for COVID flu RSV. This could likely be viral, other etiology includes food poisoning or gastroenteritis. Her vitals have been normal. Very low suspicion that this is DKA, she notes significant improvement after fluids and Zofran and is comfortable with treating at home with nausea medications. Will have her closely follow-up with primary care to discuss her medications and make sure that these are still okay for her, and strict return precautions were given of which patient understands. Lab Data 07/23/24 16:44 07/23/24 16:44 Laboratory Results WBC 8.70 10^3/uL (3.29-11.43) 07/23/24 16:44 RBC 4.35 10^6/uL (3.85-5.65) 07/23/24 16:44 Hgb 13.70 g/dL (11.27-16.99) 07/23/24 16:44 Hct 39.9 % (36-47) 07/23/24 16:44 MCV 91.7 fl (85-98) 07/23/24 16:44 MCH 31.5 pg (27-33) 07/23/24 16:44 MCHC 34.3 g/dL (30-55) 07/23/24 16:44 RDW 11.8 % (12.1-15.1) L 07/23/24 16:44 Plt Count 255 10^3/cmm (157-399) 07/23/24 16:44 MPV 11.2 fL (7.4-10.4) H 07/23/24 16:44 Neut % (Auto) 84.6 % 07/23/24 16:44 Lymph % (Auto) 8.0 % 07/23/24 16:44 [place] % (Auto) 6.6 % 07/23/24 16:44 Eos % (Auto) 0.2 % 07/23/24 16:44 Baso % (Auto) 0.3 % 07/23/24 16:44 Neut # (Auto) 7.35 10^3/uL (1.8-7.7) 07/23/24 16:44 Lymph # (Auto) 0.7 10^3/uL (0.8-4.8) L 07/23/24 16:44 [place] # (Auto) 0.6 10^3/uL (0.2-0.9) 07/23/24 16:44 Eos # (Auto) 0.0 10^3/uL (0.0-0.8) 07/23/24 16:44 Baso # (Auto) 0.0 10^3/uL (0.0-0.1) 07/23/24 16:44 Nucleated RBC % (auto) 0 % 07/23/24 16:44 Nucleated RBCs # 0.0 /100WBC 07/23/24 16:44 Specimen Type Arterial 07/23/24 17:18 Sample Site Brachial, left 07/23/24 17:18 ABG pH 7.44 (7.35-7.45) 07/23/24 17:18 ABG pCO2 37.4 mmHg (35-45) 07/23/24 17:18 ABG pO2 86.4 mmHg (80.0-100.0) 07/23/24 17:18 ABG PO2/FiO2 Ratio 411 07/23/24 17:18 ABG HCO3 25.1 mmol/L (22-26) 07/23/24 17:18 ABG O2 Saturation 97.7 07/23/24 17:18 ABG Base Excess 1.0 mmol/L (-2.0-2.0) 07/23/24 17:18 Jasen Test N/a 07/23/24 17:18 A-a O2 Gradient 2.3 mmHg (5-10) L 07/23/24 17:18 Hematocrit 41.4 % (37-47) 07/23/24 17:18 Hgb O2 Saturation 95.7 % (95-100) 07/23/24 17:18 Carboxyhemoglobin 1.0 %THgb (0.4-20.1) 07/23/24 17:18 Methemoglobin 1.1 % (0.4-1.5) 07/23/24 17:18 Total Hemoglobin 13.5 g/dL (12-16) 07/23/24 17:18 Sodium 140.0 mmol/L (131-143) 07/23/24 17:18 Potassium 3.6 mmol/L (3.5-5.0) 07/23/24 17:18 Glucose 166.0 mg/dL (70-115) H 07/23/24 17:18 Ionized Calcium 1.2 mmol/L (1.1-1.4) 07/23/24 17:18 O2 Delivery Device Room air 07/23/24 17:18 FiO2 21.0 % 07/23/24 17:18 Bundle Tier ID Gd 07/23/24 17:18 Sodium 140 mmol/L (136-145) 07/23/24 16:44 Potassium 3.6 mmol/L (3.5-5.1) 07/23/24 16:44 Chloride 101 mmol/L (98-107) 07/23/24 16:44 Carbon Dioxide 27 mmol/L (22-29) 07/23/24 16:44 Anion Gap 15.6 (5-19) 07/23/24 16:44 BUN 10 mg/dL (6-20) 07/23/24 16:44 Creatinine 0.5 mg/dL (0.5-0.9) 07/23/24 16:44 GFR Calculation 145.9 mL/min (90-130) H 07/23/24 16:44 Glucose 161 mg/dL (65-115) H 07/23/24 16:44 POC Glucose 163 mg/dL (70-110) H 07/23/24 15:53 Calculated Osmolality 293 mOsm/kg (285-295) 07/23/24 16:44 Lactic Acid 1.4 mmol/L (0.5-2.2) 07/23/24 16:44 Calcium 9.5 mg/dL (8.5-10.5) 07/23/24 16:44 Total Bilirubin 0.6 mg/dL (0.15-1.2) 07/23/24 16:44 AST 15 U/L (0-32) 07/23/24 16:44 ALT 14 U/L (0-33) 07/23/24 16:44 Alkaline Phosphatase 115 U/L (35-105) H 07/23/24 16:44 C-Reactive Protein 10.5 mg/L (0.0-4.9) H 07/23/24 16:44 Total Protein 7.5 g/dL (6.6-8.7) 07/23/24 16:44 Albumin 4.6 g/dL (3.5-5.2) 07/23/24 16:44 Globulin 2.9 g/dL (1.3-4.6) 07/23/24 16:44 Urine Color Yellow (Yellow) 07/23/24 17:39 Urine Appearance Clear (CLEAR) 07/23/24 17:39 Urine pH 8.0 (5-7) A 07/23/24 17:39 Ur Specific [place] 1.017 (1.005-1.030) 07/23/24 17:39 Urine Protein 1+ (Negative) A 07/23/24 17:39 Urine Glucose (UA) Negative (Normal) 07/23/24 17:39 Urine Ketones 1+ (Negative) H 07/23/24 17:39 Urine Blood 3+ (Negative) A 07/23/24 17:39 Urine Nitrate Negative (Negative) 07/23/24 17:39 Urine Bilirubin Negative (Negative) 07/23/24 17:39 Urine Urobilinogen 1.0 mg/dL (Negative) 07/23/24 17:39 Ur Leukocyte Esterase Negative (Negative) 07/23/24 17:39 Urine RBC 11-20 /hpf (0-2) H 07/23/24 17:39 Urine WBC 0-5 /hpf (0-5) 07/23/24 17:39 Ur Squamous Epith Cells 6-10 /hpf (0-5) 07/23/24 17:39 Amorphous Sediment Not Reportable 07/23/24 17:39 Urine Bacteria None seen /hpf (NONE) 07/23/24 17:39 Hyaline Casts 0.40 /lpf 07/23/24 17:39 Serum Ketones Negative (Negative) 07/23/24 16:44 Coronavirus (PCR) Negative (Negative) 07/23/24 18:00 Influenza A (PCR) Negative (Negative) 07/23/24 18:00 Influenza Type B (PCR) Negative (Negative) 07/23/24 18:00 RSV (PCR) Negative (Negative) 07/23/24 18:00 No radiology studies performed this visit Discharge Plan Discharge Patient Disposition: Home Clinical Impression: Intractable vomiting with nausea Condition: Stable Prescriptions: New ondansetron HCl 4 mg tablet 4 mg PO Q8H Qty: 30 0RF No Action insulin lispro [Humalog KwikPen Insulin] 100 unit/mL insulin pen 5 unit SUBCUT TID Patient Comments: Patient is on a sliding scale. Rx Instructions: Continue carb counting dose Trintellix 20 mg tablet 20 mg PO DAILY buspirone 15 mg tablet 15 mg PO TID Lantus Solostar U-100 Insulin 100 unit/mL (3 mL) insulin pen 25 unit SUBCUT BID Discharge Orders: Discharge ED (Routine); Ordered 07/23/24 Ordered By: Morgan Huang Referrals: Marcella Burton FNP [Primary Care Provider] - Activity Restrictions/Additional Instructions: Take your Zofran for nausea. Drink plenty of fluids. Please continue closely monitoring your blood sugars and taking your medications as prescribed. Close follow-up with primary care next week as we discussed. If you are continuing to have vomiting, have other concerning symptoms, uncontrollable sugars, or anything concerning please return to the emergency department. Coding Level of Care Code ED [employer] for Melissa Quiroga
[2024-07-23 17:56] VITALS: BP 138/88; PULSE 92; O2SAT 97
[2024-07-23] MEDS: ondansetron 2 mg/ML SDV 2 mL 8 MG IVP (18:03)
[2024-07-23 18:04] LABS: Ketone (Acetest) Serum Negative (Negative)
[2024-07-23] MEDS: sodium chloride 0.9% 1,000 ML 999 ML IV (18:04)
[2024-07-23 18:17] LABS: Add Urine Culture? Yes
[2024-07-23 18:21] VITALS: BP 139/95; PULSE 85; O2SAT 100
--- NOTE | 2024-07-23 18:54 | PC.NURSE ---
Assumed care from Deepa DELGADO at this time.
[2024-07-23 19:08] VITALS: BP 135/82; PULSE 88; O2SAT 98
[2024-07-23 19:09] LABS: Covid PCR NEGATIVE (Negative); Influenza A NEGATIVE (Negative); Influenza B NEGATIVE (Negative); Respiratory Syncytial Virus Ce NEGATIVE (Negative)
[2024-07-23 19:30] VITALS: BP 135/82; PULSE 102; O2SAT 98
== END 2024-07-23 19:31 | disposition home or self-care (01) ==
PROVIDERS: Emergency Medicine; Emergency Provider Physician Assistant; PCP Nurse Practitioner Family
DX: R11.2 Nausea with vomiting, unspecified (principal); Z11.52 Encounter for screening for COVID-19; Z72.0 Tobacco use; E11.9 Type 2 diabetes mellitus without complications
CPT/HCPCS: 36415; 36416; 36600; 80051; 80053; 81001; 82009; 82330; 82805; 82962; 83605; 85025; 86140; 87040; 87086; 87637; 96374; 99284; J2405; J7030